=== PATIENT | female | born 1970 | race Caucasian/White ===

== ENCOUNTER 2017-03-09 14:13 | Emergency (ER) | payer BC ==
[2017-03-09 14:28] VITALS: BP 114/69
--- NOTE | 2017-03-09 14:45 | EDM.PDOC ---
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. She states that she gets her 15 minute break every 2 hours and does have a dinner break 4 hours into the shift. Therefore she should be well hydrated and blood sugar should be maintained. She states that she shakes and she feels dizzy. He finds it difficult to keep on with her shift. She was wondering if there was medication that might help this. On examination in the room she is pacing the floor she is standing and moving constantly him side to side. She talks little faster than normal. Blood pressure tends to run low such as 98-95 systolic. It is possible that prolonged standing may be causing some degree of orthostasis. However she is on several psychoactive made medications that may be causing a tremor or shaking is due to the timeframe that they're taken in. Particularly the Seroquel. She uses 2 Xanax tablets at bedtime to help sleep. On my assessment she appears quite anxious. Onset: Other (Symptoms been going on for at least 3-4 months.) Duration: Week(s):, Chronic Location: Reports: Generalized (Generalized sensation of feeling restless, shaky ,weak and perhaps dizzy. She feels strongly that it's the continual looking at the computer monitor and bank cashier register that causes the problems. She's had her glasses adjusted 4 different times with no improvement in symptoms.) Quality: Reports: Same as Previous Episode Severity: Moderate Improves with: Reports: None Worsens with: Reports: Other (Continued work seems to make the problem gradually worsened.) Context: Reports: Other Associated Symptoms: Reports: Weakness. 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 (see below) - Related Data Allergies Allergy/AdvReac Type Severity Reaction Status Date / Time acetaminophen [From Percocet] Allergy Nausea and Verified 03/09/17 14:28 Vomiting aspirin [From Percodan] Allergy Nausea and Verified 03/09/17 14:28 Vomiting oxycodone HCl [From Percocet] Allergy Nausea and Verified 03/09/17 14:28 Vomiting oxycodone terephthalate Allergy Nausea and Verified 03/09/17 14:28 [From Percodan] Vomiting prochlorperazine edisylate Allergy Seizure Verified 03/09/17 14:28 [From Compazine] prochlorperazine maleate Allergy Seizure Verified 03/09/17 14:28 [From Compazine] Home Meds: Home Meds ALPRAZolam [Xanax] 2 mg PO ASDIRECTED PRN 04/08/16 [History] Mirtazapine [Remeron] 45 mg PO BEDTIME 04/08/16 [History] QUEtiapine Fumarate [Seroquel] 600 mg PO BEDTIME 04/08/16 [History] Topiramate 25 mg PO BID 04/08/16 [History] ALPRAZolam [Xanax] 1 mg PO BID #12 tablet 03/09/17 [Rx] Past Medical History Other HEENT History: jaw surgery for underbite Respiratory History: Reports: Asthma, Other (See Below) Other Respiratory History: latent TB Other OB/BYN History: breast surgery Psychiatric History: Reports: Anxiety Other Psychiatric History: insominia - Infectious Disease History Infectious Disease History: Reports: Chicken Pox Social & Family History - Tobacco Use Smoking Status *Q: Never Smoker Second Hand Smoke Exposure: No - Caffeine Use Caffeine Use: Reports: None - Recreational Drug Use Recreational Drug Use: No - Living Situation & Occupation Living situation: Reports: Single Occupation: Employed [employer] [facility] - Review of Systems Review Of Systems: See Below Constitutional: Reports: Fatigue, Weight Gain. Denies: Fever, Chills, Malaise, Weakness, Night Sweats, Diaphoresis, Decreased Appetite, Weight Loss HEENT: Reports: No Symptoms Respiratory: Reports: No Symptoms Cardiovascular: Reports: No Symptoms Endocrine: Reports: Fatigue GI/Abdominal: Reports: Constipation : Reports: No Symptoms Musculoskeletal: Reports: No Symptoms Skin: Reports: No Symptoms Neurological: Reports: Dizziness, Weakness. Denies: Headache, Numbness, Paresthesia, Pre-Existing Deficit, Seizure, Syncope, Tingling, Tremors, Trouble Speaking, Difficulty Walking, Change in Speech, Gait Disturbance Psychiatric: Reports: Anxiety, Mood Lability. Denies: Suicidal Ideation Hematologic/Lymphatic: Reports: No Symptoms Immunologic: Reports: No Symptoms ED EXAM, DIZZINESS - Physical Exam Exam: See Below Exam Limited By: No Limitations General Appearance: Alert, WD/WN, Other (Appears moderately anxious and unable to stand still. She appears mildly agitated. By history she has bipolar affective disorder with chronic insomnia. She said she sleeps well.) Eye Exam: Bilateral Eye: Normal Inspection Throat/Mouth: Normal Inspection, Normal Lips, Normal Oropharynx Head Exam: Atraumatic, Normocephalic Neck: Normal Inspection, Supple, Non-Tender, Full Range of Motion Respiratory/Chest: No Respiratory Distress, Lungs Clear, Normal Breath Sounds, Respiratory Distress Cardiovascular: Normal Peripheral Pulses, Regular Rate, Rhythm, No Edema, No Gallop, No Murmur GI/Abdominal: Normal Bowel Sounds, Soft, Non-Tender, No Organomegaly Neurological: Alert, Normal Dorsiflexion, CN II-XII Intact, Normal Gait, Oriented x 3 Back Exam: Normal Inspection, Full Range of Motion Extremities: Normal Inspection, Normal Range of Motion, Non-Tender, Normal Capillary Refill Psychiatric: Anxious, Other Skin Exam: Warm, Dry (Mildly agitated), Intact, Normal Color, No Rash Course - Vital Signs Last Recorded V/S: Last Vital Signs Temp 36.2 C 03/09/17 14:25 Pulse 82 03/09/17 14:25 Resp 20 03/09/17 14:25 BP 114/69 03/09/17 14:25 Pulse Ox 100 03/09/17 14:25 - Radiology Interpretation Free Text/Narrative:: 46-year-old female with psychiatric illness I suspect bipolar affective disorder presents to the ED with complaints that 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 she develops generalized sense of unwellness. The symptoms include sense of dizziness shakiness decreased alertness in terms of ability to focus on task at hand. By history she gets a dinner break 4 hours and her shift and she keeps water till at all times therefore stopped appears to be well hydrated and unlikely to have any physiological hypoglycemia. She finds the symptoms quite distressful. I don't have any magic cure for this I'm going to suggest a 1 mg Xanax at the noon hour meal to see if this relaxes her enough to finish her shift. She is only to take the extra milligram of Xanax on the days that she works. I gave her 10 tablets as a trial of medication to see if this would help. Departure - Departure Time of Disposition: 14:52 Disposition: Home, Self-Care 01 Condition: Fair Clinical Impression: Orthostatic dizziness, Shakiness, Generalized anxiety disorder - Discharge Information Prescriptions: ALPRAZolam [Xanax] 1 mg PO BID #12 tablet Referrals: PCP,None [Primary Care Provider] - Forms: ED Department Discharge Additional Instructions: Evaluation in the emergency room today in regards to problems occurring in the workplace. Identified for the last 3-4 months that you're working at the [employer] between 4 and 5 hours you start to feel unwell. This means that you develop a sense of dizziness and offkilter off balance feeling and shakiness. It appears that you maintain hydration and get a dinner break 4 hours anterior shift so therefore low blood sugar should not be playing a role in current symptoms. Her current medications do carry a great deal of side effects that may or may not be contributing to symptoms. Prolonged standing does lower your blood pressure and your blood pressure tends to be on the low side. 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
== END 2017-03-09 15:00 | disposition home or self-care (01) ==
LOC: JD.ED 14:13
DX: R42 Dizziness and giddiness (principal); F41.1 Generalized anxiety disorder; J45.909 Unspecified asthma, uncomplicated; Z88.6 Allergy status to analgesic agent; Z88.8 Allergy status to other drugs, medicaments and biological substances
CPT/HCPCS: 99283; 99284

== ENCOUNTER 2017-03-18 17:13 | Emergency (ER) | payer BC | END 2017-03-18 18:20 | disposition left against medical advice (07) | LOC: JD.ED 17:13 | DX: Z53.21 Procedure and treatment not carried out due to patient leaving prior to being seen by health care provider (principal) | CPT/HCPCS: 99284-25 ==

== ENCOUNTER 2018-09-27 07:20 | Day surgery (SDC) | payer MEDICAID ==
[~2018-09-27 07:20] MED LIST: Lactated Ringers 1,000 ML IV SCH; Lidocaine 1%/Sod Bicarbonate in NS 8.4% 1 ML Syringe IDERM PRN; Sodium Chloride 0.9% 10 ML Syringe FLUSH PRN
--- NOTE | 2018-09-27 07:34 | PCM.PREANE ---
Preanesthetic Assessment - Anesthesia/Transfusion/Family Hx Anesthesia History: Prior Anesthesia Without Reaction Family History of Anesthesia Reaction: No Transfusion History: No Prior Transfusion(s) - Review of Systems General: No Symptoms Pulmonary: No Symptoms Cardiovascular: No Symptoms Gastrointestinal: Abdominal Pain (LLQ) Neurological: No Symptoms Other: Reports: Easy Bruising - Physical Assessment NPO Status Date: 09/26/18 NPO Status Time: 00:00 Pulse: 74 O2 Sat by Pulse Oximetry: 95 Respiratory Rate: 16 Blood Pressure: 124/69 Temperature: 36.6 C Height: 1.83 m Weight: 88.904 kg ASA Class: 3 Mental Status: Alert & Oriented x3 Airway Class: Mallampati = 2 Dentition: Reports: Dentures Thyro-Mental Finger Breadths: 3 Mouth Opening Finger Breadths: 3 ROM/Head Extension: Limited/Partial (muscle pain) Lungs: Clear to Auscultation, Normal Respiratory Effort Cardiovascular: Regular Rate, Regular Rhythm - Allergies Allergies/Adverse Reactions: Allergies Allergy/AdvReac Type Severity Reaction Status Date / Time acetaminophen [From Percocet] Allergy Nausea and Verified 09/24/18 14:28 Vomiting aspirin [From Percodan] Allergy Nausea and Verified 09/24/18 14:28 Vomiting oxycodone HCl [From Percocet] Allergy Nausea and Verified 09/24/18 14:28 Vomiting oxycodone terephthalate Allergy Nausea and Verified 09/24/18 14:28 [From Percodan] Vomiting prochlorperazine edisylate Allergy Seizure Verified 09/24/18 14:28 [From Compazine] prochlorperazine maleate Allergy Seizure Verified 09/24/18 14:28 [From Compazine] Pet Dander Allergy Shortness Uncoded 09/24/18 14:28 of Breath - Blood Blood Available: No Product(s) Available: None - Anesthesia Plan Beta Janeen: Metoprolol Med Last Dose Date: 09/26/18 Med Last Dose Time: 20:00 - Acknowledgements Anesthesia Type Planned: MAC Pt an Appropriate Candidate for the Planned Anesthesia: Yes Alternatives and Risks of Anesthesia Discussed w Pt/Guardian: Yes Pt/Guardian Understands and Agrees with Anesthesia Plan: Yes PreAnesthesia Questionnaire HEENT History: Reports: None Other HEENT History: jaw surgery for underbite Cardiovascular History: Reports: None Respiratory History: Reports: Asthma Other Respiratory History: latent TB Gastrointestinal History: Reports: None, GERD Genitourinary History: Reports: None 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 Other OB/BYN History: breast surgery Musculoskeletal History: Reports: None Neurological History: Reports: None Psychiatric History: Reports: Anxiety, Depression Other Psychiatric History: insominia Endocrine/Metabolic History: Reports: None Hematologic History: Reports: None Immunologic History: Reports: None Oncologic (Cancer) History: Reports: None Dermatologic History: Reports: None - Infectious Disease History Infectious Disease History: Reports: Chicken Pox, Other (See Below) Other Infectious Disease History: latent TB - Past Surgical History Head Surgeries/Procedures: Reports: None Other HEENT Surgeries/Procedures: Jaw Surgery Cardiovascular Surgical History: Reports: None Respiratory Surgical History: Reports: None GI Surgical History: Reports: Colonoscopy, EGD Female Surgical History: Reports: Breast Implant Endocrine Surgical History: Reports: None Neurological Surgical History: Reports: None Musculoskeletal Surgical History: Reports: None Oncologic Surgical History: Reports: None Dermatological Surgical History: Reports: None - SUBSTANCE USE Smoking Status *Q: Never Smoker Tobacco Use Within Last Twelve Months: No Second Hand Smoke Exposure: No Days Per Week of Alcohol Use: 0 Number of Drinks Per Day: 0 Total Drinks Per Week: 0 Recreational Drug Use History: No - HOME MEDS Home Medications: Home Meds . [No Known Home Meds] 09/24/18 [History] - CURRENT (IN HOUSE) MEDS Current Meds: Current Medications Lactated Ringer's (Ringers, Lactated) 1,000 mls @ 125 mls/hr IV ASDIRECTED SANA Lidocaine/Sodium Bicarbonate (Buffered Lidocaine 1% In Ns 8.4%) 0.25 ml IDERM ONETIME PRN PRN Reason: Prior to IV Start Sodium Chloride (Saline Flush) 10 ml FLUSH ASDIRECTED PRN PRN Reason: Keep Vein Open
[2018-09-27] MEDS ORDERED: Propofol 200 MG/20 ML SDV ONE (08:13)
[2018-09-27] MEDS ORDERED: fentaNYL 100 MCG/2 ML SDV ONE (08:14)
[2018-09-27] MEDS ORDERED: Midazolam 1 MG/ML 2 ML SDV ONE (08:14)
[2018-09-27] MEDS ORDERED: Lidocaine 1% 4 ML ONE (08:15)
--- NOTE | 2018-09-27 08:30 | PCM.PREANE ---
Preanesthetic Assessment - Anesthesia/Transfusion/Family Hx Anesthesia History: Prior Anesthesia Without Reaction Family History of Anesthesia Reaction: No Transfusion History: No Prior Transfusion(s) - Review of Systems General: Appetite Pulmonary: No Symptoms Cardiovascular: No Symptoms Gastrointestinal: Abdominal Pain Neurological: No Symptoms Other: Reports: Depression, Anxiety (Very apprehensive this morning. All questions answered, requesting medications to help her relax. ) - Physical Assessment NPO Status Date: 09/27/18 NPO Status Time: 07:20 (Sips of Tea) Pulse: 64 O2 Sat by Pulse Oximetry: 100 Respiratory Rate: 20 Blood Pressure: 108/68 Temperature: 37.2 C Vital Signs: Last Vital Signs Temp 36.6 C 09/27/18 07:50 Pulse 74 09/27/18 07:50 Resp 16 09/27/18 07:50 BP 124/69 09/27/18 07:50 Pulse Ox 95 09/27/18 07:50 Height: 1.78 m Weight: 67.132 kg ASA Class: 2 Mental Status: Alert & Oriented x3 Airway Class: Mallampati = 2 Dentition: Reports: Normal Dentition, Caries Thyro-Mental Finger Breadths: 3 Mouth Opening Finger Breadths: 3 ROM/Head Extension: Full Lungs: Clear to Auscultation, Normal Respiratory Effort Cardiovascular: Regular Rate, Regular Rhythm - Allergies Allergies/Adverse Reactions: Allergies Allergy/AdvReac Type Severity Reaction Status Date / Time acetaminophen [From Percocet] Allergy Nausea and Verified 09/24/18 14:28 Vomiting aspirin [From Percodan] Allergy Nausea and Verified 09/24/18 14:28 Vomiting oxycodone HCl [From Percocet] Allergy Nausea and Verified 09/24/18 14:28 Vomiting oxycodone terephthalate Allergy Nausea and Verified 09/24/18 14:28 [From Percodan] Vomiting prochlorperazine edisylate Allergy Seizure Verified 09/24/18 14:28 [From Compazine] prochlorperazine maleate Allergy Seizure Verified 09/24/18 14:28 [From Compazine] Pet Dander Allergy Shortness Uncoded 09/24/18 14:28 of Breath - Blood Blood Available: No Product(s) Available: None - Anesthesia Plan Pre-Op Medication Ordered: Anxiolytic - Acknowledgements Anesthesia Type Planned: MAC Pt an Appropriate Candidate for the Planned Anesthesia: Yes Alternatives and Risks of Anesthesia Discussed w Pt/Guardian: Yes Pt/Guardian Understands and Agrees with Anesthesia Plan: Yes PreAnesthesia Questionnaire HEENT History: Reports: None Other HEENT History: jaw surgery for underbite Cardiovascular History: Reports: None Respiratory History: Reports: Asthma Other Respiratory History: latent TB Gastrointestinal History: Reports: None, GERD Genitourinary History: Reports: None 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 Other OB/BYN History: breast surgery Musculoskeletal History: Reports: None Neurological History: Reports: None Psychiatric History: Reports: Anxiety, Depression Other Psychiatric History: insominia Endocrine/Metabolic History: Reports: None Hematologic History: Reports: None Immunologic History: Reports: None Oncologic (Cancer) History: Reports: None Dermatologic History: Reports: None - Infectious Disease History Infectious Disease History: Reports: Chicken Pox, Other (See Below) Other Infectious Disease History: latent TB - Past Surgical History Head Surgeries/Procedures: Reports: None Other HEENT Surgeries/Procedures: Jaw Surgery Cardiovascular Surgical History: Reports: None Respiratory Surgical History: Reports: None GI Surgical History: Reports: Colonoscopy, EGD Female Surgical History: Reports: Breast Implant Endocrine Surgical History: Reports: None Neurological Surgical History: Reports: None Musculoskeletal Surgical History: Reports: None Oncologic Surgical History: Reports: None Dermatological Surgical History: Reports: None - SUBSTANCE USE Smoking Status *Q: Never Smoker Tobacco Use Within Last Twelve Months: No Second Hand Smoke Exposure: No Days Per Week of Alcohol Use: 0 Number of Drinks Per Day: 0 Total Drinks Per Week: 0 Recreational Drug Use History: No - HOME MEDS Home Medications: Home Meds . [No Known Home Meds] 09/24/18 [History] - CURRENT (IN HOUSE) MEDS Current Meds: Current Medications Lactated Ringer's (Ringers, Lactated) 1,000 mls @ 125 mls/hr IV ASDIRECTED SANA Last Admin: 09/27/18 07:50 Dose: 125 mls/hr Lidocaine/Sodium Bicarbonate (Buffered Lidocaine 1% In Ns 8.4%) 0.25 ml IDERM ONETIME PRN PRN Reason: Prior to IV Start Last Admin: 09/27/18 07:49 Dose: 0.25 ml Sodium Chloride (Saline Flush) 10 ml FLUSH ASDIRECTED PRN PRN Reason: Keep Vein Open Discontinued Medications Fentanyl (Sublimaze) Confirm Administered Dose 100 mcg .ROUTE .STK-MED ONE Stop: 09/27/18 08:15 Lidocaine HCl (Xylocaine-Mpf 1%) Confirm Administered Dose 4 mls @ as directed .ROUTE .STK-MED ONE Stop: 09/27/18 08:16 Midazolam HCl (Versed 1 Mg/Ml) Confirm Administered Dose 2 mg .ROUTE .STK-MED ONE Stop: 09/27/18 08:15 Propofol (Diprivan 20 Ml) Confirm Administered Dose 600 mg .ROUTE .STK-MED ONE Stop: 09/27/18 08:14
[2018-09-27] MEDS ORDERED: Ondansetron 4 MG/2 ML SDV ONE (08:55)
--- NOTE | 2018-09-27 09:44 | PCM.OPNOTE ---
- General Post-Op/Procedure Note Date of Surgery/Procedure: 09/27/18 Operative Procedure(s): EGD with bx and colonoscopy to cecum with bx Pre Op Diagnosis: weight loss rectal bleeding Post-Op Diagnosis: Same Anesthesia Technique: MAC Primary Surgeon: Jorge Mcbride EBL in mLs: 0 Complications: None Condition: Good
--- NOTE | 2018-09-27 09:45 | PCM48HPAN ---
Post Anesthesia Note - EVALUATION WITHIN 48HRS OF ANESTHETIC Vital Signs in Normal Range: Yes Patient Participated in Evaluation: Yes Respiratory Function Stable: Yes Airway Patent: Yes Cardiovascular Function Stable: Yes Hydration Status Stable: Yes Pain Control Satisfactory: Yes Nausea and Vomiting Control Satisfactory: Yes Mental Status Recovered: Yes Pulse Rate: 74 SaO2: 100 Resp Rate: 16 Temperature: 36.4 C Blood Pressure: 100/73
[2018-09-27 10:52] VITALS: BP 103/71
--- NOTE | 2018-09-28 07:54 | OR ---
DATE OF OPERATION: 09/27/2018 SURGEON: Jorge Mcbride MD PREOPERATIVE DIAGNOSIS: Weight loss and rectal bleeding. POSTOPERATIVE DIAGNOSIS: Weight loss and rectal bleeding. OPERATION PERFORMED: Esophagogastroduodenoscopy with biopsy. FINDINGS: Normal study. ANESTHESIA: IV sedation. DESCRIPTION OF PROCEDURE: The patient was taken to the endoscopy room, placed in a supine position, connected to monitoring equipment, given IV sedation. Bite block was inserted. She was placed in left lateral position. A video Olympus gastroscope placed in the posterior oropharynx and under direct vision threaded past the cricopharyngeus, down the esophagus, into the stomach. The stomach was insufflated, and the scope passed through the pylorus to the second portion of the duodenum, slowly withdrawn showing a normal second portion of the duodenum, duodenal bulb, and pyloric channel. Antrum, body, and cardia of the stomach and fundus were viewed and were normal. J-maneuver was performed. Biopsy of the antrum was then performed looking for H. pylori. The hiatus was normal. Scope withdrawn to the GE junction, which was normal, located at 40 cm. Rest of the esophagus viewed as the scope withdrawn was normal. The patient tolerated the procedure. Specimen was sent to pathology in a labeled container. IV sedation will be continued for colonoscopy. ESTIMATED BLOOD LOSS: MMODAL /[id number]
--- NOTE | 2018-09-28 07:55 | OR ---
DATE OF OPERATION: 09/27/2018 SURGEON: Jorge Mcbride MD PREOPERATIVE DIAGNOSIS: Rectal bleeding. POSTOPERATIVE DIAGNOSIS: Rectal bleeding. OPERATION PERFORMED: Colonoscopy to cecum with cannulation of the ileum. FINDINGS: Ring-like lesion in the lower sigmoid and rectum. Biopsies were taken to delineate the pathology of the ring lesions if any. There were no angiodysplasias, neoplasias, large tumor masses, ulcerations, or diverticulum noted. The ileum was normal. ANESTHESIA: The procedure is colonoscopy to cecum with biopsy done under IV sedation with collection of specimen for toxigenic bacteria. DESCRIPTION OF PROCEDURE: The patient after had been connected to monitoring equipment and given IV sedation for upper GI endoscopy, IV sedation was continued for colonoscopy. She was placed in the left lateral position. Perianal area was inspected and was normal. Rectal exam showed good sphincter tone. A video Olympus colonoscope was then introduced into the rectum and threaded up without problem to the cecum, where the appendicular orifice was noted and the ileum cannulated. Prep was excellent. [place] Cle[employer]ing score grade A throughout the colon. The scope was slowly withdrawn showing the cecum, ascending colon, transverse colon, descending colon, sigmoid colon, and rectum. A retroflexed view did not show any hemorrhoids. There were ring-like lesions in the lower sigmoid and rectal area, significance unknown. It was biopsied. The patient tolerated the procedure, sent to the recovery room in a stable condition, will be followed up with Dr. Kristy Angel. ESTIMATED BLOOD LOSS: MMODAL /[id number]
== END 2018-09-27 10:44 | disposition home or self-care (01) ==
LOC: JD.SDS 07:20
PROVIDERS: ATTEND Surgery
DX: K62.5 Hemorrhage of anus and rectum (principal); R63.4 Abnormal weight loss; K29.50 Unspecified chronic gastritis without bleeding; K63.89 Other specified diseases of intestine; J45.909 Unspecified asthma, uncomplicated; F32.9 Major depressive disorder, single episode, unspecified; F41.9 Anxiety disorder, unspecified; Z79.899 Other long term (current) drug therapy; Z80.0 Family history of malignant neoplasm of digestive organs; Z88.5 Allergy status to narcotic agent; Z88.8 Allergy status to other drugs, medicaments and biological substances
CPT/HCPCS: 43239; 45380; 87046; 87493; 89055; J2250; J2405; J2704; J3010; J7120; J2001

== ENCOUNTER 2018-12-18 18:27 | Emergency (ER) | payer MEDICAID ==
[2018-12-18 18:59] VITALS: BP 130/84
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
== END 2018-12-18 21:03 | disposition home or self-care (01) ==
LOC: JD.ED 18:27
DX: F41.9 Anxiety disorder, unspecified (principal); R51 Headache; L85.3 Xerosis cutis; Z91.09 Other allergy status, other than to drugs and biological substances; Z88.6 Allergy status to analgesic agent; Z88.8 Allergy status to other drugs, medicaments and biological substances
CPT/HCPCS: 99283

== ENCOUNTER 2019-02-08 14:24 | Emergency (ER) | payer MEDICAID ==
[2019-02-08 14:50] VITALS: BP 100/81
--- NOTE | 2019-02-08 15:37 | EDM.PDOC ---
ED HPI GENERAL MEDICAL PROBLEM - General Chief Complaint: Behavioral/Psych Stated Complaint: ANXIETY Time Seen by Provider: 02/08/19 14:37 Source of Information: Reports: Patient History Limitations: Reports: No Limitations - History of Present Illness INITIAL COMMENTS - FREE TEXT/NARRATIVE: 48 y/o female presents to ER with cc "high anxiety issues and I need some Xanax. " She has a extensive history of migraines, and anxiety issues. She reports she can't see her PCP for 2 days and she ran out of her Xanax 4 days ago. She complains she hasn't sleep and feels like she is gone to . She denies any fever, chills, headache, nausea or vomiting. Onset: Today Onset Date: 02/08/19 Duration: Getting Worse, Intermittent Severity: Mild Improves with: Reports: None Worsens with: Reports: None Associated Symptoms: Reports: Headaches, Other (anxiety). Denies: Fever/Chills , Nausea/Vomiting, Rash, Seizure, Shortness of Breath, Syncope, Weakness Headache Pain Score (Numeric/FACES): 9 - Related Data Allergies Allergy/AdvReac Type Severity Reaction Status Date / Time cat dander Allergy Shortness Verified 02/08/19 14:41 of Breath dog dander Allergy Shortness Verified 02/08/19 14:41 of Breath acetaminophen [From Percocet] AdvReac Nausea and Verified 02/08/19 14:41 Vomiting aspirin [From Percodan] AdvReac Nausea and Verified 02/08/19 14:41 Vomiting oxycodone HCl [From Percocet] AdvReac Nausea and Verified 02/08/19 14:41 Vomiting oxycodone terephthalate AdvReac Nausea and Verified 02/08/19 14:41 [From Percodan] Vomiting prochlorperazine edisylate AdvReac Seizure Verified 02/08/19 14:41 [From Compazine] prochlorperazine maleate AdvReac Seizure Verified 02/08/19 14:41 [From Compazine] Home Meds: Home Meds Budesonide/Formoterol [Symbicort 160-4.5 MCG] 2 inhalation INH BID 09/27/18 [ History] ALPRAZolam 2 mg PO BEDTIME 12/18/18 [History] Control 1 tab PO DAILY 12/18/18 [History] Past Medical History HEENT History: Reports: None Other HEENT History: jaw surgery for underbite Cardiovascular History: Reports: None Respiratory History: Reports: Asthma, TB Other Respiratory History: latent TB Gastrointestinal History: Reports: None, GERD Genitourinary History: Reports: None 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 Psychiatric History: Reports: Anxiety, Bipolar, Depression Other Psychiatric History: insominia Endocrine/Metabolic History: Reports: None Hematologic History: Reports: None Immunologic History: Reports: None Oncologic (Cancer) History: Reports: None Dermatologic History: Reports: None - Infectious Disease History Infectious Disease History: Reports: Chicken Pox, TB Other Infectious Disease History: latent TB - Past Surgical History Head Surgeries/Procedures: Reports: None HEENT Surgical History: Reports: Oral Surgery, Other (See Below) Cardiovascular Surgical History: Reports: None GI Surgical History: Reports: Colonoscopy, EGD Other GI Surgeries/Procedures: biopsies with procedures. Female Surgical History: Reports: Breast Implant, D&C Endocrine Surgical History: Reports: None Musculoskeletal Surgical History: Reports: None Oncologic Surgical History: Reports: None Dermatological Surgical History: Reports: None Social & Family History - Family History Family Medical History: Noncontributory - Tobacco Use Smoking Status *Q: Never Smoker Second Hand Smoke Exposure: No - Caffeine Use Caffeine Use: Reports: None Other Caffeine Use: states hasn't had in over one week. - Recreational Drug Use Recreational Drug Use: No - Living Situation & Occupation Living situation: Reports: Single, with Family (Mother) Occupation: Unemployed ED ROS GENERAL - Review of Systems Review Of Systems: See Below Constitutional: Denies: Fever, Chills HEENT: Reports: Glasses Respiratory: Denies: Shortness of Breath Cardiovascular: Denies: Chest Pain Endocrine: Reports: Fatigue GI/Abdominal: Reports: No Symptoms : Reports: No Symptoms Musculoskeletal: Reports: No Symptoms Skin: Reports: No Symptoms Neurological: Reports: Headache. Denies: Confusion, Dizziness, Numbness Psychiatric: Reports: Agitation, Anxiety Hematologic/Lymphatic: Reports: No Symptoms Immunologic: Reports: No Symptoms - Physical Exam Exam: See Below Exam Limited By: Uncooperative General Appearance: Alert, No Apparent Distress Neck: Normal Inspection, Supple, Non-Tender Respiratory/Chest: No Respiratory Distress, Lungs Clear, Normal Breath Sounds, No Accessory Muscle Use, Chest Non-Tender Cardiovascular: Normal Peripheral Pulses, Regular Rate, Rhythm, No Edema, No Gallop, No JVD, No Murmur, No Rub Neuro Exam (Abbreviated): Alert, Oriented, CN II-XII Intact, Normal Cognition, Normal Gait Back Exam: Normal Inspection, Full Range of Motion Psychiatric: Normal Affect, Anxious Skin Exam: Warm, Dry, Intact, Normal Color, No Rash Course - Vital Signs Last Recorded V/S: Last Vital Signs Temp 99.1 F 02/08/19 14:35 Pulse 88 02/08/19 14:35 Resp 16 02/08/19 14:35 BP 100/81 02/08/19 14:35 Pulse Ox 99 02/08/19 14:35 - Re-Assessments/Exams Free Text/Narrative Re-Assessment/Exam: 02/08/19 15:37 48 y/o female presented to ER with cc anxiety and "needing some Xanax that she ran out of 4 days ago." Her PDMP revealed she received 90 1 mg tablets on . I informed her I would not give her anymore Xanax. She got made and upset , became verbally abusive. I instructed her to follow up with PCP for management and treatment of her Xanax. Instructed to return to the ER for any new or acute worsening symptoms. Departure - Departure Time of Disposition: 15:15 Disposition: Home, Self-Care 01 Condition: Good Clinical Impression: Anxiety - Discharge Information *PRESCRIPTION DRUG MONITORING PROGRAM REVIEWED*: Yes *COPY OF PRESCRIPTION DRUG MONITORING REPORT IN PATIENT SPENCER: Yes Instructions: Generalized Anxiety Disorder, Adult Referrals: Madison Harvey MD [Primary Care Provider] - Additional Instructions: You have been diagnosis with anxiety. I will not refill your Xanax you need to follow up with your PCP for further evaluation and treatment of your anxiety. Return to the ER for any new or acute worsening symptoms.
== END 2019-02-08 15:24 | disposition home or self-care (01) ==
LOC: JD.ED 14:24
DX: F41.9 Anxiety disorder, unspecified (principal); J45.909 Unspecified asthma, uncomplicated; F31.9 Bipolar disorder, unspecified; Z88.8 Allergy status to other drugs, medicaments and biological substances; Z79.899 Other long term (current) drug therapy; Z79.3 Long term (current) use of hormonal contraceptives
CPT/HCPCS: 99281; 99283

== ENCOUNTER 2019-02-10 15:40 | Emergency (ER) | payer MEDICAID ==
[2019-02-10 15:52] VITALS: BP 112/87
--- NOTE | 2019-02-10 18:54 | EDM.PDOCBH ---
ED HPI GENERAL MEDICAL PROBLEM - General Chief Complaint: Behavioral/Psych Stated Complaint: NEED DETOX Time Seen by Provider: 02/10/19 15:49 - History of Present Illness INITIAL COMMENTS - FREE TEXT/NARRATIVE: 48-year-old female presents emergency room with worsening anxiety. The patient saw a psychiatrist on the this month was given #90 1 mg Xanax tablets to last her a month. She went through these in 3 days. It did not completely control her anxiety. She did not do this in an attempt to hurt herself. Patient is been on Xanax for many years over 20, according to the patient because nothing seems to work for anxiety. Patient is not using any alcohol or recreational drugs. Patient has been without this medication for the last 6 days and her anxiety is worse. Head Pain Score (Numeric/FACES): 10 - Related Data Allergies Allergy/AdvReac Type Severity Reaction Status Date / Time cat dander Allergy Shortness Verified 02/10/19 15:53 of Breath dog dander Allergy Shortness Verified 02/10/19 15:53 of Breath acetaminophen [From Percocet] AdvReac Nausea and Verified 02/10/19 15:53 Vomiting aspirin [From Percodan] AdvReac Nausea and Verified 02/10/19 15:53 Vomiting oxycodone HCl [From Percocet] AdvReac Nausea and Verified 02/10/19 15:53 Vomiting oxycodone terephthalate AdvReac Nausea and Verified 02/10/19 15:53 [From Percodan] Vomiting prochlorperazine edisylate AdvReac Seizure Verified 02/10/19 15:53 [From Compazine] prochlorperazine maleate AdvReac Seizure Verified 02/10/19 15:53 [From Compazine] Home Meds: Home Meds Control 1 tab PO DAILY 12/18/18 [History] ALPRAZolam [Xanax] 02/10/19 [History] ALPRAZolam [Xanax] 1 mg PO Q8H PRN #6 tablet 02/10/19 [Rx] Hydroxizine. 02/10/19 [History] Nitrofurantoin Monohyd/M-Cryst [Macrobid 100 mg Capsule] 100 mg PO Q12H #14 capsule 02/10/19 [Rx] Past Medical History HEENT History: Reports: None Other HEENT History: jaw surgery for underbite Cardiovascular History: Reports: None Respiratory History: Reports: Asthma, TB Other Respiratory History: latent TB Gastrointestinal History: Reports: None, GERD Genitourinary History: Reports: None FIRE PREVENTION INSPECTOR History: Reports: Other (See Below) Other FIRE PREVENTION INSPECTOR History: states has heavy periods Musculoskeletal History: Reports: None Neurological History: Reports: Concussion, Head Trauma, Migraines, Other (See Below) Other Neuro History: states has post-concussive disorder. 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 that put her at high risk for stroke or seizure Psychiatric History: Reports: Anxiety, Bipolar, Depression Other Psychiatric History: insominia Endocrine/Metabolic History: Reports: None Hematologic History: Reports: None Immunologic History: Reports: None Oncologic (Cancer) History: Reports: None Dermatologic History: Reports: None - Infectious Disease History Infectious Disease History: Reports: Chicken Pox, TB Other Infectious Disease History: latent TB - Past Surgical History Head Surgeries/Procedures: Reports: None HEENT Surgical History: Reports: Oral Surgery, Other (See Below) Cardiovascular Surgical History: Reports: None GI Surgical History: Reports: Colonoscopy, EGD Other GI Surgeries/Procedures: biopsies with procedures. Female Surgical History: Reports: Breast Implant, D&C Endocrine Surgical History: Reports: None Musculoskeletal Surgical History: Reports: None Oncologic Surgical History: Reports: None Dermatological Surgical History: Reports: None Social & Family History - Family History Family Medical History: Noncontributory - Tobacco Use Smoking Status *Q: Unknown Ever Smoked - Caffeine Use Caffeine Use: Reports: None Other Caffeine Use: states hasn't had in over one week. - Living Situation & Occupation Living situation: Reports: Single, with Family (Mother) Occupation: Unemployed ED ROS GENERAL - Review of Systems Review Of Systems: See Below Constitutional: Reports: No Symptoms HEENT: Reports: No Symptoms Respiratory: Reports: No Symptoms Cardiovascular: Reports: No Symptoms Endocrine: Reports: No Symptoms GI/Abdominal: Reports: No Symptoms : Reports: Dysuria, Frequency Musculoskeletal: Reports: No Symptoms Skin: Reports: No Symptoms Neurological: Reports: No Symptoms Psychiatric: Reports: Anxiety. Denies: Suicidal Ideation ED EXAM, BEHAVIORAL HEALTH - Physical Exam Exam: See Below Exam Limited By: No Limitations General Appearance: Alert, Anxious Throat/Mouth: Normal Inspection, Normal Lips, Normal Teeth, Normal Gums, Normal Oropharynx, Normal Voice, No Airway Compromise Head: Atraumatic, Normocephalic Neck: Normal Inspection, Supple, Non-Tender, Full Range of Motion Respiratory/Chest: No Respiratory Distress, Lungs Clear, Normal Breath Sounds Cardiovascular: Regular Rate, Rhythm, No Edema, No Murmur GI/Abdominal: Normal Bowel Sounds, Soft, Other (Moderate tenderness in the suprapubic area no other tenderness noted no rigidity rebound or guarding) Psychiatric: Alert, Other (She is quite anxious at this time not agitated) COURSE, BEHAVIORAL HEALTH COMP - Course Vital Signs: Last Vital Signs Temp 36.2 C 02/10/19 15:47 Pulse 114 H 02/10/19 15:47 Resp 18 02/10/19 15:47 BP 112/87 02/10/19 15:47 Pulse Ox 100 02/10/19 15:47 Orders, Labs, Meds: Active Orders 24 hr Category Date Time Status CULTURE URINE [RM] Stat Lab 02/10/19 18:43 Ordered Laboratory Tests 02/10/19 02/10/19 02/10/19 Range/Units 16:55 16:55 17:20 WBC 6.77 (3.98-10.04) K/mm3 RBC 4.72 (3.98-5.22) M/mm3 Hgb 14.0 (11.2-15.7) gm/L Hct 40.1 (34.1-44.9) % MCV 85.0 (79.4-94.8) fl MCH 29.7 (25.6-32.2) pg MCHC 34.9 (32.2-35.5) g/dl RDW Std Deviation 36.9 (36.4-46.3) fL Plt Count 290 (182-369) K/mm3 MPV 8.7 L (9.4-12.3) fl Neutrophils % (Manual) 72 H (40-60) % Band Neutrophils % 0 (0-10) % Lymphocytes % (Manual) 22 (20-40) % Atypical Lymphs % 0 % Monocytes % (Manual) 2 (2-10) % Eosinophils % (Manual) 2 (0.7-5.8) % Basophils % (Manual) 2 H (0.1-1.2) Platelet Estimate Adequate RBC Morph Comment Normal Sodium 137 (136-145) mEq/L Potassium 3.7 (3.5-5.1) mEq/L Chloride 102 (98-107) mEq/L Carbon Dioxide 18 L (21-32) mEq/L Anion Gap 20.7 H (5-15) BUN 8 (7-18) mg/dL Creatinine 1.0 (0.55-1.02) mg/dL Est Cr Clr Drug Dosing TNP Estimated GFR (MDRD) 60 (>60) mL/min BUN/Creatinine Ratio 8.0 L (14-18) Glucose 88 (74-106) mg/dL Calcium 9.3 (8.5-10.1) mg/dL Total Bilirubin 0.4 (0.2-1.0) mg/dL AST 16 (15-37) U/L ALT 23 (14-59) U/L Alkaline Phosphatase 91 (46-116) U/L Total Protein 7.8 (6.4-8.2) g/dl Albumin 3.7 (3.4-5.0) g/dl Globulin 4.1 gm/dL Albumin/Globulin Ratio 0.9 L (1-2) Urine Color Yellow (Yellow) Urine Appearance Slt cloudy H (Clear) Urine pH 6.5 (5.0-8.0) Ur Specific [place] 1.010 (1.005-1.030) Urine Protein Negative (Negative) Urine Glucose (UA) Negative (Negative) Urine Ketones 2+ H (Negative) Urine Occult Blood Negative (Negative) Urine Nitrite Positive H (Negative) Urine Bilirubin Negative (Negative) Urine Urobilinogen 0.2 (0.2-1.0) Ur Leukocyte Esterase 2+ H (Negative) Urine RBC 0-5 (0-5) /hpf Urine WBC 20-30 H (0-5) /hpf Ur Squamous Epith Cells 0-5 (0-5) /hpf Urine Bacteria Moderate H (FEW) /hpf Urine Mucus Not seen (FEW) /hpf Urine Opiates Screen (EWWDFI=896) Ur Buprenorphine Scrn (CUTOFF=10) Ur Oxycodone Screen (LJB2TD=862) Urine Methadone Screen (ZJJXLP=205) Ur Propoxyphene Screen (AWIYFX=707) Ur Barbiturates Screen (KYDQEG=175) Ur Tricyclics Screen (SJXHEY=540) Ur Phencyclidine Scrn (CUTOFF=25) Ur Amphetamine Screen (QOWUAV=786) U Methamphetamines Scrn (TQYZCR=441) U Benzodiazepines Scrn (FCAQHA=076) U Cocaine Metab Screen (FOVMRF=440) U Marijuana (THC) Screen (CUTOFF=50) Ethyl Alcohol 0.00 (0.00) gm% 02/10/19 Range/Units 17:20 WBC (3.98-10.04) K/mm3 RBC (3.98-5.22) M/mm3 Hgb (11.2-15.7) gm/L Hct (34.1-44.9) % MCV (79.4-94.8) fl MCH (25.6-32.2) pg MCHC (32.2-35.5) g/dl RDW Std Deviation (36.4-46.3) fL Plt Count (182-369) K/mm3 MPV (9.4-12.3) fl Neutrophils % (Manual) (40-60) % Band Neutrophils % (0-10) % Lymphocytes % (Manual) (20-40) % Atypical Lymphs % % Monocytes % (Manual) (2-10) % Eosinophils % (Manual) (0.7-5.8) % Basophils % (Manual) (0.1-1.2) Platelet Estimate RBC Morph Comment Sodium (136-145) mEq/L Potassium (3.5-5.1) mEq/L Chloride (98-107) mEq/L Carbon Dioxide (21-32) mEq/L Anion Gap (5-15) BUN (7-18) mg/dL Creatinine (0.55-1.02) mg/dL Est Cr Clr Drug Dosing Estimated GFR (MDRD) (>60) mL/min BUN/Creatinine Ratio (14-18) Glucose (74-106) mg/dL Calcium (8.5-10.1) mg/dL Total Bilirubin (0.2-1.0) mg/dL AST (15-37) U/L ALT (14-59) U/L Alkaline Phosphatase (46-116) U/L Total Protein (6.4-8.2) g/dl Albumin (3.4-5.0) g/dl Globulin gm/dL Albumin/Globulin Ratio (1-2) Urine Color (Yellow) Urine Appearance (Clear) Urine pH (5.0-8.0) Ur Specific [place] (1.005-1.030) Urine Protein (Negative) Urine Glucose (UA) (Negative) Urine Ketones (Negative) Urine Occult Blood (Negative) Urine Nitrite (Negative) Urine Bilirubin (Negative) Urine Urobilinogen (0.2-1.0) Ur Leukocyte Esterase (Negative) Urine RBC (0-5) /hpf Urine WBC (0-5) /hpf Ur Squamous Epith Cells (0-5) /hpf Urine Bacteria (FEW) /hpf Urine Mucus (FEW) /hpf Urine Opiates Screen Negative (CXXFDK=235) Ur Buprenorphine Scrn Negative (CUTOFF=10) Ur Oxycodone Screen Negative (NDK1RX=395) Urine Methadone Screen Negative (UHWEGN=041) Ur Propoxyphene Screen Negative (NCJEUP=636) Ur Barbiturates Screen Negative (DTVPTW=551) Ur Tricyclics Screen Presumptive positive H (XUETVW=395) Ur Phencyclidine Scrn Negative (CUTOFF=25) Ur Amphetamine Screen Negative (TLJNXX=258) U Methamphetamines Scrn Negative (DBDDJE=345) U Benzodiazepines Scrn Presumptive positive H (CYCMJK=702) U Cocaine Metab Screen Negative (MLKUEZ=520) U Marijuana (THC) Screen Negative (CUTOFF=50) Ethyl Alcohol (0.00) gm% Departure - Departure Time of Disposition: 18:49 Disposition: Home, Self-Care 01 Clinical Impression: Anxiety, Urinary tract infection - Discharge Information Prescriptions: ALPRAZolam [Xanax] 1 mg PO Q8H PRN #6 tablet PRN Reason: Anxiety Nitrofurantoin Monohyd/M-Cryst [Macrobid 100 mg Capsule] 100 mg PO Q12H #14 capsule Instructions: Panic Attack, [id number] Referrals: Madison Harvey MD [Primary Care Provider] - Forms: ED Department Discharge Additional Instructions: Return to emergency room if any questions problems worsening symptoms. Follow-up with your regular provider or psychiatrist early next week. You'll also need to follow-up 3-4 days after finishing the antibiotic. - My Orders Last 24 Hours: My Active Orders 02/10/19 18:43 CULTURE URINE [RM] Stat - Assessment/Plan Last 24 Hours: My Active Orders 02/10/19 18:43 CULTURE URINE [RM] Stat
== END 2019-02-10 19:05 | disposition home or self-care (01) ==
LOC: JD.ED 15:40
DX: F41.9 Anxiety disorder, unspecified (principal); N39.0 Urinary tract infection, site not specified
CPT/HCPCS: 36415; 80053; 80306; 81001; 85007; 85027; 87086; 87088; 87186; 99284; G0480; 99283

== ENCOUNTER 2019-05-19 15:35 | Emergency (ER) | payer MEDICAID ==
[2019-05-19 15:52] VITALS: BP 110/84
--- NOTE | 2019-05-19 17:18 | CT ---
Head CT Technique: Multiple axial sections through the brain were obtained. Intravenous contrast was not utilized. Comparison: No prior intracranial imaging is available. Findings: Ventricles along with basal cisterns and sulci over the convexities are slightly prominent. No abnormal parenchymal densities are seen. No evidence of intracranial hemorrhage. No midline shift or mass effect is seen. Bone window settings were reviewed which shows nothing acute within the visualized paranasal sinuses. Visualized mastoid sinuses are clear. Impression: 1. Nothing acute is appreciated on noncontrast head CT exam. Diagnostic code #1
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
--- NOTE | 2019-05-20 08:32 | CR ---
Right ankle: Four views of the right ankle were obtained. Comparison: No prior right ankle exam. Small spur is noted at the attachment of the Achilles tendon to the calcaneus. Ankle mortise is symmetric. No acute fracture, dislocation or other bony abnormality is seen. Impression: 1. Small calcaneal spur. 2. Nothing acute is appreciated on right ankle exam. Diagnostic code #2
--- NOTE | 2019-05-20 08:32 | CR ---
Chest: Two views of the chest were obtained. Comparison: No prior chest imaging. Heart size and mediastinum are normal. Lungs are clear. Bony structures are unremarkable for the patient's age. Impression: 1. Nothing acute is appreciated on two-view chest x-ray. Diagnostic code #1
== END 2019-05-19 19:05 | disposition home or self-care (01) ==
LOC: JD.ED 15:35
DX: N39.0 Urinary tract infection, site not specified (principal); Z91.048 Other nonmedicinal substance allergy status; Z88.1 Allergy status to other antibiotic agents; Z88.6 Allergy status to analgesic agent
CPT/HCPCS: 36415; 70450; 70450-26; 71046; 71046-26; 73610-26-RT; 73610-RT; 80053; 80306; 81001; 83735; 84443; 84703; 85025; 86140; 87086; 87088; 87186; 93005; 99284-25; G0480

== ENCOUNTER 2019-06-22 16:53 | Emergency (ER) | payer MEDICAID ==
[2019-06-22 17:13] VITALS: BP 115/83; PULSE 92
--- NOTE | 2019-06-22 17:46 | EDM.PDOC ---
ED HPI GENERAL MEDICAL PROBLEM - General Chief Complaint: Skin Complaint Stated Complaint: SKIN COMPLAINT/POSS UTI Time Seen by Provider: 06/22/19 17:10 Source of Information: Reports: Patient, RN Notes Reviewed History Limitations: Reports: No Limitations - History of Present Illness INITIAL COMMENTS - FREE TEXT/NARRATIVE: Patient is a 49-year-old female who presents to the ED for the evaluation of itchiness and a possible UTI. The patient states that she has generalized itchiness all over her body, she is not having any welts or hives noted. She states that she has been treated for a UTI recently, but cannot remember the name of the medication, old records show that this possibly could have been nitrofurantoin. As she was evaluated in the ER at the end of April by Juana Chavez, and was put on a course of nitrofurantoin, this is a 1 week course. The patient states that she try to go to the walk-in clinic, but couldn't pee and a center here for possible catheterization. The patient has very tangential thoughts, and flight of ideas, and she flits from one thought process to another very quickly. The patient states that she has a history of anxiety, for which she gets Xanax from Dr. Rosa Che. Her last fill for a 30 day supply was on June 13, 2019. Patient notes she is been having to take 2 Xanax at night recently to try to go to sleep. She further notes that she is hearing songs on a loop in her head, but not hearing voices telling her to do things or seeing things that aren't there. She notes a prior history of a traumatic brain injury, and she has had a brain angiogram for this, and she states that she gets migraines at least 5 or 6 times a week. She used to go to a neurologist, but states that the medications he was giving her does not work, so she does not want to see this neurologist anymore as she does not feel he is doing anything for her. She further notes that Benadryl, prednisone and steroids, or any other and to his histamines do not work for her itching. She' s also been on hydroxyzine and this has not provided any itch relief. She states that any meds and was tried with her have not provided her much relief. She further denies any history of bipolar disorder. - Related Data Allergies Allergy/AdvReac Type Severity Reaction Status Date / Time cat dander Allergy Shortness Verified 06/22/19 17:13 of Breath dog dander Allergy Shortness Verified 06/22/19 17:13 of Breath acetaminophen [From Percocet] AdvReac Nausea and Verified 06/22/19 17:13 Vomiting aspirin [From Percodan] AdvReac Nausea and Verified 06/22/19 17:13 Vomiting oxycodone HCl [From Percocet] AdvReac Nausea and Verified 06/22/19 17:13 Vomiting oxycodone terephthalate AdvReac Nausea and Verified 06/22/19 17:13 [From Percodan] Vomiting prochlorperazine edisylate AdvReac Seizure Verified 06/22/19 17:13 [From Compazine] prochlorperazine maleate AdvReac Seizure Verified 06/22/19 17:13 [From Compazine] Home Meds: Home Meds Budesonide/Formoterol Fumarate [Symbicort 160-4.5 Mcg Inhaler] 2 puff INH ASDIRECTED 05/19/19 [History] Levofloxacin 500 mg PO DAILY #5 tablet 06/22/19 [Rx] Past Medical History HEENT History: Reports: None Other HEENT History: jaw surgery for underbite Cardiovascular History: Reports: None Respiratory History: Reports: Asthma, TB Other Respiratory History: latent TB Gastrointestinal History: Reports: None, GERD Genitourinary History: Reports: None [employer] History: Reports: Other (See Below) Other [employer] CHAIR History: states has heavy periods Musculoskeletal History: Reports: None Neurological History: Reports: Concussion, Head Trauma, Migraines, Other (See Below) Other Neuro History: states has post-concussive disorder. 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 that put her at high risk for stroke or seizure Psychiatric History: Reports: Anxiety, Bipolar, Depression Other Psychiatric History: insominia Endocrine/Metabolic History: Reports: None Hematologic History: Reports: None Immunologic History: Reports: None Oncologic (Cancer) History: Reports: None Dermatologic History: Reports: None - Infectious Disease History Infectious Disease History: Reports: Chicken Pox, TB Other Infectious Disease History: latent TB - Past Surgical History Head Surgeries/Procedures: Reports: None HEENT Surgical History: Reports: Oral Surgery, Other (See Below) Cardiovascular Surgical History: Reports: None GI Surgical History: Reports: Colonoscopy, EGD Other GI Surgeries/Procedures: biopsies with procedures. Female Surgical History: Reports: Breast Implant, D&C Endocrine Surgical History: Reports: None Musculoskeletal Surgical History: Reports: None Oncologic Surgical History: Reports: None Dermatological Surgical History: Reports: None Social & Family History - Family History Family Medical History: Noncontributory - Tobacco Use Smoking Status *Q: Never Smoker - Caffeine Use Caffeine Use: Reports: Tea Other Caffeine Use: states hasn't had in over one week. - Recreational Drug Use Recreational Drug Use: No - Living Situation & Occupation Living situation: Reports: Single, with Family (Mother) Occupation: Unemployed ED ROS GENERAL - Review of Systems Review Of Systems: See Below Constitutional: Denies: Fever, Chills HEENT: Reports: No Symptoms Respiratory: Denies: Shortness of Breath Cardiovascular: Denies: Chest Pain Endocrine: Reports: No Symptoms GI/Abdominal: Denies: Abdominal Pain, Diarrhea, Nausea, Vomiting : Reports: Dysuria, Urinary Retention (she states that she feels full, but has difficulty peeing when she is sitting on toilet.). Denies: Incontinence Musculoskeletal: Reports: No Symptoms Skin: Reports: Pruritis (generalized) Neurological: Reports: Headache (chronic migraine) Psychiatric: Reports: No Symptoms Hematologic/Lymphatic: Reports: No Symptoms Immunologic: Reports: No Symptoms ED EXAM, GENERAL - Physical Exam Exam: See Below Exam Limited By: No Limitations General Appearance: Alert, WD/WN, No Apparent Distress Eye Exam: Bilateral Eye: EOMI, Normal Inspection, PERRL Throat/Mouth: Normal Inspection, Normal Lips, Normal Teeth, Normal Gums, Normal Oropharynx, Normal Voice, No Airway Compromise Head: Atraumatic, Normocephalic Neck: Normal Inspection Respiratory/Chest: No Respiratory Distress, Lungs Clear, Normal Breath Sounds, No Accessory Muscle Use, Chest Non-Tender Cardiovascular: Normal Peripheral Pulses, Regular Rate, Rhythm, No Murmur GI/Abdominal: Normal Bowel Sounds, Soft, Non-Tender, No Distention, No Mass Back Exam: Normal Inspection, Full Range of Motion. No: CVA Tenderness (L), CVA Tenderness (R) Extremities: Normal Inspection, Normal Capillary Refill Neurological: Alert, Oriented, Normal Cognition, Normal Gait, No Motor/Sensory Deficits Psychiatric: Anxious, Other (pt has flight of ideas. She is visibly anxious in the room. She answers questions appropriately but refuses any sort of medicaitons that could work for her itching.) Skin Exam: Warm, Dry, Intact, Normal Color, No Rash Course - Vital Signs Last Recorded V/S: Last Vital Signs Temp 98.0 F 06/22/19 17:09 Pulse 92 06/22/19 17:09 Resp 18 06/22/19 17:09 BP 115/83 06/22/19 17:09 Pulse Ox 98 06/22/19 17:09 - Orders/Labs/Meds Orders: Active Orders 24 hr Category Date Time Status CULTURE URINE [RM] Routine Lab 06/22/19 18:30 Ordered Labs: Laboratory Tests 06/22/19 06/22/19 Range/Units 17:50 17:50 Urine Color Yellow (Yellow) Urine Appearance Clear (Clear) Urine pH 6.5 (5.0-8.0) Ur Specific [place] 1.015 (1.005-1.030) Urine Protein Negative (Negative) Urine Glucose (UA) Negative (Negative) Urine Ketones Negative (Negative) Urine Occult Blood Negative (Negative) Urine Nitrite Negative (Negative) Urine Bilirubin Negative (Negative) Urine Urobilinogen 0.2 (0.2-1.0) Ur Leukocyte Esterase 2+ H (Negative) Urine RBC 0-5 (0-5) /hpf Urine WBC 30-40 H (0-5) /hpf Ur Squamous Epith Cells 0-5 (0-5) /hpf Urine Bacteria Few (FEW) /hpf Urine Mucus Few (FEW) /hpf Urine Opiates Screen Negative (HSAPGQ=489) Ur Buprenorphine Scrn Negative (CUTOFF=10) Ur Oxycodone Screen Negative (SIN7FD=262) Urine Methadone Screen Negative (QKRPXV=691) Ur Propoxyphene Screen Negative (QEZBXG=020) Ur Barbiturates Screen Negative (VZFRBX=711) Ur Tricyclics Screen Negative (MQZZKX=213) Ur Phencyclidine Scrn Negative (CUTOFF=25) Ur Amphetamine Screen Negative (JULOOL=303) U Methamphetamines Scrn Negative (BFBDEO=046) U Benzodiazepines Scrn Presumptive positive H (LDGTKY=976) U Cocaine Metab Screen Negative (PSXGJI=118) U Marijuana (THC) Screen Negative (CUTOFF=50) Meds: Medications Discontinued Medications Generic Name Dose Route Start Last Admin Trade Name Freq PRN Reason Stop Dose Admin Alprazolam 1 mg 06/22/19 18:00 06/22/19 18:10 Xanax PO 06/22/19 18:01 1 mg ONETIME ONE Administration - Re-Assessments/Exams Free Text/Narrative Re-Assessment/Exam: 06/22/19 17:57 Patient presents to the ED for the evaluation of a possible UTI and multiple other complaints. I have ordered a urinalysis, and a urine drug screen, however review of her old records show that she spent positive for benzodiazepines and one time she was positive for tricyclic antidepressants. Patient is not on any sort of long-term anxiety medications, however I feel she would benefit from being on something for long-term use. I will make the suggestion to her upon anticipated discharge. Patient was requesting Demerol for her chronic migraine headaches, that is something I will not do or provide her in the ER. She is not complaining of a headache at this time rather she wanted something for prophylaxis of her headaches. She notes that Tylenol and Advil just don't do anything for her. She will have to follow up with her neurologist or primary care provider for these complaints. 06/22/19 18:24 The RN informs me that the patient didn't think she could go to the bathroom by herself, and requested a catheterized UA, the nurse perform this, and the urinalysis is positive for UTI, 2+ leukocyte esterase, and 30-40 wbc/hpf. Patient's urine drug screen was positive for only benzodiazepines. Of note since the patient did appear to be increasingly anxious I will give her a dose of her alprazolam for this ER visit. That is the only medication I'm willing to give her for her anxiety. Departure - Departure Time of Disposition: 18:26 Disposition: Home, Self-Care 01 Condition: Fair Clinical Impression: UTI (urinary tract infection) Qualifiers: Urinary tract infection type: acute cystitis Hematuria presence: without hematuria Qualified Code(s): N30.00 - Acute cystitis without hematuria - Discharge Information *PRESCRIPTION DRUG MONITORING PROGRAM REVIEWED*: Yes *COPY OF PRESCRIPTION DRUG MONITORING REPORT IN PATIENT SPENCER: No Prescriptions: Levofloxacin 500 mg PO DAILY #5 tablet Instructions: Urinary Tract Infection, Adult, [id number] Referrals: Madison Harvey MD [Primary Care Provider] - Forms: ED Department Discharge Additional Instructions: You were evaluated in the ER for a possible UTI. Your urinalysis was positive for a urinary tract infection at this time, your provided with a prescription for antibiotics, please fill these and take as directed until complete. Please try to keep your skin moisturized with non-scented or non-perfumed lotion , see if this doesn't help some of the itching is feeling she been having. You may try [id number] Pepcid or famotidine for itch relief, this has been known to help provide itch relief in some patients. You can get this at any retail pharmacy or [facility]. Recommend that you follow up with your primary care physician for a possible long-term anxiety medication. Please return to the ED if your symptoms change or worsen. - My Orders Last 24 Hours: My Active Orders 06/22/19 18:30 CULTURE URINE [RM] Routine - Assessment/Plan Last 24 Hours: My Active Orders 06/22/19 18:30 CULTURE URINE [RM] Routine
[2019-06-22] MEDS ORDERED: ALPRAZolam 1 MG Tab PO ONE (18:00)
[2019-06-22] MEDS ORDERED: Zolpidem 5 MG Tab PO ONE (18:45)
== END 2019-06-22 18:58 | disposition home or self-care (01) ==
LOC: JD.ED 16:53
DX: N30.00 Acute cystitis without hematuria (principal); J45.909 Unspecified asthma, uncomplicated; Z79.51 Long term (current) use of inhaled steroids; Z91.09 Other allergy status, other than to drugs and biological substances; Z88.6 Allergy status to analgesic agent; Z88.5 Allergy status to narcotic agent; Z88.8 Allergy status to other drugs, medicaments and biological substances
CPT/HCPCS: 80306; 81001; 87086; 99283; A9270; 87088; 87186

== ENCOUNTER 2019-07-13 19:55 | Emergency (ER) | payer MEDICAID ==
[2019-07-13 19:58] VITALS: BP 101/59; PULSE 98
[2019-07-13] MEDS ORDERED: Ondansetron 4 MG/2 ML SDV IVPUSH ONE (20:19)
[2019-07-13] MEDS ORDERED: Sodium Chloride 0.9% 1,000 ML IV ONE ×2 (20:19→22:13)
[2019-07-13] MEDS ORDERED: Sodium Chloride 0.9% 10 ML Syringe FLUSH PRN (20:19)
--- NOTE | 2019-07-13 20:26 | EDM.PDOC ---
<Luisa Ramirez Mariposa - Last Filed: 07/13/19 22:22> ED HPI GENERAL MEDICAL PROBLEM - General Chief Complaint: General Stated Complaint: [facility] Time Seen by Provider: 07/13/19 20:01 Source of Information: Reports: Patient, RN Notes Reviewed History Limitations: Reports: No Limitations - History of Present Illness INITIAL COMMENTS - FREE TEXT/NARRATIVE: Patient is a 49-year-old female who presents to the ED via [facility] for the evaluation of general malaise dizziness, and weakness. Patient states she's been sick and dizzy for the past 4 days. She states this is more of an upset stomach feeling with some upper abdominal pain. She notes this to be a dull ache. She does have some nausea, but not had any vomiting or diarrhea. She notes that she is been having some cough, fevers and chills off- and-on, and some mild shortness of breath, but no actual chest pain she perked notes a prior history of asthma. She states that she does have some mild dysuria as well, as it hurts to eat. She's been taking Advil, 400 mg, every 4 hours at home. She denies any other past medical history, she denies any cigarette use, alcohol use, or drug use, she states that while she was at home she did fall and hit her head, and she thought she may have blacked out. When asked about her dizziness, she states that this is world spinning dizziness, and is worse with changing positions. As I noted this, she was changing positions on the ER cot in this did not seem to exacerbate her dizziness. She notes that she is having a mild headache as well. Generalized Pain Score (Numeric/FACES): 4 - Related Data Allergies Allergy/AdvReac Type Severity Reaction Status Date / Time acetaminophen [From Percocet] Allergy Cannot Verified 07/13/19 19:58 Remember oxycodone [From Percocet] Allergy Cannot Verified 07/13/19 19:58 Remember prochlorperazine Allergy Cannot Verified 07/13/19 19:58 [From Compazine] Remember Home Meds: Home Meds ALPRAZolam [Xanax] 1 mg PO BEDTIME 07/13/19 [History] Past Medical History Neurological History: Reports: Migraines - Past Surgical History Female Surgical History: Reports: Breast Implant Social & Family History - Family History Family Medical History: Noncontributory - Tobacco Use Smoking Status *Q: Never Smoker - Alcohol Use Alcohol Use History: No - Recreational Drug Use Recreational Drug Use: No ED ROS GENERAL - Review of Systems Review Of Systems: See Below Constitutional: Reports: Fever, Chills, Malaise HEENT: Reports: No Symptoms Respiratory: Reports: Shortness of Breath, Cough Cardiovascular: Denies: Chest Pain Endocrine: Reports: No Symptoms GI/Abdominal: Reports: Abdominal Pain (upper abdominal discomfort), Nausea. Denies: Constipation, Diarrhea, Vomiting : Reports: No Symptoms Musculoskeletal: Reports: No Symptoms Skin: Reports: No Symptoms Neurological: Reports: No Symptoms Psychiatric: Reports: No Symptoms Hematologic/Lymphatic: Reports: No Symptoms ED EXAM, GENERAL - Physical Exam Exam: See Below Exam Limited By: Altered Mental Status (pt answers questions appropriately, but asked me where her dog was) General Appearance: Alert, WD/WN, No Apparent Distress Eye Exam: Bilateral Eye: EOMI, Normal Inspection, PERRL Throat/Mouth: Normal Inspection, Normal Lips, Normal Teeth, Normal Gums, Normal Oropharynx, Normal Voice, No Airway Compromise Head: Atraumatic, Normocephalic Neck: Normal Inspection Respiratory/Chest: No Respiratory Distress, Lungs Clear, Normal Breath Sounds, No Accessory Muscle Use, Chest Non-Tender Cardiovascular: Normal Peripheral Pulses, Regular Rate, Rhythm, No Edema, No Murmur Peripheral Pulses: 3+: Radial (L), Radial (R), Dorsalis Pedis (L), Dorsalis Pedis (R) GI/Abdominal: Normal Bowel Sounds, Soft, Non-Tender, No Distention, No Mass Extremities: Normal Inspection, Normal Capillary Refill Skin Exam: Warm, Dry, Intact, No Rash, Pallor (generalized) Course - Vital Signs Last Recorded V/S: Last Vital Signs Temp 36.6 C 07/13/19 19:56 Pulse 98 07/13/19 19:56 Resp 18 07/13/19 19:56 BP 101/59 L 07/13/19 19:56 Pulse Ox 100 07/13/19 19:56 Orthostatic Blood Pressure [ 98/71 Standing] Orthostatic Blood Pressure [ 101/62 Sitting] Orthostatic Blood Pressure [ 89/64 Supine] - Orders/Labs/Meds Orders: Active Orders 24 hr Category Date Time Status Orthostatic Vital Signs [RC] ASDIRECTED Care 07/13/19 20:19 Active Peripheral IV Care [RC] . DIRECTED Care 07/13/19 20:19 Active Chest 1V Frontal [CR] Stat Exams 07/13/19 20:16 Taken Head wo Cont [CT] Stat Exams 07/13/19 20:17 Taken CULTURE URINE [RM] Routine Lab 07/13/19 21:31 Received Sodium Chloride 0.9% [Normal Saline] 1,000 ml Med 07/13/19 22:15 Active IV ASDIRECTED Sodium Chloride 0.9% [Saline Flush] Med 07/13/19 20:19 Active 10 ml FLUSH ASDIRECTED PRN Peripheral IV Insertion Adult [OM.PC] Stat Oth 07/13/19 20:19 Ordered Medication Orders Sodium Chloride (Normal Saline) 1,000 mls @ 125 mls/hr IV ASDIRECTED SANA Last Admin: 07/13/19 22:13 Dose: 125 mls/hr Sodium Chloride (Saline Flush) 10 ml FLUSH ASDIRECTED PRN PRN Reason: Keep Vein Open Last Admin: 07/13/19 20:51 Dose: 10 ml Labs: Laboratory Tests 07/13/19 07/13/19 07/13/19 Range/Units 19:58 20:30 20:30 WBC 6.01 (3.98-10.04) K/mm3 RBC 4.28 (3.98-5.22) M/mm3 Hgb 12.7 (11.2-15.7) gm/dl Hct 38.0 (34.1-44.9) % MCV 88.8 (79.4-94.8) fl MCH 29.7 (25.6-32.2) pg MCHC 33.4 (32.2-35.5) g/dl RDW Std Deviation 40.3 (36.4-46.3) fL Plt Count 269 (182-369) K/mm3 MPV 9.3 L (9.4-12.3) fl Neutrophils % (Manual) 59 (40-60) % Band Neutrophils % 0 (0-10) % Lymphocytes % (Manual) 31 (20-40) % Atypical Lymphs % 0 % Monocytes % (Manual) 0 L (2-10) % Eosinophils % (Manual) 9 H (0.7-5.8) % Basophils % (Manual) 1 (0.1-1.2) Platelet Estimate Adequate Plt Morphology Comment Normal RBC Morph Comment Normal Sodium 141 (136-145) mEq/L Potassium 3.7 (3.5-5.1) mEq/L Chloride 110 H (98-107) mEq/L Carbon Dioxide 23 (21-32) mEq/L Anion Gap 11.7 (5-15) BUN 5 L (7-18) mg/dL Creatinine 0.9 (0.55-1.02) mg/dL Est Cr Clr Drug Dosing 77.95 mL/min Estimated GFR (MDRD) > 60 (>60) mL/min BUN/Creatinine Ratio 5.6 L (14-18) Glucose 103 (74-106) mg/dL POC Glucose 142 H (70-105) mg/dL Calcium 8.5 (8.5-10.1) mg/dL Magnesium 1.9 (1.8-2.4) mg/dl Total Bilirubin 0.2 (0.2-1.0) mg/dL AST 14 L (15-37) U/L ALT 21 (14-59) U/L Alkaline Phosphatase 69 (46-116) U/L Total Protein 6.8 (6.4-8.2) g/dl Albumin 3.0 L (3.4-5.0) g/dl Globulin 3.8 gm/dL Albumin/Globulin Ratio 0.8 L (1-2) HCG, Qual (NEGATIVE) Urine Color (Yellow) Urine Appearance (Clear) Urine pH (5.0-8.0) Ur Specific [place] (1.005-1.030) Urine Protein (Negative) Urine Glucose (UA) (Negative) Urine Ketones (Negative) Urine Occult Blood (Negative) Urine Nitrite (Negative) Urine Bilirubin (Negative) Urine Urobilinogen (0.2-1.0) Ur Leukocyte Esterase (Negative) Urine RBC (0-5) /hpf Urine WBC (0-5) /hpf Ur Squamous Epith Cells (0-5) /hpf Urine Bacteria (FEW) /hpf Urine Mucus (FEW) /hpf Urine Opiates Screen (XYCVCK=201) Ur Buprenorphine Scrn (CUTOFF=10) Ur Oxycodone Screen (QVU2BD=353) Urine Methadone Screen (INEKDA=896) Ur Propoxyphene Screen (PYMRMJ=602) Ur Barbiturates Screen (OMBXZC=582) Ur Tricyclics Screen (VYGMXK=486) Ur Phencyclidine Scrn (CUTOFF=25) Ur Amphetamine Screen (IVAZGZ=901) U Methamphetamines Scrn (UMATEQ=250) U Benzodiazepines Scrn (LZFFFJ=340) U Cocaine Metab Screen (PSBFLO=883) U Marijuana (THC) Screen (CUTOFF=50) Ethyl Alcohol (0.00) gm% 07/13/19 07/13/19 07/13/19 Range/Units 20:30 20:30 21:31 WBC (3.98-10.04) K/mm3 RBC (3.98-5.22) M/mm3 Hgb (11.2-15.7) gm/dl Hct (34.1-44.9) % MCV (79.4-94.8) fl MCH (25.6-32.2) pg MCHC (32.2-35.5) g/dl RDW Std Deviation (36.4-46.3) fL Plt Count (182-369) K/mm3 MPV (9.4-12.3) fl Neutrophils % (Manual) (40-60) % Band Neutrophils % (0-10) % Lymphocytes % (Manual) (20-40) % Atypical Lymphs % % Monocytes % (Manual) (2-10) % Eosinophils % (Manual) (0.7-5.8) % Basophils % (Manual) (0.1-1.2) Platelet Estimate Plt Morphology Comment RBC Morph Comment Sodium (136-145) mEq/L Potassium (3.5-5.1) mEq/L Chloride (98-107) mEq/L Carbon Dioxide (21-32) mEq/L Anion Gap (5-15) BUN (7-18) mg/dL Creatinine (0.55-1.02) mg/dL Est Cr Clr Drug Dosing mL/min Estimated GFR (MDRD) (>60) mL/min BUN/Creatinine Ratio (14-18) Glucose (74-106) mg/dL POC Glucose (70-105) mg/dL Calcium (8.5-10.1) mg/dL Magnesium (1.8-2.4) mg/dl Total Bilirubin (0.2-1.0) mg/dL AST (15-37) U/L ALT (14-59) U/L Alkaline Phosphatase (46-116) U/L Total Protein (6.4-8.2) g/dl Albumin (3.4-5.0) g/dl Globulin gm/dL Albumin/Globulin Ratio (1-2) HCG, Qual Negative (NEGATIVE) Urine Color Light yellow (Yellow) Urine Appearance Clear (Clear) Urine pH 6.5 (5.0-8.0) Ur Specific [place] 1.010 (1.005-1.030) Urine Protein Negative (Negative) Urine Glucose (UA) Negative (Negative) Urine Ketones Negative (Negative) Urine Occult Blood Negative (Negative) Urine Nitrite Negative (Negative) Urine Bilirubin Negative (Negative) Urine Urobilinogen 0.2 (0.2-1.0) Ur Leukocyte Esterase Trace H (Negative) Urine RBC 0-5 (0-5) /hpf Urine WBC 5-10 H (0-5) /hpf Ur Squamous Epith Cells 20-30 H (0-5) /hpf Urine Bacteria Rare (FEW) /hpf Urine Mucus Not seen (FEW) /hpf Urine Opiates Screen (GWKHCZ=550) Ur Buprenorphine Scrn (CUTOFF=10) Ur Oxycodone Screen (XXA6ZL=404) Urine Methadone Screen (UCNEQH=307) Ur Propoxyphene Screen (YESYKY=223) Ur Barbiturates Screen (IGAPDP=883) Ur Tricyclics Screen (STGUAR=550) Ur Phencyclidine Scrn (CUTOFF=25) Ur Amphetamine Screen (UCIGCD=556) U Methamphetamines Scrn (RFWDPJ=167) U Benzodiazepines Scrn (BFDSMB=843) U Cocaine Metab Screen (QGEOJJ=102) U Marijuana (THC) Screen (CUTOFF=50) Ethyl Alcohol 0.00 (0.00) gm% 07/13/19 Range/Units 21:31 WBC (3.98-10.04) K/mm3 RBC (3.98-5.22) M/mm3 Hgb (11.2-15.7) gm/dl Hct (34.1-44.9) % MCV (79.4-94.8) fl MCH (25.6-32.2) pg MCHC (32.2-35.5) g/dl RDW Std Deviation (36.4-46.3) fL Plt Count (182-369) K/mm3 MPV (9.4-12.3) fl Neutrophils % (Manual) (40-60) % Band Neutrophils % (0-10) % Lymphocytes % (Manual) (20-40) % Atypical Lymphs % % Monocytes % (Manual) (2-10) % Eosinophils % (Manual) (0.7-5.8) % Basophils % (Manual) (0.1-1.2) Platelet Estimate Plt Morphology Comment RBC Morph Comment Sodium (136-145) mEq/L Potassium (3.5-5.1) mEq/L Chloride (98-107) mEq/L Carbon Dioxide (21-32) mEq/L Anion Gap (5-15) BUN (7-18) mg/dL Creatinine (0.55-1.02) mg/dL Est Cr Clr Drug Dosing mL/min Estimated GFR (MDRD) (>60) mL/min BUN/Creatinine Ratio (14-18) Glucose (74-106) mg/dL POC Glucose (70-105) mg/dL Calcium (8.5-10.1) mg/dL Magnesium (1.8-2.4) mg/dl Total Bilirubin (0.2-1.0) mg/dL AST (15-37) U/L ALT (14-59) U/L Alkaline Phosphatase (46-116) U/L Total Protein (6.4-8.2) g/dl Albumin (3.4-5.0) g/dl Globulin gm/dL Albumin/Globulin Ratio (1-2) HCG, Qual (NEGATIVE) Urine Color (Yellow) Urine Appearance (Clear) Urine pH (5.0-8.0) Ur Specific [place] (1.005-1.030) Urine Protein (Negative) Urine Glucose (UA) (Negative) Urine Ketones (Negative) Urine Occult Blood (Negative) Urine Nitrite (Negative) Urine Bilirubin (Negative) Urine Urobilinogen (0.2-1.0) Ur Leukocyte Esterase (Negative) Urine RBC (0-5) /hpf Urine WBC (0-5) /hpf Ur Squamous Epith Cells (0-5) /hpf Urine Bacteria (FEW) /hpf Urine Mucus (FEW) /hpf Urine Opiates Screen Negative (YMDQNJ=014) Ur Buprenorphine Scrn Negative (CUTOFF=10) Ur Oxycodone Screen Negative (HCN0VO=488) Urine Methadone Screen Negative (IYRKQY=496) Ur Propoxyphene Screen Negative (VADZZB=796) Ur Barbiturates Screen Negative (RHEHUW=217) Ur Tricyclics Screen Negative (IIEJKL=612) Ur Phencyclidine Scrn Negative (CUTOFF=25) Ur Amphetamine Screen Negative (XNNWNW=072) U Methamphetamines Scrn Negative (SWOUNY=131) U Benzodiazepines Scrn Presumptive positive H (DUPUZQ=462) U Cocaine Metab Screen Negative (UGJSFP=904) U Marijuana (THC) Screen Negative (CUTOFF=50) Ethyl Alcohol (0.00) gm% Meds: Medications Generic Name Dose Route Start Last Admin Trade Name Freq PRN Reason Stop Dose Admin Sodium Chloride 1,000 mls @ 125 mls/hr 07/13/19 22:15 07/13/19 22:13 Normal Saline IV 125 mls/hr ASDIRECTED SANA Administration Sodium Chloride 10 ml 07/13/19 20:19 07/13/19 20:51 Saline Flush FLUSH 10 ml ASDIRECTED PRN Administration Keep Vein Open Discontinued Medications Generic Name Dose Route Start Last Admin Trade Name Freq PRN Reason Stop Dose Admin Famotidine 40 mg 07/14/19 04:24 07/14/19 05:05 Pepcid PO 07/14/19 04:25 40 mg ONETIME ONE Administration Sodium Chloride 1,000 mls @ 500 mls/hr 07/13/19 20:19 07/13/19 20:50 Normal Saline IV 07/13/19 22:18 500 mls/hr ONETIME ONE Administration Sodium Chloride 1,000 mls @ 125 mls/hr 07/13/19 22:13 07/13/19 22:44 Normal Saline IV 07/14/19 06:12 Not Given ONETIME ONE Ondansetron HCl 4 mg 07/13/19 20:19 07/13/19 20:50 Zofran IVPUSH 07/13/19 20:20 4 mg ONETIME ONE Administration - Re-Assessments/Exams Free Text/Narrative Re-Assessment/Exam: 07/13/19 20:28 Patient presents to the ED via ambulance service for evaluation of being so dizzy she can't stand up straight. Did order CBC, CMP, UA, urine drug screen, EtOH level, magnesium level, qualitative HCG, orthostatic vital signs, 4 mg Zofran, and some IV fluids for initial management. Quite unsure what the etiology of her symptoms may be from initial exam, she is somewhat hypotensive. She answers questions appropriately but appears mildly confused or disoriented. 10/23/19 20:37 The patient's mother is present in the room now, and states that the patient does take Xanax on a regular basis, usually 1 mg nightly, and the mother can tell when she is taking too much Xanax, and she is wondering if she didn't do that today. The patient denied taking any Xanax to her mother. She told the RN taking care of her, that she took 2 tablets of her Xanax today. 07/13/19 21:[address] is done, and demonstrates no acute intracranial abnormality, as read per [facility]. Nursing staff tells me that they didn't do the orthostatic vital signs, and she was orthostatic, I will give a bolus of IV fluid, likely that she might get a second liter. 07/13/19 22:12 Patient was sleeping at time of reassessment, mother is raising concerns of her being able to take the patient home and care for her sufficiently, as the patient lives in her basement and the mother has a bad back. I did talk with our charge nurse, and she is okay with the patient staying here overnight with some IV fluids the mother will come get her in the morning. I did relay the case to Dr. Crespo, he agrees to watch her overnight. Departure - Departure Time of Disposition: 22:22 Disposition: Home, Self-Care 01 Condition: Fair Clinical Impression: Dizziness Fall at home Qualifiers: Encounter type: initial encounter Qualified Code(s): W19.XXXA - Unspecified fall, initial encounter - Discharge Information *PRESCRIPTION DRUG MONITORING PROGRAM REVIEWED*: No *COPY OF PRESCRIPTION DRUG MONITORING REPORT IN PATIENT SPENCER: No Instructions: Dizziness, [id number] Referrals: PCP,Unknown [Ordering Only Provider] - Forms: ED Department Discharge Additional Instructions: Follow-up with your regular provider as soon as he can. Try and identify anything in your house such as laundry soaps or bedding that is new that might be causing your itching <Jayson Crespo - Last Filed: 07/14/19 06:46> Course - Re-Assessments/Exams Free Text/Narrative Re-Assessment/Exam: 07/14/19 06:32 Patient is awake and ambulatory. Her mother is on her way to get her. The patient is ambulating in the halls but hasn't a propulsive gait and looks like she has some knee instability she states this is normal for her she states she' s been having several months of itching I write an H2 beto on her and that did not seem to help. I don't want to give her Benadryl because the sedating robberies I recommended that she follow-up with her regular provider for this Dizziness and nausea have resolved. 07/14/19 06:46 Her mom did confirm this is a normal gait for her.
[2019-07-13] MEDS ORDERED: Sodium Chloride 0.9% 1,000 ML IV SCH (22:15)
[2019-07-14] MEDS ORDERED: Famotidine 20 MG Tab PO ONE (04:24)
--- NOTE | 2019-07-14 08:33 | CR ---
Chest: Portable view of the chest was obtained. Comparison: No prior chest x-ray. Heart size and mediastinum are normal. Lungs are clear. Bony structures are grossly intact. Impression: 1. Nothing acute is appreciated on portable chest x-ray. Diagnostic code #1
--- NOTE | 2019-07-14 08:33 | CT ---
Head CT Technique: Multiple axial sections through the brain were obtained. Intravenous contrast was not utilized. Comparison: No prior intracranial imaging is available. Findings: Ventricles along with basal cisterns and sulci over the convexities are within normal limits for the patient's age. No abnormal parenchymal densities are seen. No evidence of intracranial hemorrhage. No midline shift or mass effect is seen. Bone window settings were reviewed which show the visualized paranasal sinuses to appear clear. Visualized mastoid sinuses are clear. No acute calvarial abnormality is appreciated. Impression: 1. Nothing acute is identified on noncontrast head CT exam. Diagnostic code #1 I agree with preliminary report from [facility], finalized on 07/13/19, 10:23 PM Central Time
== END 2019-07-14 06:48 | disposition home or self-care (01) ==
LOC: JD.ED 19:55 → MERGE 19:55 → JD.ED 07-14 06:48
DX: R42 Dizziness and giddiness (principal); Z88.6 Allergy status to analgesic agent; Z88.5 Allergy status to narcotic agent; Z88.8 Allergy status to other drugs, medicaments and biological substances; W19.XXXA Unspecified fall, initial encounter; Y92.009 Unspecified place in unspecified non-institutional (private) residence as the place of occurrence of the external cause
CPT/HCPCS: 36415; 70450; 71045; 80053; 80306; 80320; 81001; 82962; 83735; 84703; 85007; 85027; 87086; 96361; 96374; 99285; A9270; J2405; J7040; 99283; G0480

== ENCOUNTER 2019-07-20 16:12 | Emergency (ER) | payer MEDICAID ==
[2019-07-20 16:18] VITALS: BP 129/82; PULSE 115
--- NOTE | 2019-07-20 17:41 | EDM.PDOC ---
ED HPI GENERAL MEDICAL PROBLEM - General Chief Complaint: Behavioral/Psych Stated Complaint: [facility] Time Seen by Provider: 07/20/19 17:21 Source of Information: Reports: Patient, RN Notes Reviewed History Limitations: Reports: Intoxication (sleepy d/t taking too much ambien) - History of Present Illness INITIAL COMMENTS - FREE TEXT/NARRATIVE: Patient is a 49-year-old female who presents to the ED via [facility] for evaluation of taking too many Ambien. The patient's mother called the ambulance service, because she thought that her daughter took too much of her Ambien. Patient states she only took 2 tablets, but nobody able to find the bottle, and she relates that the bottle was stolen. The patient states that she also took 1 Lyrica 100 mg tablet as well. She notes this was not an attempt to end her life at all. Upon initial presentation, patient is very sleepy, she is acting intoxicated, rambling, and cannot keep her eyes open all the way. She notes that she took the Ambien because she hadn't slept in like 5 days and just wanted to sleep. She states that her " brain feels like concrete ". - Related Data Allergies Allergy/AdvReac Type Severity Reaction Status Date / Time cat dander Allergy Shortness Verified 07/20/19 16:18 of Breath dog dander Allergy Shortness Verified 07/20/19 16:18 of Breath oxycodone [From Percocet] Allergy Cannot Verified 07/20/19 16:18 Remember prochlorperazine Allergy Cannot Verified 07/20/19 16:18 [From Compazine] Remember acetaminophen [From Percocet] AdvReac Nausea and Verified 07/20/19 16:18 Vomiting aspirin [From Percodan] AdvReac Nausea and Verified 07/20/19 16:18 Vomiting oxycodone HCl [From Percocet] AdvReac Nausea and Verified 07/20/19 16:18 Vomiting oxycodone terephthalate AdvReac Nausea and Verified 07/20/19 16:18 [From Percodan] Vomiting prochlorperazine edisylate AdvReac Seizure Verified 07/20/19 16:18 [From Compazine] prochlorperazine maleate AdvReac Seizure Verified 07/20/19 16:18 [From Compazine] Home Meds: Home Meds Budesonide/Formoterol Fumarate [Symbicort 160-4.5 Mcg Inhaler] 2 puff INH ASDIRECTED 05/19/19 [History] ALPRAZolam [Xanax] 1 mg PO TID 07/13/19 [History] Pregabalin [Lyrica] 100 mg PO BID 07/20/19 [History] Zolpidem Tartrate [Ambien] 10 mg PO BEDTIME 07/20/19 [History] Past Medical History HEENT History: Reports: None Other HEENT History: jaw surgery for underbite Cardiovascular History: Reports: None Respiratory History: Reports: Asthma, TB Other Respiratory History: latent TB Gastrointestinal History: Reports: GERD, None Genitourinary History: Reports: None MATE SHIP History: Reports: Other (See Below) Other MATE SHIP History: states has heavy periods Musculoskeletal History: Reports: None Neurological History: Reports: Concussion, Head Trauma, Migraines, Other (See Below) Other Neuro History: states has post-concussive disorder. 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 that put her at high risk for stroke or seizure Psychiatric History: Reports: Anxiety, Bipolar, Depression Other Psychiatric History: insominia Endocrine/Metabolic History: Reports: None Hematologic History: Reports: None Immunologic History: Reports: None Oncologic (Cancer) History: Reports: None Dermatologic History: Reports: None - Infectious Disease History Infectious Disease History: Reports: Chicken Pox, TB Other Infectious Disease History: latent TB - Past Surgical History Head Surgeries/Procedures: Reports: None HEENT Surgical History: Reports: Other (See Below), Oral Surgery Cardiovascular Surgical History: Reports: None Female Surgical History: Reports: Breast Implant, D&C Endocrine Surgical History: Reports: None Musculoskeletal Surgical History: Reports: None Oncologic Surgical History: Reports: None Dermatological Surgical History: Reports: None Social & Family History - Family History Family Medical History: Noncontributory - Tobacco Use Smoking Status *Q: Never Smoker - Caffeine Use Caffeine Use: Reports: Coffee Other Caffeine Use: states hasn't had in over one week. - Recreational Drug Use Recreational Drug Use: Yes Drug Use in Last 12 Months: No Recreational Drug Type: Reports: Marijuana/Hashish Recreational Drug Use Frequency: Not Used In Over 6 Months - Living Situation & Occupation Living situation: Reports: with Family, Single Occupation: Unemployed ED ROS GENERAL - Review of Systems Review Of Systems: See Below Constitutional: Reports: Fatigue (d/t taking too much ambien). Denies: Fever, Chills HEENT: Reports: No Symptoms Respiratory: Reports: No Symptoms Cardiovascular: Reports: No Symptoms Endocrine: Reports: No Symptoms GI/Abdominal: Reports: No Symptoms : Reports: No Symptoms Musculoskeletal: Reports: No Symptoms Skin: Reports: No Symptoms Neurological: Reports: No Symptoms Psychiatric: Reports: No Symptoms Hematologic/Lymphatic: Reports: No Symptoms Immunologic: Reports: No Symptoms ED EXAM, GENERAL - Physical Exam Exam: See Below Exam Limited By: Intoxication (pt took too much Ambien, and is very somnelent.) General Appearance: Alert (when awakened, answers quesitons appropriately), WD/ WN, No Apparent Distress (pt is sleeping on ED cot soundly.) Eye Exam: Bilateral Eye: EOMI, Normal Inspection, PERRL Respiratory/Chest: No Respiratory Distress, Lungs Clear, Normal Breath Sounds, No Accessory Muscle Use, Chest Non-Tender Cardiovascular: Normal Peripheral Pulses, Regular Rate, Rhythm, No Murmur Peripheral Pulses: 3+: Radial (L), Radial (R) GI/Abdominal: Normal Bowel Sounds, Soft, Non-Tender, No Distention, No Mass Extremities: Normal Inspection, Normal Capillary Refill Neurological: Alert (when aroused), No Motor/Sensory Deficits Psychiatric: Other (sleepy d/t taking too much Ambien) Skin Exam: Warm, Dry, Intact, Normal Color, No Rash Course - Vital Signs Last Recorded V/S: Last Vital Signs Temp 98.6 F 07/20/19 16:13 Pulse 115 H 07/20/19 16:13 Resp 16 07/20/19 16:13 BP 129/82 07/20/19 16:13 Pulse Ox 99 07/20/19 16:13 - Re-Assessments/Exams Free Text/Narrative Re-Assessment/Exam: 07/20/19 17:40 At this time patient took this Ambien around one and a half hours ago. Poison control was called on the case, and they state that the Ambien should really just make her sleepy, and that there are really no other concerns to be worried about today. The mother did call back, and states that she found the pill bottle and it looks as if the patient maybe took 6-10 mg tablets of Ambien, which would be a total of 60 mg Ambien. This would probably be why the patient is so sleepy, she does answer questions when aroused or asked, she just falls right back asleep. At this point in time there is no medical reason to keep her in the ER, as she has been hemodynamically stable, her O2 sats are within normal limits on room air she's been sleeping. I do not believe this was an attempt to end her life at all. Patient will be discharged home and general recommendations. Departure - Departure Time of Disposition: 17:41 Disposition: Home, Self-Care 01 Condition: Fair Clinical Impression: Accidental overdose Qualifiers: Encounter type: initial encounter Qualified Code(s): T50.901A - Poisoning by unspecified drugs, medicaments and biological substances, accidental ( unintentional), initial encounter - Discharge Information *PRESCRIPTION DRUG MONITORING PROGRAM REVIEWED*: No *COPY OF PRESCRIPTION DRUG MONITORING REPORT IN PATIENT SPENCER: No Instructions: Drug Overdose Referrals: PCP,Unknown [Primary Care Provider] - Forms: ED Department Discharge Additional Instructions: You were evaluated in the ER today regarding your accidental overdose of Ambien. The only worrisome side effect of Ambien, is sleep. You will likely sleep pretty hard for the next few hours. Hopefully you should be back to normal by tomorrow. Poison control was consulted on your case, and they also confirmed that you should just feel sleepy from the Ambien, and there should be no other worrisome side effects. Recommend that you take only the prescribed dose of Ambien as needed for sleep, and do not take more than one tablet at a time. Please return to the ED if your symptoms should change or worsen.
== END 2019-07-20 22:15 | disposition home or self-care (01) ==
LOC: JD.ED 16:12
DX: T42.6X1A Poisoning by other antiepileptic and sedative-hypnotic drugs, accidental (unintentional), initial encounter (principal); F41.9 Anxiety disorder, unspecified; F32.9 Major depressive disorder, single episode, unspecified; Z91.048 Other nonmedicinal substance allergy status; Z88.6 Allergy status to analgesic agent; Z88.8 Allergy status to other drugs, medicaments and biological substances; Z79.899 Other long term (current) drug therapy
CPT/HCPCS: 99283; 99284

== ENCOUNTER 2019-09-13 19:48 | Emergency (ER) | payer MEDICAID ==
[2019-09-13 20:03] VITALS: BP 111/74; PULSE 99
[2019-09-13] MEDS ORDERED: LORazepam 1 MG Tab PO ONE (21:33)
--- NOTE | 2019-09-13 21:40 | EDM.PDOC ---
ED HPI GENERAL MEDICAL PROBLEM - General Chief Complaint: Cardiovascular Problem Stated Complaint: SOB Time Seen by Provider: 09/13/19 20:54 Source of Information: Reports: Patient, Family (Mother) History Limitations: Reports: No Limitations - History of Present Illness INITIAL COMMENTS - FREE TEXT/NARRATIVE: Ms. Raymundo is a pleasant 49-year-old woman with a past medical history significant for severe, uncontrolled anxiety, and depression. The chart indicates that she has a history of bipolar affective disorder, although the patient denies it. At present, her anxiety is treated with 2 tablets of alprazolam at bedtime, prescribed by her PCP, and nothing else. Her depression is untreated. She states that she stopped seeing her Psychiatrist about one year ago, because she did not like her. She states that she has a history of asthma, although she has never undergone pulmonary function tests to confirm it. The patient developed headaches following a head injury. An MRI of the brain suggested possible enlarged cerebral vessels, however, a subsequent cerebral angiogram was normal. The patient does not have cerebral aneurysms, however, her anxiety disorder prevents her from cognitively recognizing that, therefore she persists in stating that she does, even though she is aware that the cerebral angiogram was negative. She states that she was evaluated by a Neurologist, whom she also did not like, and the patient acknowledges that she was not diagnosed with migraines, which she also reports she has. The patient now presents to the ED, accompanied by her mother, stating that her lungs "go still" for the past 3-4 days. She is unable to elaborate what she means by that but states that she has been feeling short of breath. No recent cough. She states that she has been wheezing, although acknowledges that she is not wheezing now. Because of her dyspnea, she has been taking her mother's albuterol by nebulizer. She states that her "heart hurts" on and off for the past 2 weeks, and she puts her right hand over her left breast. When the pain is present, it is only there for a few minutes. The patient also states "My mind is completely blank" for the past 2 days. She states that she has no thoughts in her head. No recent fever, nausea, vomiting, constipation, diarrhea , or urinary symptoms. The patient's PCP is Rosa Che NP. Her Psychiatrist is Dr. Lucrecia Ly. Her Neurologist is Dr. Vasiliy Christie. Her Neurosurgeon is Dr. Pro Hernandez, at [facility]. Chest Pain Score (Numeric/FACES): 9 - Related Data Allergies Allergy/AdvReac Type Severity Reaction Status Date / Time cat dander Allergy Shortness Verified 08/11/19 14:49 of Breath dog dander Allergy Shortness Verified 08/11/19 14:49 of Breath oxycodone [From Percocet] Allergy Cannot Verified 08/11/19 14:49 Remember prochlorperazine Allergy Cannot Verified 08/11/19 14:49 [From Compazine] Remember acetaminophen [From Percocet] AdvReac Nausea and Verified 08/11/19 14:49 Vomiting aspirin [From Percodan] AdvReac Nausea and Verified 08/11/19 14:49 Vomiting oxycodone HCl [From Percocet] AdvReac Nausea and Verified 08/11/19 14:49 Vomiting oxycodone terephthalate AdvReac Nausea and Verified 08/11/19 14:49 [From Percodan] Vomiting prochlorperazine edisylate AdvReac Seizure Verified 08/11/19 14:49 [From Compazine] prochlorperazine maleate AdvReac Seizure Verified 08/11/19 14:49 [From Compazine] Home Meds: Home Meds Budesonide/Formoterol Fumarate [Symbicort 160-4.5 Mcg Inhaler] 2 puff INH ASDIRECTED PRN 05/19/19 [History] ALPRAZolam [Xanax] 1 mg PO TID 07/13/19 [History] Zolpidem Tartrate [Ambien] 10 mg PO BEDTIME 07/20/19 [History] Past Medical History Respiratory History: Reports: Asthma (suspected, not tested), TB [employer] History: Reports: Other (See Below) (IUD) Psychiatric History: Reports: Anxiety, Depression - Infectious Disease History Infectious Disease History: Reports: Chicken Pox, TB (latent) - Past Surgical History HEENT Surgical History: Reports: Oral Surgery (wisdom teeth extraction, dental implants), Other (See Below) (Mandible surgery to correct an underbite) GI Surgical History: Reports: Colonoscopy (x 2), EGD (x 2) Female Surgical History: Reports: Breast Implant, D&C (x 3) Social & Family History - Family History Family Medical History: Noncontributory - Tobacco Use Smoking Status *Q: Never Smoker - Caffeine Use Caffeine Use: Reports: Tea Other Caffeine Use: states hasn't had in over one week. - Alcohol Use Alcohol Use History: Yes Alcohol Use Frequency: Rarely - Recreational Drug Use Recreational Drug Use: No - Living Situation & Occupation Living situation: Reports: with Family, Single Occupation: Unemployed ED ROS GENERAL - Review of Systems Review Of Systems: Comprehensive ROS is negative, except as noted in HPI. ED EXAM, GENERAL - Physical Exam Exam: See Below Exam Limited By: No Limitations General Appearance: Alert, WD/WN, Anxious Eye Exam: Bilateral Eye: EOMI, Normal Inspection Ears: Normal External Exam, Hearing Grossly Normal Nose: Normal Inspection Throat/Mouth: Normal Inspection, Normal Lips, Normal Voice, No Airway Compromise Head: Atraumatic, Normocephalic Neck: Normal Inspection, Full Range of Motion Respiratory/Chest: No Respiratory Distress, Lungs Clear, Normal Breath Sounds, No Accessory Muscle Use. No: Decreased Breath Sounds, Crackles, Rhonchi, Wheezing, Stridor, Prolonged Expiration Cardiovascular: Normal Peripheral Pulses, Regular Rate, Rhythm, No Edema, No Gallop, No JVD, No Murmur, No Rub Peripheral Pulses: 4+: Radial (L), Radial (R) GI/Abdominal: Normal Bowel Sounds, Soft, Non-Tender, No Organomegaly, No Distention, No Abnormal Bruit, No Mass (Female) Exam: Deferred Rectal (Female) Exam: Deferred Back Exam: Normal Inspection, Full Range of Motion, NT Extremities: Normal Inspection, Normal Range of Motion, No Pedal Edema, Normal Capillary Refill Neurological: Alert, Oriented, No Motor/Sensory Deficits Psychiatric: Anxious Skin Exam: Warm, Dry, Intact, Normal Color, No Rash EKG INTERPRETATION EKG Date: 09/13/19 Time: 20:45 Rhythm: NSR Rate (Beats/Min): 92 [place]: Normal P-Wave: Present QRS: Normal ST-T: Normal QT: Normal Comparison: No Change (05/19/2019) Course - Vital Signs Last Recorded V/S: Last Vital Signs Temp 36.7 C 09/13/19 20:01 Pulse 99 09/13/19 20:01 Resp 20 09/13/19 20:01 BP 111/74 12/24/19 20:01 Pulse Ox 100 09/13/19 20:01 - Orders/Labs/Meds Orders: Active Orders 24 hr Category Date Time Status EKG 12 Lead [EKG Documentation Completion] [RC] STAT Care 09/13/19 20:37 Active Labs: Laboratory Tests 09/13/19 09/13/19 Range/Units 20:42 20:42 WBC 4.58 (3.98-10.04) K/mm3 RBC 4.73 (3.98-5.22) M/mm3 Hgb 14.3 D (11.2-15.7) gm/dl Hct 42.7 (34.1-44.9) % MCV 90.3 (79.4-94.8) fl MCH 30.2 (25.6-32.2) pg MCHC 33.5 (32.2-35.5) g/dl RDW Std Deviation 43.6 (36.4-46.3) fL Plt Count 308 (182-369) K/mm3 MPV 9.0 L (9.4-12.3) fl Neut % (Auto) 55.0 (34.0-71.1) % Lymph % (Auto) 29.7 (19.3-51.7) % [place] % (Auto) 11.8 (4.7-12.5) % Eos % (Auto) 2.2 (0.7-5.8) Baso % (Auto) 1.1 (0.1-1.2) % Neut # (Auto) 2.52 (1.56-6.13) K/mm3 Lymph # (Auto) 1.36 (1.18-3.74) K/mm3 [place] # (Auto) 0.54 H (0.24-0.36) K/mm3 Eos # (Auto) 0.10 (0.04-0.36) K/mm3 Baso # (Auto) 0.05 (0.01-0.08) K/mm3 Sodium 142 (136-145) mEq/L Potassium 4.1 (3.5-5.1) mEq/L Chloride 106 (98-107) mEq/L Carbon Dioxide 27 (21-32) mEq/L Anion Gap 13.1 (5-15) BUN 9 (7-18) mg/dL Creatinine 0.9 (0.55-1.02) mg/dL Est Cr Clr Drug Dosing 77.95 mL/min Estimated GFR (MDRD) > 60 (>60) mL/min BUN/Creatinine Ratio 10.0 L (14-18) Glucose 100 (74-106) mg/dL Calcium 9.0 (8.5-10.1) mg/dL Total Bilirubin 0.2 (0.2-1.0) mg/dL AST 15 (15-37) U/L ALT 24 (14-59) U/L Alkaline Phosphatase 79 (46-116) U/L Troponin I < 0.017 (0.00-0.056) ng/mL Total Protein 7.7 (6.4-8.2) g/dl Albumin 3.4 (3.4-5.0) g/dl Globulin 4.3 gm/dL Albumin/Globulin Ratio 0.8 L (1-2) Meds: Medications Discontinued Medications Generic Name Dose Route Start Last Admin Trade Name Freq PRN Reason Stop Dose Admin Lorazepam 1 mg 09/13/19 21:33 09/13/19 21:50 Ativan PO 09/13/19 21:34 1 mg ONETIME ONE Administration - Re-Assessments/Exams Free Text/Narrative Re-Assessment/Exam: 09/13/19 21:33 A CBC, CMP, troponin, and ECG were ordered by the triage nurse. All are unremarkable. The patient, her mother, and I spoke at length. Very clearly, the patient is suffering from untreated anxiety. I offered to perform an evaluation to confirm hyperventilation syndrome, but the patient declined, acknowledging that she is suffering from anxiety. For today's purposes, the patient will be given 1 mg of oral Ativan, then I would like her to follow-up with Dr. Harvey for a thorough evaluation, including discussing treatment options for anxiety. I explained to the patient that she needs to realize that there are no quick fixes for anxiety , that it often takes weeks or even months before she will have significant relief. At present, the patient appears to understand, however, we will see how long that lasts. The patient's mother seems to understand the situation very well, but we will have to see if she can keep her daughter focused. Departure - Departure Time of Disposition: 21:36 Disposition: Home, Self-Care 01 Condition: Good Clinical Impression: Hyperventilation syndrome, Anxiety - Discharge Information *PRESCRIPTION DRUG MONITORING PROGRAM REVIEWED*: Not Applicable *COPY OF PRESCRIPTION DRUG MONITORING REPORT IN PATIENT SPENCER: Not Applicable Instructions: Panic Attack Referrals: Vasiliy Christie MD [Ordering Only Provider] - Lucrecia Ly MD [Ordering Only Provider] - Pro Hernandez MD [Ordering Only Provider] - Madison Harvey MD [Physician] - Forms: ED Department Discharge Additional Instructions: You were seen in the emergency room for shortness of breath, left-sided chest pain, and difficulty thinking. Workup in the ER included blood work and an ECG, all of which were completely normal. Further workup to confirm hyperventilation syndrome was offered, but declined. Based on your history, physical exam, and ER test, you are most likely suffering from severe anxiety. As discussed, there are no quick fixes for anxiety. You have been given a dose of Ativan tonight, to help calm your nurse. We recommend that you follow-up with Dr. Madison Harvey in the clinic, at the next available appointment, to establish her as a PCP and to discuss treatment options for anxiety. If any other problems, please do not hesitate to return to the ER. Sepsis Event Note - Evaluation Sepsis Screening Result: No Definite Risk - Focused Exam Date Exam was Performed: 09/14/19 Time Exam was Performed: 16:54 - My Orders Last 24 Hours: My Active Orders 09/13/19 20:37 EKG 12 Lead [EKG Documentation Completion] [RC] STAT - Assessment/Plan Last 24 Hours: My Active Orders 09/13/19 20:37 EKG 12 Lead [EKG Documentation Completion] [RC] STAT
== END 2019-09-13 21:50 | disposition home or self-care (01) ==
LOC: JD.ED 19:48
DX: F45.8 Other somatoform disorders (principal); F41.9 Anxiety disorder, unspecified; J45.909 Unspecified asthma, uncomplicated; F32.9 Major depressive disorder, single episode, unspecified; Z91.048 Other nonmedicinal substance allergy status; Z88.5 Allergy status to narcotic agent; Z88.8 Allergy status to other drugs, medicaments and biological substances; Z88.6 Allergy status to analgesic agent; Z79.899 Other long term (current) drug therapy
CPT/HCPCS: 36415; 80053; 84484; 85025; 93005; 99285; A9270; 93010; 99283

== ENCOUNTER 2019-09-15 03:13 | Emergency (ER) | payer MEDICAID ==
[2019-09-15 03:32] VITALS: BP 113/81; PULSE 93
--- NOTE | 2019-09-15 04:05 | EDM.PDOC ---
ED HPI GENERAL MEDICAL PROBLEM - General Chief Complaint: Respiratory Problem Stated Complaint: CHEST PAIN SOB WEAK Time Seen by Provider: 09/15/19 03:24 Source of Information: Reports: Patient History Limitations: Reports: No Limitations - History of Present Illness INITIAL COMMENTS - FREE TEXT/NARRATIVE: Ms. Raymundo is a pleasant 49-year-old woman with a past medical history significant for severe, uncontrolled anxiety, and depression. Earlier charts indicate that she has a history of bipolar affective disorder, as well, although the patient denies it. At present, her anxiety is treated with 2 tablets of alprazolam at bedtime, prescribed by her PCP, and nothing else. Her depression is untreated. The patient was seen by me in this ED a little over 24 hours ago, on Thursday evening, 09/13/2019. Please see my note from that time for more detail. In short , she complained at that time that her lungs "go still" for 3-4 days prior, causing her to have shortness of breath and possible wheezing, but no cough. She had been using her mother's albuterol nebulizer. She also reported that her "heart hurt" intermittently for the past 2 weeks, she put her right hand over her left breast. She also reported "my mind is completely blank" for 2 days. She reported that she had no thoughts in her head. No recent illness. On evaluation, her oxygen saturations found to be 100% on room air. Workup included a CBC, a CMP, a troponin, and an ECG, all of which were unremarkable. It was very clear that patient was suffering from severe anxiety. An exhaustive workup to rule out other causes of hyperventilation is offered but declined. The patient was given 1 mg of oral Ativan, and she was discharged home with recommendation that she follow-up with Dr. Harvey in our clinic to undergo a thorough evaluation and to discuss treatment options for anxiety. It was impressed upon the patient that there were no quick fixes for anxiety, and that it might take weeks or even months for her to develop significant relief. The patient appeared to understand, however, I did not have high confidence that she would be able to stay that way. The patient now returns to the ED. She is alone this time - she did not bring her mother. She states that her lungs are "still" causing her to be short of breath, that her mind is blank, and that she falls a lot because her lower extremities are weak. I asked her if she recalled what we had discussed the night before, and she stated that she did not. I asked her if she had read my discharge instructions explaining what she needed to do and what she should expect, and she admitted that she had not, that my discharge instructions were currently between the seats in her car. The patient's PCP is Rosa Che NP. Her Psychiatrist is Dr. Lucrecia Ly. Her Neurologist is Dr. Vasiliy Christie. Her Neurosurgeon is Dr. Pro Hernandez, at [facility]. Middle Chest Pain Score (Numeric/FACES): 8 - Related Data Allergies Allergy/AdvReac Type Severity Reaction Status Date / Time cat dander Allergy Shortness Verified 08/11/19 14:49 of Breath dog dander Allergy Shortness Verified 08/11/19 14:49 of Breath oxycodone [From Percocet] Allergy Cannot Verified 08/11/19 14:49 Remember prochlorperazine Allergy Cannot Verified 08/11/19 14:49 [From Compazine] Remember acetaminophen [From Percocet] AdvReac Nausea and Verified 08/11/19 14:49 Vomiting aspirin [From Percodan] AdvReac Nausea and Verified 08/11/19 14:49 Vomiting oxycodone HCl [From Percocet] AdvReac Nausea and Verified 08/11/19 14:49 Vomiting oxycodone terephthalate AdvReac Nausea and Verified 08/11/19 14:49 [From Percodan] Vomiting prochlorperazine edisylate AdvReac Seizure Verified 08/11/19 14:49 [From Compazine] prochlorperazine maleate AdvReac Seizure Verified 08/11/19 14:49 [From Compazine] Home Meds: Home Meds Budesonide/Formoterol Fumarate [Symbicort 160-4.5 Mcg Inhaler] 2 puff INH ASDIRECTED PRN 05/19/19 [History] ALPRAZolam [Xanax] 1 mg PO TID 07/13/19 [History] Zolpidem Tartrate [Ambien] 10 mg PO BEDTIME 07/20/19 [History] Past Medical History Respiratory History: Reports: Asthma (suspected, not tested), TB Gastrointestinal History: Reports: GERD [employer] 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 History: Reports: Other (See Below) (IUD) Psychiatric History: Reports: Anxiety (inadequately treated), Bipolar (untreated ), Depression (untreated), Other (See Below) (Insomnia) - Infectious Disease History Infectious Disease History: Reports: Chicken Pox, TB (latent) - Past Surgical History HEENT Surgical History: Reports: Oral Surgery (wisdom teeth extraction, dental implants), Other (See Below) (Mandible surgery to correct an underbite) GI Surgical History: Reports: Colonoscopy (x 2), EGD (x 2) Female Surgical History: Reports: Breast Implant, D&C (x 3) Social & Family History - Family History Family Medical History: Noncontributory - Tobacco Use Smoking Status *Q: Never Smoker - Alcohol Use Alcohol Use History: Yes Alcohol Use Frequency: Rarely - Recreational Drug Use Recreational Drug Use: No - Living Situation & Occupation Living situation: Reports: with Family, Single Occupation: Unemployed ED ROS GENERAL - Review of Systems Review Of Systems: Comprehensive ROS is negative, except as noted in HPI. ED EXAM, GENERAL - Physical Exam Exam: See Below Exam Limited By: No Limitations General Appearance: Alert, WD/WN, No Apparent Distress, Anxious Eye Exam: Bilateral Eye: EOMI, Normal Inspection, PERRL Ears: Normal External Exam, Hearing Grossly Normal Nose: Normal Inspection Throat/Mouth: Normal Inspection, Normal Lips, Normal Voice, No Airway Compromise Head: Atraumatic, Normocephalic Neck: Normal Inspection, Full Range of Motion Respiratory/Chest: No Respiratory Distress, Lungs Clear, Normal Breath Sounds, No Accessory Muscle Use. No: Decreased Breath Sounds, Crackles, Rhonchi, Wheezing, Stridor, Prolonged Expiration Cardiovascular: Normal Peripheral Pulses, Regular Rate, Rhythm, No Edema, No Gallop, No JVD, No Murmur, No Rub Peripheral Pulses: 4+: Radial (L), Radial (R) GI/Abdominal: Normal Bowel Sounds, Soft, Non-Tender, No Organomegaly, No Distention, No Abnormal Bruit, No Mass (Female) Exam: Deferred Rectal (Female) Exam: Deferred Back Exam: Normal Inspection, Full Range of Motion, NT Extremities: Normal Inspection, Normal Range of Motion, No Pedal Edema, Normal Capillary Refill Neurological: Alert, Oriented, CN II-XII Intact, No Motor/Sensory Deficits Psychiatric: Anxious Skin Exam: Warm, Dry, Intact, Normal Color, No Rash EKG INTERPRETATION EKG Date: 09/15/19 Time: 04:21 Rhythm: NSR Rate (Beats/Min): 85 [employer]: Normal P-Wave: Present QRS: Normal ST-T: Normal QT: Normal Comparison: No Change (05/19/2019) Course - Vital Signs Last Recorded V/S: Last Vital Signs Temp 36.8 C 09/15/19 03:25 Pulse 93 09/15/19 03:25 Resp 18 09/15/19 03:25 BP 113/81 09/15/19 03:25 Pulse Ox 98 09/15/19 03:25 Orthostatic Blood Pressure [ 111/79 Standing] Orthostatic Blood Pressure [ 115/84 Sitting] Orthostatic Blood Pressure [ 107/67 Supine] - Orders/Labs/Meds Orders: Active Orders 24 hr Category Date Time Status EKG Documentation Completion [RC] STAT Care 09/15/19 03:59 Active Orthostatic Vital Signs [RC] STAT Care 09/15/19 03:59 Active Labs: Laboratory Tests 09/15/19 09/15/19 09/15/19 Range/Units 04:15 04:15 04:15 WBC 6.21 (3.98-10.04) K/mm3 RBC 4.53 (3.98-5.22) M/mm3 Hgb 13.8 (11.2-15.7) gm/dl Hct 40.8 (34.1-44.9) % MCV 90.1 (79.4-94.8) fl MCH 30.5 (25.6-32.2) pg MCHC 33.8 (32.2-35.5) g/dl RDW Std Deviation 43.2 (36.4-46.3) fL Plt Count 304 (182-369) K/mm3 MPV 9.0 L (9.4-12.3) fl Neutrophils % (Manual) 47 (40-60) % Band Neutrophils % 2 (0-10) % Lymphocytes % (Manual) 31 (20-40) % Atypical Lymphs % 0 % Monocytes % (Manual) 12 H (2-10) % Eosinophils % (Manual) 3 (0.7-5.8) % Basophils % (Manual) 5 H (0.1-1.2) Platelet Estimate Adequate Plt Morphology Comment See note RBC Morph Comment Normal D-Dimer, Quantitative 0.63 H (0.19-0.50) mg/L Puncture Site ABG pH (7.35-7.45) ABG pCO2 (35.0-45.0) mmHg ABG pO2 (80.0-100.0) mmHg ABG HCO3 (22.0-26.0) meq/L ABG O2 Saturation (96.0-97.0) % ABG Base Excess (-2-2.0) A-a Gradient mmHg O2 Delivery Device FiO2 (21.00-100.00) % Sodium 141 (136-145) mEq/L Potassium 4.1 (3.5-5.1) mEq/L Chloride 106 (98-107) mEq/L Carbon Dioxide 24 (21-32) mEq/L Anion Gap 15.1 H (5-15) BUN 6 L (7-18) mg/dL Creatinine 0.8 (0.55-1.02) mg/dL Est Cr Clr Drug Dosing 3.42 mL/min Estimated GFR (MDRD) > 60 (>60) mL/min BUN/Creatinine Ratio 7.5 L (14-18) Glucose 97 (74-106) mg/dL Calcium 8.6 (8.5-10.1) mg/dL Magnesium 2.2 (1.8-2.4) mg/dl Total Bilirubin 0.2 (0.2-1.0) mg/dL AST 18 (15-37) U/L ALT 21 (14-59) U/L Alkaline Phosphatase 78 (46-116) U/L Troponin I < 0.017 (0.00-0.056) ng/mL NT-Pro-B Natriuret Pep (0-125) pg/mL Total Protein 7.4 (6.4-8.2) g/dl Albumin 3.2 L (3.4-5.0) g/dl Globulin 4.2 gm/dL Albumin/Globulin Ratio 0.8 L (1-2) TSH 3rd Generation 1.781 (0.358-3.74) uIU/mL Urine Color (Yellow) Urine Appearance (Clear) Urine pH (5.0-8.0) Ur Specific [place] (1.005-1.030) Urine Protein (Negative) Urine Glucose (UA) (Negative) Urine Ketones (Negative) Urine Occult Blood (Negative) Urine Nitrite (Negative) Urine Bilirubin (Negative) Urine Urobilinogen (0.2-1.0) Ur Leukocyte Esterase (Negative) Urine RBC (0-5) /hpf Urine WBC (0-5) /hpf Ur Squamous Epith Cells (0-5) /hpf Amorphous Sediment (NOT SEEN) /hpf Urine Bacteria (FEW) /hpf Urine Mucus (FEW) /hpf Urine HCG, Qual (NEGATIVE) 09/15/19 09/15/19 09/15/19 Range/Units 04:15 04:25 05:03 WBC (3.98-10.04) K/mm3 RBC (3.98-5.22) M/mm3 Hgb (11.2-15.7) gm/dl Hct (34.1-44.9) % MCV (79.4-94.8) fl MCH (25.6-32.2) pg MCHC (32.2-35.5) g/dl RDW Std Deviation (36.4-46.3) fL Plt Count (182-369) K/mm3 MPV (9.4-12.3) fl Neutrophils % (Manual) (40-60) % Band Neutrophils % (0-10) % Lymphocytes % (Manual) (20-40) % Atypical Lymphs % % Monocytes % (Manual) (2-10) % Eosinophils % (Manual) (0.7-5.8) % Basophils % (Manual) (0.1-1.2) Platelet Estimate Plt Morphology Comment RBC Morph Comment D-Dimer, Quantitative (0.19-0.50) mg/L Puncture Site Rt radial ABG pH 7.42 (7.35-7.45) ABG pCO2 33.7 L (35.0-45.0) mmHg ABG pO2 94.0 (80.0-100.0) mmHg ABG HCO3 21.6 L (22.0-26.0) meq/L ABG O2 Saturation 98.1 H (96.0-97.0) % ABG Base Excess -1.7 (-2-2.0) A-a Gradient 14 mmHg O2 Delivery Device Room air FiO2 21.00 (21.00-100.00) % Sodium (136-145) mEq/L Potassium (3.5-5.1) mEq/L Chloride (98-107) mEq/L Carbon Dioxide (21-32) mEq/L Anion Gap (5-15) BUN (7-18) mg/dL Creatinine (0.55-1.02) mg/dL Est Cr Clr Drug Dosing mL/min Estimated GFR (MDRD) (>60) mL/min BUN/Creatinine Ratio (14-18) Glucose (74-106) mg/dL Calcium (8.5-10.1) mg/dL Magnesium (1.8-2.4) mg/dl Total Bilirubin (0.2-1.0) mg/dL AST (15-37) U/L ALT (14-59) U/L Alkaline Phosphatase (46-116) U/L Troponin I (0.00-0.056) ng/mL NT-Pro-B Natriuret Pep 24 (0-125) pg/mL Total Protein (6.4-8.2) g/dl Albumin (3.4-5.0) g/dl Globulin gm/dL Albumin/Globulin Ratio (1-2) TSH 3rd Generation (0.358-3.74) uIU/mL Urine Color Yellow (Yellow) Urine Appearance Clear (Clear) Urine pH 7.0 (5.0-8.0) Ur Specific [place] 1.020 (1.005-1.030) Urine Protein Negative (Negative) Urine Glucose (UA) Negative (Negative) Urine Ketones Negative (Negative) Urine Occult Blood Negative (Negative) Urine Nitrite Negative (Negative) Urine Bilirubin Negative (Negative) Urine Urobilinogen 0.2 (0.2-1.0) Ur Leukocyte Esterase Negative (Negative) Urine RBC 0-5 (0-5) /hpf Urine WBC 0-5 (0-5) /hpf Ur Squamous Epith Cells 0-5 (0-5) /hpf Amorphous Sediment Few H (NOT SEEN) /hpf Urine Bacteria Rare (FEW) /hpf Urine Mucus Many H (FEW) /hpf Urine HCG, Qual (NEGATIVE) 09/15/19 Range/Units 05:03 WBC (3.98-10.04) K/mm3 RBC (3.98-5.22) M/mm3 Hgb (11.2-15.7) gm/dl Hct (34.1-44.9) % MCV (79.4-94.8) fl MCH (25.6-32.2) pg MCHC (32.2-35.5) g/dl RDW Std Deviation (36.4-46.3) fL Plt Count (182-369) K/mm3 MPV (9.4-12.3) fl Neutrophils % (Manual) (40-60) % Band Neutrophils % (0-10) % Lymphocytes % (Manual) (20-40) % Atypical Lymphs % % Monocytes % (Manual) (2-10) % Eosinophils % (Manual) (0.7-5.8) % Basophils % (Manual) (0.1-1.2) Platelet Estimate Plt Morphology Comment RBC Morph Comment D-Dimer, Quantitative (0.19-0.50) mg/L Puncture Site ABG pH (7.35-7.45) ABG pCO2 (35.0-45.0) mmHg ABG pO2 (80.0-100.0) mmHg ABG HCO3 (22.0-26.0) meq/L ABG O2 Saturation (96.0-97.0) % ABG Base Excess (-2-2.0) A-a Gradient mmHg O2 Delivery Device FiO2 (21.00-100.00) % Sodium (136-145) mEq/L Potassium (3.5-5.1) mEq/L Chloride (98-107) mEq/L Carbon Dioxide (21-32) mEq/L Anion Gap (5-15) BUN (7-18) mg/dL Creatinine (0.55-1.02) mg/dL Est Cr Clr Drug Dosing mL/min Estimated GFR (MDRD) (>60) mL/min BUN/Creatinine Ratio (14-18) Glucose (74-106) mg/dL Calcium (8.5-10.1) mg/dL Magnesium (1.8-2.4) mg/dl Total Bilirubin (0.2-1.0) mg/dL AST (15-37) U/L ALT (14-59) U/L Alkaline Phosphatase (46-116) U/L Troponin I (0.00-0.056) ng/mL NT-Pro-B Natriuret Pep (0-125) pg/mL Total Protein (6.4-8.2) g/dl Albumin (3.4-5.0) g/dl Globulin gm/dL Albumin/Globulin Ratio (1-2) TSH 3rd Generation (0.358-3.74) uIU/mL Urine Color (Yellow) Urine Appearance (Clear) Urine pH (5.0-8.0) Ur Specific [place] (1.005-1.030) Urine Protein (Negative) Urine Glucose (UA) (Negative) Urine Ketones (Negative) Urine Occult Blood (Negative) Urine Nitrite (Negative) Urine Bilirubin (Negative) Urine Urobilinogen (0.2-1.0) Ur Leukocyte Esterase (Negative) Urine RBC (0-5) /hpf Urine WBC (0-5) /hpf Ur Squamous Epith Cells (0-5) /hpf Amorphous Sediment (NOT SEEN) /hpf Urine Bacteria (FEW) /hpf Urine Mucus (FEW) /hpf Urine HCG, Qual Negative (NEGATIVE) - Re-Assessments/Exams Free Text/Narrative Re-Assessment/Exam: 09/15/19 04:02 As predicted, the patient's insight into her anxiety disorder was short-lived, and she is now back with virtually identical symptoms from last night, which I felt were due to anxiety. The patient now states that she does not recall much of our conversation from yesterday, and did not read the discharge instructions that I printed out for her. She states they are between the seats in her car. In order to determine once and for all that the patient's symptoms are not organic, I have ordered an exhaustive workup. 09/15/19 04:42 2 view chest radiograph appears to be grossly normal. The cardiac silhouette is within normal limits. No pulmonary vascular congestion. No pleural effusions. No focal infiltrate. No pneumothorax. Formal read per the Radiologist pending. 09/15/19 05:37 The patient is not orthostatic. 09/15/19 05:48 The patient's CBC is unremarkable. Her CMP is unremarkable. Her magnesium level is within normal limits at 2.2. Her troponin is undetectably low. Her D-dimer is slightly elevated at 0.63. Her BNP is within normal limits at 24. Her TSH is within normal limits at 1.781. Her ABG represents a chronic/compensated respiratory alkalosis. Her urinalysis is unremarkable. Her urine test is negative. The patient's ABG confirms what I suspected, which is that the patient has chronic hyperventilation, responsible for her symptoms. Her hyperventilation is due to untreated anxiety. My recommendation for the patient is unchanged; that she follow-up with Dr. Harvey to establish a PCP and to discuss treatment options for anxiety. 09/15/19 06:05 Test results and my recommendations discussed with the patient. She mentioned that she has 180 tablets of Xanax and 200 tablets of Ambien in her bedside table. She states that she will contact the office of Dr. Harvey today, to make an appointment to be seen and evaluated. Since the patient has a history of a possible suicide attempt by Ativan overdose on 07/20/2019, and because there is no earthly reason why anybody would need to have that many tablets of either of those medicines on hand, I recommended that she take all of her Xanax and Ambien tablets with her when she sees Dr. Harvey. Dr. Harvey may be able to help the patient dispose of the tablets. Departure - Departure Time of Disposition: 06:07 Disposition: Home, Self-Care 01 Condition: Good Clinical Impression: Hyperventilation syndrome, Anxiety - Discharge Information *PRESCRIPTION DRUG MONITORING PROGRAM REVIEWED*: Not Applicable *COPY OF PRESCRIPTION DRUG MONITORING REPORT IN PATIENT SPENCER: Not Applicable Instructions: Generalized Anxiety Disorder, Adult, Hyperventilation Referrals: Madison Harvey MD [Physician] - Lucrecia Ly MD [Ordering Only Provider] - Vasiliy Christie MD [Ordering Only Provider] - Pro Hernandez MD [Ordering Only Provider] - Forms: ED Department Discharge Additional Instructions: You were seen in the emergency room for continued symptoms of feeling like your lungs are "still", your mind is blank, and that you are falling a lot due to weakness. Workup in the ER included blood work, an arterial blood gas, a urinalysis, a urine test, positional blood pressure checks, a chest x-ray, and an ECG. The arterial blood gas confirmed that you are chronically hyperventilating. Hyperventilation is usually caused by anxiety, although can be caused by a variety of medical conditions, including metabolic acidosis, diabetic ketoacidosis, uremia, hypocalcemia, hypoglycemia, hyperthyroidism, liver failure , , severe anemia, sepsis, acute coronary event, sympathomimetic toxidrome, organic central nervous system disorders, pneumothorax, pneumonia, dysrhythmias, pulmonary emboli, and congestive heart failure. All of these have been ruled out. By a process of elimination, the cause of your hyperventilation is anxiety. As discussed, we strongly recommend that you follow-up with Dr. Madison Harvey to establish her as your PCP, and to discuss treatment options for anxiety. We strongly recommend that you take all of your 180 tablets of Xanax and 200 tablets of Ambien with you when you see Dr. Harvey, so that she can arrange to dispose of them. As discussed, there are no quick fixes for anxiety. You need to be patient. If any other problems, please do not hesitate to return to the ER. Sepsis Event Note - Evaluation Sepsis Screening Result: No Definite Risk - Focused Exam Date Exam was Performed: 09/16/19 Time Exam was Performed: 03:37 - My Orders Last 24 Hours: My Active Orders 09/15/19 03:59 EKG Documentation Completion [RC] STAT Orthostatic Vital Signs [RC] STAT - Assessment/Plan Last 24 Hours: My Active Orders 09/15/19 03:59 EKG Documentation Completion [RC] STAT Orthostatic Vital Signs [RC] STAT
--- NOTE | 2019-09-15 09:52 | CR ---
Chest: Two views of the chest were obtained. Comparison: Prior chest x-ray of 05/19/19. Heart size and mediastinum are normal. Lungs are clear. Bony structures are unremarkable for the patient's age. Impression: 1. Nothing acute is appreciated on two-view chest x-ray. Diagnostic code #1 This report was dictated in [place] Standard Time
== END 2019-09-15 06:24 | disposition home or self-care (01) ==
LOC: JD.ED 03:13
DX: F45.8 Other somatoform disorders (principal); F41.9 Anxiety disorder, unspecified; G47.00 Insomnia, unspecified; Z88.8 Allergy status to other drugs, medicaments and biological substances; Z88.5 Allergy status to narcotic agent; Z91.048 Other nonmedicinal substance allergy status; Z79.899 Other long term (current) drug therapy
CPT/HCPCS: 36415; 36600; 71046; 71046-26; 80053; 81001; 81025; 82803; 83735; 83880; 84443; 84484; 85007; 85027; 85379; 93005; 99285-25

== ENCOUNTER 2019-09-17 22:05 | Emergency (ER) | payer MEDICAID ==
[2019-09-17 22:20] VITALS: BP 113/66; PULSE 94
--- NOTE | 2019-09-17 22:25 | EDM.PDOC ---
ED HPI GENERAL MEDICAL PROBLEM - General Chief Complaint: Neuro Symptoms/Deficits Stated Complaint: KEEPS FALLING DOWN/HIT HEAD Time Seen by Provider: 09/17/19 22:17 Source of Information: Reports: Patient, Family (mother) History Limitations: Reports: Other (Rambling histrionic and imprecise presentation) - History of Present Illness INITIAL COMMENTS - FREE TEXT/NARRATIVE: TRIAGE NOTE -- pt states for the past 5-6 days has been having an increase in falls, weakness, confusion, dizziness, and disorientation. Pt alert and able to answer questions appropriately during triage. pt states has been seen a couple of times over the past few days in ED for similar symptoms. [ End ] The basic complaint is the inability to walk, at least walk steadily, for the past day or so. This is the third ER visit in 6 days. There is little in the way of focused history however. Risk factors consist of taking Xanax multiple times a day and refusal to accept psychiatric treatment. Headache Pain Score (Numeric/FACES): 9 - Related Data Allergies Allergy/AdvReac Type Severity Reaction Status Date / Time cat dander Allergy Shortness Verified 09/17/19 22:16 of Breath dog dander Allergy Shortness Verified 09/17/19 22:16 of Breath oxycodone [From Percocet] Allergy Cannot Verified 09/17/19 22:16 Remember prochlorperazine Allergy Cannot Verified 09/17/19 22:16 [From Compazine] Remember acetaminophen [From Percocet] AdvReac Nausea and Verified 09/17/19 22:16 Vomiting aspirin [From Percodan] AdvReac Nausea and Verified 09/17/19 22:16 Vomiting oxycodone HCl [From Percocet] AdvReac Nausea and Verified 09/17/19 22:16 Vomiting oxycodone terephthalate AdvReac Nausea and Verified 09/17/19 22:16 [From Percodan] Vomiting prochlorperazine edisylate AdvReac Seizure Verified 09/17/19 22:16 [From Compazine] prochlorperazine maleate AdvReac Seizure Verified 09/17/19 22:16 [From Compazine] Home Meds: Home Meds Budesonide/Formoterol Fumarate [Symbicort 160-4.5 Mcg Inhaler] 2 puff INH ASDIRECTED PRN 05/19/19 [History] ALPRAZolam [Xanax] 2 mg PO BEDTIME 07/13/19 [History] Zolpidem Tartrate [Ambien] 10 mg PO BEDTIME 07/20/19 [History] Past Medical History HEENT History: Reports: None Other HEENT History: jaw surgery for underbite Cardiovascular History: Reports: None Respiratory History: Reports: Asthma, TB Other Respiratory History: latent TB Gastrointestinal History: Reports: GERD Genitourinary History: Reports: None, UTI, Recurrent 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 that put her at high risk for stroke or seizure Psychiatric History: Reports: Anxiety, Bipolar, Depression Other Psychiatric History: insominia Endocrine/Metabolic History: Reports: None, Hypothyroidism Hematologic History: Reports: None Immunologic History: Reports: None Oncologic (Cancer) History: Reports: None Dermatologic History: Reports: None - Infectious Disease History Infectious Disease History: Reports: Chicken Pox, TB Other Infectious Disease History: latent TB - Past Surgical History Head Surgeries/Procedures: Reports: None HEENT Surgical History: Reports: Oral Surgery GI Surgical History: Reports: Colonoscopy, EGD Female Surgical History: Reports: Breast Implant, D&C Social & Family History - Family History Family Medical History: Noncontributory - Tobacco Use Smoking Status *Q: Never Smoker - Caffeine Use Caffeine Use: Reports: Tea Other Caffeine Use: states hasn't had in over one week. - Recreational Drug Use Recreational Drug Use: No - Living Situation & Occupation Living situation: Reports: with Family, Single Occupation: Unemployed ED ROS GENERAL - Review of Systems Review Of Systems: Comprehensive ROS is negative, except as noted in HPI. ED EXAM, NEURO - Physical Exam Exam: See Below Exam Limited By: No Limitations General Appearance: Alert, WD/WN, No Apparent Distress, Anxious Eye Exam: Bilateral Eye: EOMI, PERRL Ears: Normal External Exam Nose: Normal Inspection Throat/Mouth: Normal Inspection Head Exam: Atraumatic, Normocephalic Neck: Normal Inspection, Supple Respiratory/Chest: No Respiratory Distress, Normal Breath Sounds Cardiovascular: Regular Rate, Rhythm GI/Abdominal: Soft, Non-Tender Neurological: Alert, Abnormal Gait, Other (Speech slightly slurred, no obvious focality.). No: Normal Gait (Ataxic and has to be helped to the bathroom) Back Exam: Normal Inspection Extremities: Normal Inspection Psychiatric: Other (Pressured speech, demanding, a bit hypomanic) Skin Exam: Warm, Dry Course - Vital Signs Text/Narrative:: Patient has had an appropriate evaluation of her ataxia. CT of the brain is negative for any acute process no change from the one about 2 months ago. The patient is taking Xanax multiple times a day. She was given to understand that her symptoms are likely from the benzodiazepine overuse. She says she will cut down to twice a day. She was told that she needs to stop taking them altogether. She says she will stop taking them altogether. She was told that she should be in the hospital to detox. She refuses to be admitted to the hospital. She was informed that we have the choice of either admitting her to the hospital transferring her or she may send AGAINST MEDICAL ADVICE and go home. She refuses admission refuses transfer and insists on going home. We will let her sign AMA. Last Recorded V/S: Last Vital Signs Temp 36.4 C 09/17/19 22:16 Pulse 94 09/17/19 22:16 Resp 33 H 09/17/19 22:16 BP 113/66 09/17/19 22:16 Pulse Ox 99 09/17/19 22:16 - Orders/Labs/Meds Orders: Active Orders 24 hr Category Date Time Status EKG Documentation Completion [RC] STAT Care 09/17/19 23:59 Active Head wo Cont [CT] Stat Exams 09/18/19 00:01 Taken CULTURE URINE [RM] Stat Lab 09/17/19 23:12 Received Labs: Laboratory Tests 09/17/19 09/17/19 09/17/19 Range/Units 23:12 23:12 23:12 WBC (3.98-10.04) K/mm3 RBC (3.98-5.22) M/mm3 Hgb (11.2-15.7) gm/dl Hct (34.1-44.9) % MCV (79.4-94.8) fl MCH (25.6-32.2) pg MCHC (32.2-35.5) g/dl RDW Std Deviation (36.4-46.3) fL Plt Count (182-369) K/mm3 MPV (9.4-12.3) fl Neut % (Auto) (34.0-71.1) % Lymph % (Auto) (19.3-51.7) % [place] % (Auto) (4.7-12.5) % Eos % (Auto) (0.7-5.8) Baso % (Auto) (0.1-1.2) % Neut # (Auto) (1.56-6.13) K/mm3 Lymph # (Auto) (1.18-3.74) K/mm3 [place] # (Auto) (0.24-0.36) K/mm3 Eos # (Auto) (0.04-0.36) K/mm3 Baso # (Auto) (0.01-0.08) K/mm3 Sodium (136-145) mEq/L Potassium (3.5-5.1) mEq/L Chloride (98-107) mEq/L Carbon Dioxide (21-32) mEq/L Anion Gap (5-15) BUN (7-18) mg/dL Creatinine (0.55-1.02) mg/dL Est Cr Clr Drug Dosing mL/min Estimated GFR (MDRD) (>60) mL/min BUN/Creatinine Ratio (14-18) Glucose (74-106) mg/dL Calcium (8.5-10.1) mg/dL Magnesium (1.8-2.4) mg/dl Total Bilirubin (0.2-1.0) mg/dL AST (15-37) U/L ALT (14-59) U/L Alkaline Phosphatase (46-116) U/L Total Protein (6.4-8.2) g/dl Albumin (3.4-5.0) g/dl Globulin gm/dL Albumin/Globulin Ratio (1-2) Urine Color Light yellow (Yellow) Urine Appearance Slt cloudy H (Clear) Urine pH 6.5 (5.0-8.0) Ur Specific [place] 1.020 (1.005-1.030) Urine Protein Negative (Negative) Urine Glucose (UA) Negative (Negative) Urine Ketones Negative (Negative) Urine Occult Blood Negative (Negative) Urine Nitrite Negative (Negative) Urine Bilirubin Negative (Negative) Urine Urobilinogen 0.2 (0.2-1.0) Ur Leukocyte Esterase Trace H (Negative) Urine RBC 0-5 (0-5) /hpf Urine WBC 0-5 (0-5) /hpf Ur Squamous Epith Cells 10-20 H (0-5) /hpf Urine Bacteria Few (FEW) /hpf Urine Mucus Few (FEW) /hpf Urine HCG, Qual Negative (NEGATIVE) Urine Opiates Screen Negative (JUOYBO=167) Ur Buprenorphine Scrn Negative (CUTOFF=10) Ur Oxycodone Screen Negative (IRJ6QY=864) Urine Methadone Screen Negative (BBPKMI=178) Ur Propoxyphene Screen Negative (VMLSCW=242) Ur Barbiturates Screen Negative (BIVWKK=457) Ur Tricyclics Screen Negative (OTYTSA=844) Ur Phencyclidine Scrn Negative (CUTOFF=25) Ur Amphetamine Screen Negative (LTFCSJ=083) U Methamphetamines Scrn Negative (WWXXFV=551) U Benzodiazepines Scrn Presumptive positive H (EZDACY=118) U Cocaine Metab Screen Negative (FZBBDC=345) U Marijuana (THC) Screen Negative (CUTOFF=50) Ethyl Alcohol (0.00) gm% 09/18/19 09/18/19 Range/Units 00:15 00:15 WBC 5.38 (3.98-10.04) K/mm3 RBC 4.60 (3.98-5.22) M/mm3 Hgb 14.0 (11.2-15.7) gm/dl Hct 41.6 (34.1-44.9) % MCV 90.4 (79.4-94.8) fl MCH 30.4 (25.6-32.2) pg MCHC 33.7 (32.2-35.5) g/dl RDW Std Deviation 42.8 (36.4-46.3) fL Plt Count 286 (182-369) K/mm3 MPV 8.8 L (9.4-12.3) fl Neut % (Auto) 61.8 (34.0-71.1) % Lymph % (Auto) 24.5 (19.3-51.7) % [place] % (Auto) 11.3 (4.7-12.5) % Eos % (Auto) 1.5 (0.7-5.8) Baso % (Auto) 0.7 (0.1-1.2) % Neut # (Auto) 3.32 (1.56-6.13) K/mm3 Lymph # (Auto) 1.32 (1.18-3.74) K/mm3 [place] # (Auto) 0.61 H (0.24-0.36) K/mm3 Eos # (Auto) 0.08 (0.04-0.36) K/mm3 Baso # (Auto) 0.04 (0.01-0.08) K/mm3 Sodium 139 (136-145) mEq/L Potassium 3.7 (3.5-5.1) mEq/L Chloride 105 (98-107) mEq/L Carbon Dioxide 25 (21-32) mEq/L Anion Gap 12.7 (5-15) BUN 6 L (7-18) mg/dL Creatinine 0.8 (0.55-1.02) mg/dL Est Cr Clr Drug Dosing 84.54 mL/min Estimated GFR (MDRD) > 60 (>60) mL/min BUN/Creatinine Ratio 7.5 L (14-18) Glucose 124 H (74-106) mg/dL Calcium 8.0 L (8.5-10.1) mg/dL Magnesium 2.1 (1.8-2.4) mg/dl Total Bilirubin 0.1 L (0.2-1.0) mg/dL AST 13 L (15-37) U/L ALT 19 (14-59) U/L Alkaline Phosphatase 72 (46-116) U/L Total Protein 7.5 (6.4-8.2) g/dl Albumin 3.3 L (3.4-5.0) g/dl Globulin 4.2 gm/dL Albumin/Globulin Ratio 0.8 L (1-2) Urine Color (Yellow) Urine Appearance (Clear) Urine pH (5.0-8.0) Ur Specific [place] (1.005-1.030) Urine Protein (Negative) Urine Glucose (UA) (Negative) Urine Ketones (Negative) Urine Occult Blood (Negative) Urine Nitrite (Negative) Urine Bilirubin (Negative) Urine Urobilinogen (0.2-1.0) Ur Leukocyte Esterase (Negative) Urine RBC (0-5) /hpf Urine WBC (0-5) /hpf Ur Squamous Epith Cells (0-5) /hpf Urine Bacteria (FEW) /hpf Urine Mucus (FEW) /hpf Urine HCG, Qual (NEGATIVE) Urine Opiates Screen (MOSOOK=194) Ur Buprenorphine Scrn (CUTOFF=10) Ur Oxycodone Screen (AEE5DO=485) Urine Methadone Screen (ELFDFD=702) Ur Propoxyphene Screen (YTMRJT=492) Ur Barbiturates Screen (TWRRZV=237) Ur Tricyclics Screen (RJIYVD=802) Ur Phencyclidine Scrn (CUTOFF=25) Ur Amphetamine Screen (JYAEFW=696) U Methamphetamines Scrn (UKQNSS=732) U Benzodiazepines Scrn (XTJTXL=965) U Cocaine Metab Screen (HMTEJN=675) U Marijuana (THC) Screen (CUTOFF=50) Ethyl Alcohol 0.00 (0.00) gm% Departure - Departure Time of Disposition: 02:20 Disposition: Against Medical Advice 07 Condition: Fair Clinical Impression: Benzodiazepine abuse - Discharge Information Referrals: Madison Harvey MD [Primary Care Provider] - Forms: Refusal of Care AMA Sepsis Event Note - Evaluation Sepsis Screening Result: No Definite Risk - Focused Exam Vital Signs: Vital Signs Temp Pulse Resp BP Pulse Ox 09/17/19 22:16 36.4 C 94 33 H 113/66 99 Date Exam was Performed: 09/18/19 Time Exam was Performed: 02:09 - My Orders Last 24 Hours: My Active Orders 09/17/19 23:12 CULTURE URINE [RM] Stat 09/17/19 23:59 EKG Documentation Completion [RC] STAT 09/18/19 00:01 Head wo Cont [CT] Stat - Assessment/Plan Last 24 Hours: My Active Orders 09/17/19 23:12 CULTURE URINE [RM] Stat 09/17/19 23:59 EKG Documentation Completion [RC] STAT 09/18/19 00:01 Head wo Cont [CT] Stat
--- NOTE | 2019-09-19 07:42 | CT ---
Head CT Technique: Multiple axial sections through the brain were obtained. Intravenous contrast was not utilized. Comparison: Prior head CT exam of 05/19/19. Findings: Ventricles along the basal cisterns and sulci over the convexities appear within normal limits for the patient's age. No abnormal parenchymal densities are seen. No evidence of intracranial hemorrhage. No midline shift or mass effect is seen. Bone window settings were reviewed. No acute calvarial abnormality is seen. Visualized mastoid sinuses are clear. Visualized paranasal sinuses are clear. Impression: 1. Nothing acute is appreciated on noncontrast head CT exam. 2. Findings remain fairly stable from previous exam. Diagnostic code #1 I agree with preliminary report issued by [facility] ([facility] report finalized on 09/18/19, 2:03 AM Central Time) This report was dictated in [place] Standard Time
== END 2019-09-18 02:37 | disposition left against medical advice (07) ==
LOC: JD.ED 22:05
DX: F13.10 Sedative, hypnotic or anxiolytic abuse, uncomplicated (principal); J45.909 Unspecified asthma, uncomplicated; F41.9 Anxiety disorder, unspecified; F32.9 Major depressive disorder, single episode, unspecified; E03.9 Hypothyroidism, unspecified; Z88.5 Allergy status to narcotic agent; Z91.048 Other nonmedicinal substance allergy status; Z88.8 Allergy status to other drugs, medicaments and biological substances; Z79.899 Other long term (current) drug therapy
CPT/HCPCS: 36415; 70450; 70450-26; 80053; 80306; 81001; 81025; 83735; 85025; 87086; 93005; 93010; 99282; 99285-25; G0480

== ENCOUNTER 2019-10-10 14:34 | Emergency (ER) | payer MEDICAID ==
--- NOTE | 2019-10-10 14:57 | EDM.PDOC ---
ED HPI GENERAL MEDICAL PROBLEM - General Chief Complaint: Skin Complaint Stated Complaint: ITCHING Time Seen by Provider: 10/10/19 14:47 Source of Information: Reports: Patient History Limitations: Reports: No Limitations - History of Present Illness INITIAL COMMENTS - FREE TEXT/NARRATIVE: Patient's unfortunate 49-year-old female who presents emergency Department today with complaint of diffuse pruritus. Patient reports she's had itching on her skin last 6 months. She reports she is taking medications with no improvement in symptoms at all. Patient reports that she's not had any angioedema to her lips or tongue no shortness of breath. However, she has been seen in the past and he shot of Kenalog which reports that his had no improvement in symptoms she was told by her doctor to come to the emergency department or treatment with an H1. Patient reports she has difficulty sleeping secondary to the itching and has a appointment with an precinct captain on the this month area patient was placed on selenium ointment, and cyproheptadine no improvement in symptoms - Related Data Allergies Allergy/AdvReac Type Severity Reaction Status Date / Time cat dander Allergy Shortness Verified 09/17/19 22:16 of Breath dog dander Allergy Shortness Verified 09/17/19 22:16 of Breath oxycodone [From Percocet] Allergy Cannot Verified 09/17/19 22:16 Remember prochlorperazine Allergy Cannot Verified 09/17/19 22:16 [From Compazine] Remember acetaminophen [From Percocet] AdvReac Nausea and Verified 09/17/19 22:16 Vomiting aspirin [From Percodan] AdvReac Nausea and Verified 09/17/19 22:16 Vomiting oxycodone HCl [From Percocet] AdvReac Nausea and Verified 09/17/19 22:16 Vomiting oxycodone terephthalate AdvReac Nausea and Verified 09/17/19 22:16 [From Percodan] Vomiting prochlorperazine edisylate AdvReac Seizure Verified 09/17/19 22:16 [From Compazine] prochlorperazine maleate AdvReac Seizure Verified 09/17/19 22:16 [From Compazine] Home Meds: Home Meds Budesonide/Formoterol Fumarate [Symbicort 160-4.5 Mcg Inhaler] 2 puff INH ASDIRECTED PRN 05/19/19 [History] ALPRAZolam [Xanax] 2 mg PO BEDTIME 07/13/19 [History] Zolpidem Tartrate [Ambien] 10 mg PO BEDTIME 07/20/19 [History] hydrOXYzine HCL [Atarax] 25 mg PO Q4H PRN #20 tab 10/10/19 [Rx] Past Medical History HEENT History: Reports: None Other HEENT History: jaw surgery for underbite Cardiovascular History: Reports: None Respiratory History: Reports: Asthma, TB Other Respiratory History: latent TB Gastrointestinal History: Reports: GERD Genitourinary History: Reports: None, UTI, Recurrent 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 that put her at high risk for stroke or seizure Psychiatric History: Reports: Anxiety, Bipolar, Depression Other Psychiatric History: insominia Endocrine/Metabolic History: Reports: None, Hypothyroidism Hematologic History: Reports: None Immunologic History: Reports: None Oncologic (Cancer) History: Reports: None Dermatologic History: Reports: None - Infectious Disease History Infectious Disease History: Reports: Chicken Pox, TB Other Infectious Disease History: latent TB - Past Surgical History Head Surgeries/Procedures: Reports: None HEENT Surgical History: Reports: Oral Surgery GI Surgical History: Reports: Colonoscopy, EGD Female Surgical History: Reports: Breast Implant, D&C Social & Family History - Family History Family Medical History: Noncontributory - Caffeine Use Caffeine Use: Reports: Tea Other Caffeine Use: states hasn't had in over one week. - Living Situation & Occupation Living situation: Reports: with Family, Single Occupation: Unemployed ED ROS GENERAL - Review of Systems Review Of Systems: See Below Constitutional: Denies: Fever, Chills Skin: Reports: Pruritis. Denies: Rash ED EXAM, SKIN/RASH Exam: See Below Exam Limited By: No Limitations General Appearance: Alert, WD/WN, Anxious, Mild Distress Ears: Normal External Exam, Normal Canal, Hearing Grossly Normal, Normal TMs Nose: Other (mild perinasal erythema with nasal base) Throat/Mouth: Normal Inspection, Normal Lips, Normal Teeth, Normal Gums, Normal Oropharynx, Normal Voice, No Airway Compromise, Other (Perioral erythema mild) Neck: Normal Inspection, Supple, Non-Tender, Full Range of Motion Respiratory/Chest: No Respiratory Distress, Lungs Clear, Normal Breath Sounds, No Accessory Muscle Use, Chest Non-Tender Cardiovascular: Normal Peripheral Pulses, Regular Rate, Rhythm, No Edema, No Gallop, No JVD, No Murmur, No Rub GI/Abdominal: Normal Bowel Sounds, Soft, Non-Tender, No Organomegaly, No Distention, No Abnormal Bruit, No Mass Back Exam: Normal Inspection, Full Range of Motion, NT Extremities: Normal Inspection, Normal Range of Motion, Non-Tender, No Pedal Edema, Normal Capillary Refill Neurological: Alert, Oriented Psychiatric: Anxious Skin: Warm, Dry, Intact, No Rash Course - Vital Signs Last Recorded V/S: Last Vital Signs Temp 98.5 F 10/10/19 14:51 Pulse 81 10/10/19 14:51 Resp 16 10/10/19 14:51 BP 117/80 10/10/19 14:51 Pulse Ox 99 10/10/19 14:51 - Orders/Labs/Meds Meds: Medications Discontinued Medications Generic Name Dose Route Start Last Admin Trade Name Freq PRN Reason Stop Dose Admin Hydroxyzine HCl 50 mg 10/10/19 15:01 10/10/19 15:21 Vistaril IM 10/10/19 15:02 50 mg ONETIME ONE Administration Methylprednisolone Sodium Succinate 125 mg 10/10/19 15:01 10/10/19 15:20 Solu-Medrol IM 10/10/19 15:02 125 mg ONETIME ONE Administration - Re-Assessments/Exams Free Text/Narrative Re-Assessment/Exam: 10/10/19 16:08 She reports no improvement from Solu-Medrol and Vistaril will try outpatient Atarax and have patient follow-up with program specialist Departure - Departure Time of Disposition: 16:09 Disposition: Home, Self-Care 01 Condition: Good Clinical Impression: Pruritus - Discharge Information Prescriptions: hydrOXYzine HCL [Atarax] 25 mg PO Q4H PRN #20 tab PRN Reason: Itching Referrals: Madison Harvey MD [Primary Care Provider] - Forms: ED Department Discharge Sepsis Event Note - Focused Exam Vital Signs: Vital Signs Temp Pulse Resp BP Pulse Ox 10/10/19 14:51 98.5 F 81 16 117/80 99 Date Exam was Performed: 10/10/19 Time Exam was Performed: 16:08
[2019-10-10] MEDS ORDERED: methylPREDNISolone Sodium Succinate 125 MG/2 ML SDV IM ONE (15:01)
[2019-10-10] MEDS ORDERED: hydrOXYzine HCl 25 MG/ML SDV IM ONE (15:01)
[2019-10-10 15:02] VITALS: BP 117/80; PULSE 81
== END 2019-10-10 16:23 | disposition home or self-care (01) ==
LOC: JD.ED 14:34
DX: L29.9 Pruritus, unspecified (principal); J45.909 Unspecified asthma, uncomplicated; F41.9 Anxiety disorder, unspecified; F32.9 Major depressive disorder, single episode, unspecified; Z88.8 Allergy status to other drugs, medicaments and biological substances; Z91.048 Other nonmedicinal substance allergy status; Z88.5 Allergy status to narcotic agent; Z79.899 Other long term (current) drug therapy
CPT/HCPCS: 96372; 99282; J2930; J3410

== ENCOUNTER 2019-11-23 00:08 | Emergency (ER) | payer MEDICAID ==
[2019-11-23 00:16] VITALS: BP 125/74; PULSE 98
--- NOTE | 2019-11-23 00:36 | EDM.PDOC ---
ED HPI GENERAL MEDICAL PROBLEM - General Chief Complaint: ENT Problem Stated Complaint: SORE THROAT,MIGRAINE Time Seen by Provider: 11/23/19 00:20 Source of Information: Reports: Patient History Limitations: Reports: No Limitations - History of Present Illness INITIAL COMMENTS - FREE TEXT/NARRATIVE: Ms. Raymundo is a very pleasant 49-year-old woman with a past medical history significant for severe, untreated anxiety, and depression. Earlier charts indicate that she has a history of bipolar affective disorder, as well, although the patient denies it. She had previously been on large doses of alprazolam, but she decided to discontinue it altogether about 3 months ago. At present, she stopped seeing her Psychiatrist, and is on no psychiatric medications. She now presents to the ED stating that she developed a sore throat around 10: 00 yesterday morning, 11/22/2019. It hurts for her to swallow. No recent fever. She then developed a headache and nausea around 23:00. She states that her headache is the same type that she gets frequently. She refers to them as migraines, although she acknowledges that she was seen by a Neurologist who concluded that her headaches are not migraine-type. She states that her Neurologist is "useless". She has received Botox injections in the past, although prior medications have not helped. She states that she typically takes extra strength Tylenol for them. She also reports generalized pruritus for the past 7 months or so. She states that she has been treated with steroids and antihistamines, but that nothing has helped. A work-up by a Aircraft Structural Design Engineer was negative. Prior medical records indicate that she was supposed to see an china decorator on 10/17/2019, however, the patient is evasive about whether or not she actually kept that appointment. She states that she has an appointment to see an Genomics Scientist at [facility] on . Here in the ED, the patient is found to be hemodynamically stable, afebrile, saturating 96% on room air. She speaks in rapid, pressured speech with spontaneous flight of ideas. She is is showing some signs of agitation, by fidgeting with her hair a lot. The patient's PCP is Dr. Madison Harvey. Her Neurologist is Dr. Vasiliy Christie. Her Aircraft Structural Design Engineer is Dr. Isiah Mays. She does not recall the name of her Genomics Scientist, at [facility]. Her Neurosurgeon is Dr. Pro Hernandez, at [facility]. Her Psychiatrist was Dr. Lucrecia Ly. She did not receive an influenza vaccine this season, but agreed to receive one here today. Throat Pain Score (Numeric/FACES): 8 Headache Pain Score (Numeric/FACES): 9 - Related Data Allergies Allergy/AdvReac Type Severity Reaction Status Date / Time cat dander Allergy Shortness Verified 11/23/19 00:16 of Breath dog dander Allergy Shortness Verified 11/23/19 00:16 of Breath oxycodone [From Percocet] Allergy Cannot Verified 11/23/19 00:16 Remember prochlorperazine Allergy Cannot Verified 11/23/19 00:16 [From Compazine] Remember acetaminophen [From Percocet] AdvReac Nausea and Verified 11/23/19 00:16 Vomiting aspirin [From Percodan] AdvReac Nausea and Verified 11/23/19 00:16 Vomiting oxycodone HCl [From Percocet] AdvReac Nausea and Verified 11/23/19 00:16 Vomiting oxycodone terephthalate AdvReac Nausea and Verified 11/23/19 00:16 [From Percodan] Vomiting prochlorperazine edisylate AdvReac Seizure Verified 11/23/19 00:16 [From Compazine] prochlorperazine maleate AdvReac Seizure Verified 11/23/19 00:16 [From Compazine] Home Meds: Home Meds Budesonide/Formoterol Fumarate [Symbicort 160-4.5 Mcg Inhaler] 2 puff INH ASDIRECTED PRN 05/19/19 [History] ALPRAZolam [Xanax] 1 mg PO TID 07/13/19 [History] Zolpidem Tartrate [Ambien] 10 mg PO BEDTIME PRN 07/20/19 [History] Desogestrel-Ethinyl Estradiol [Juleber 28 Day Tablet] 1 tab PO DAILY 10/10/19 [ History] Gabapentin [Neurontin] 300 mg PO TID 10/10/19 [History] Gabapentin [Neurontin] 600 mg PO BEDTIME 10/10/19 [History] Montelukast [Singulair] 10 mg PO BEDTIME 10/10/19 [History] Selenium Sulfide 1 ml TOP DAILY PRN 10/10/19 [History] hydrOXYzine HCL [Atarax] 25 mg PO Q4H PRN #20 tab 10/10/19 [Rx] Past Medical History Respiratory History: Reports: Asthma (suspected, not tested) Gastrointestinal History: Reports: GERD TOW FEEDER History: Reports: Other (See Below) (IUD) Psychiatric History: Reports: Anxiety (untreated), Bipolar (untreated), Depression (untreated), Other (See Below) (Insomnia) - Infectious Disease History Infectious Disease History: Reports: Chicken Pox, TB (latent) - Past Surgical History HEENT Surgical History: Reports: Oral Surgery (wisdom teeth extraction, dental implants), Other (See Below) (Mandible surgery to correct an underbite) GI Surgical History: Reports: Colonoscopy (x 2), EGD (x 2) Female Surgical History: Reports: Breast Implant, D&C (x 3) Social & Family History - Family History Family Medical History: Noncontributory - Tobacco Use Smoking Status *Q: Never Smoker - Caffeine Use Caffeine Use: Reports: Tea Other Caffeine Use: states hasn't had in over one week. - Alcohol Use Alcohol Use History: Yes Alcohol Use Frequency: Rarely - Recreational Drug Use Recreational Drug Use: No - Living Situation & Occupation Living situation: Reports: with Family, Single Occupation: Unemployed ED ROS ENT - Review of Systems Review Of Systems: Comprehensive ROS is negative, except as noted in HPI. Skin: Reports: Other (Pruritus) Neurological: Reports: Headache (frequent) ED EXAM, ENT - Physical Exam Exam: See Below Exam Limited By: No Limitations General Appearance: Alert, WD/WN Eye Exam: Bilateral Eye: EOMI, Normal Inspection Ears: Normal External Exam, Normal Canal, Hearing Grossly Normal, Normal TMs Nose: Normal Inspection, Normal Mucousa, No Blood Mouth/Throat: Normal Inspection, Normal Gums, Normal Lips, Normal Oropharynx, Normal Teeth Head: Atraumatic, Normocephalic Neck: Normal Inspection, Supple, Non-Tender, Full Range of Motion. No: Lymphadenopathy (L), Lymphadenopathy (R) Neurological: Alert, Oriented, Normal Cognition, No Motor/Sensory Deficits Psychiatric: Anxious, Other (mentally agitated, as per the HPI) Skin: Warm, Dry, Intact, Normal Color, No Rash Course - Vital Signs Last Recorded V/S: Last Vital Signs Temp 36.1 C 11/23/19 00:12 Pulse 98 11/23/19 00:12 Resp 16 11/23/19 00:12 BP 125/74 11/23/19 00:12 Pulse Ox 96 11/23/19 00:12 - Orders/Labs/Meds Orders: Active Orders 24 hr Category Date Time Status Influenza Vaccine Charge [RC] .DISCHARGE Care 11/23/19 00:53 Ordered CULTURE STREP A CONFIRMATION [] Stat Lab 11/23/19 00:31 Results STREP SCRN A RAPID W CULT CONF [] Stat Lab 11/23/19 00:33 Ordered Meds: Medications Discontinued Medications Generic Name Dose Route Start Last Admin Trade Name Yo PRN Reason Stop Dose Admin Influenza Virus Vaccine 1 each 11/23/19 00:52 Pharmacy To Dose - Influenza Vaccine IM 11/23/19 00:53 ONETIME ONE Influenza Virus Vaccine 60 mcg 11/23/19 01:00 Fluzone Quad Syringe IM 11/23/19 01:01 .ONCE ONE Ondansetron HCl 4 mg 11/23/19 00:42 11/23/19 00:51 Zofran Odt PO 11/23/19 00:43 4 mg ONETIME ONE Administration - Re-Assessments/Exams Free Text/Narrative Re-Assessment/Exam: 11/23/19 00:37 The patient's oropharynx does not look bad, but I swabbed it for a rapid strep test. As for her headache, she reports that nothing that she has been given in the past works, therefore there is no point of my giving her medications that are unlikely to have any benefit. I will have her follow-up with her Neurologist in that regard. Similarly, with respect to her pruritus, this has been going on for 7 months, and no treatment has helped, therefore I will defer treatment to her Genomics Scientist. 11/23/19 01:00 The rapid strep test is negative. 11/23/19 01:02 Test results discussed with the patient. She likely has viral pharyngitis. I recommended [id number] Chloraseptic spray or warm salt water gargles, Tylenol, or ibuprofen. She will be given an influenza vaccine prior to discharge. Departure - Departure Time of Disposition: 01:02 Disposition: Home, Self-Care 01 Condition: Good Clinical Impression: Viral pharyngitis, Anxiety - Discharge Information *PRESCRIPTION DRUG MONITORING PROGRAM REVIEWED*: Not Applicable *COPY OF PRESCRIPTION DRUG MONITORING REPORT IN PATIENT SPENCER: Not Applicable Referrals: Madison Harvey MD [Primary Care Provider] - Vasiliy Christie MD [Ordering Only Provider] - Isiah Mays MD [Ordering Only Provider] - Pro Hernandez MD [Ordering Only Provider] - Lucrecia Ly MD [Ordering Only Provider] - Forms: ED Department Discharge Additional Instructions: You were seen in the emergency room for a sore throat, headache, nausea, and generalized itchiness. Work-up in the ER included a rapid strep test, which returned negative. Based on your history, physical exam, and ER rapid strep test, you are most likely suffering from viral pharyngitis. You were given a single dose of the anti-nausea medicine Zofran in the ER. Unfortunately, there are no medicines to get rid of viral pharyngitis - it will have to run its course. You may treat your sore throat with [id number] Chloraseptic spray, warm salt water gargles, Tylenol, or ibuprofen. With respect to your headache, we recommend that you follow-up with your Neurologist, Dr. Vasiliy Christie. With respect to your generalized itchiness, we recommend that you follow-up with your Genomics Scientist at [facility] at your previously scheduled appointment on 12/16/2019. If any other problems, please do not hesitate to return to the ER. *You were given an influenza vaccine during your ER visit.* Sepsis Event Note - Evaluation Sepsis Screening Result: No Definite Risk - Focused Exam Vital Signs: Vital Signs Temp Pulse Resp BP Pulse Ox 11/23/19 00:12 36.1 C 98 16 125/74 96 Date Exam was Performed: 11/23/19 Time Exam was Performed: 01:08 - My Orders Last 24 Hours: My Active Orders 11/23/19 00:31 CULTURE STREP A CONFIRMATION [RM] Stat 11/23/19 00:33 STREP SCRN A RAPID W CULT CONF [RM] Stat 11/23/19 00:53 Influenza Vaccine Charge [RC] .DISCHARGE - Assessment/Plan Last 24 Hours: My Active Orders 11/23/19 00:31 CULTURE STREP A CONFIRMATION [RM] Stat 11/23/19 00:33 STREP SCRN A RAPID W CULT CONF [RM] Stat 11/23/19 00:53 Influenza Vaccine Charge [RC] .DISCHARGE
[2019-11-23] MEDS ORDERED: Ondansetron 4 MG Tab.DIS PO ONE (00:42)
[2019-11-23] MEDS ORDERED: FLU Vacc QS2019-20(6MOS+)/PF 60 MCG/0.5 ML SYRINGE IM ONE (01:00)
== END 2019-11-23 01:20 | disposition home or self-care (01) ==
LOC: JD.ED 00:08
DX: J02.8 Acute pharyngitis due to other specified organisms (principal); F41.9 Anxiety disorder, unspecified; Z79.899 Other long term (current) drug therapy; Z91.09 Other allergy status, other than to drugs and biological substances; Z88.5 Allergy status to narcotic agent; Z88.8 Allergy status to other drugs, medicaments and biological substances; Z23 Encounter for immunization
CPT/HCPCS: 87077; 87081; 87430; 90471; 90686; 99283; A9270; G0008

== ENCOUNTER 2020-02-07 01:26 | Emergency (ER) | payer MEDICAID ==
[2020-02-07 01:43] VITALS: BP 132/74; PULSE 89
--- NOTE | 2020-02-07 02:19 | EDM.PDOC ---
ED HPI GENERAL MEDICAL PROBLEM - General Chief Complaint: Respiratory Problem Stated Complaint: COUGH ROOF OF MOUTH ITCHING Time Seen by Provider: 02/07/20 01:49 Source of Information: Reports: Patient History Limitations: Reports: No Limitations - History of Present Illness INITIAL COMMENTS - FREE TEXT/NARRATIVE: Ms. Raymundo is a very pleasant but extremely anxious 49-year-old woman with a past medical history significant for severe, untreated anxiety and depression. Earlier charts indicate that she has a history of bipolar affective disorder, as well, although the patient denies it. She had previously been on large doses of alprazolam, but she decided to discontinue them altogether around [place] 2019. She also stopped seeing her Psychiatrist, and is not currently on any psychiatric medications. The patient has a history of generalized pruritus since approximately April 2019. She had been treated with steroids and antihistamines at that did not help. A work-up by a Behavioral Therapist was negative. She was prescribed omalizumab (Xolair) by her Cloth Mender, with her first, and so far only dose, given on 01/30/2020. The patient now presents the ED stating that she developed a cough lasting approximately 1.5 hours, an itchy throat lasting approximately 1 hour, and chest pain lasting approximately 2 hours this past Thursday night, 02/05/2020. She states that these are symptoms that she had been told by the nurse who had administered the omalizumab that could represent a potentially fatal allergic reaction, and therefore she came to the ED to make sure that she is not suffering an allergic reaction to the omalizumab. She is unable to explain why she did not come in Thursday night or Thursday morning, instead waiting over 24 hours. Here in the ED, the patient is found to be hemodynamically stable, afebrile, saturating 100% on room air. As is her norm, she appears to be very anxious, is showing signs of mental agitation, is fidgeting with her hair a lot, and is speaking in rapid, pressured speech. She is difficult to direct. In addition to her concern about an allergic reaction, she is also concerned that her pruritus has persisted, despite the omalizumab - she states that she was told that it would likely take effect within a week. The patient's PCP is Dr. Madison Harvey. Her Cloth Mender is Dr. Lady Friend. Her Neurologist is Dr. Vasiliy Thomas. Her Behavioral Therapist is Dr. Isiah Mays. Her Neurosurgeon is Dr. Pro Hernandez, at [facility]. Her Psychiatrist was Dr. Lucrecia Ly. Chest Pain Score (Numeric/FACES): 4 - Related Data Allergies Allergy/AdvReac Type Severity Reaction Status Date / Time cat dander Allergy Severe Shortness Verified 02/07/20 01:43 of Breath dog dander Allergy Severe Shortness Verified 02/07/20 01:43 of Breath oxycodone [From Percocet] Allergy Severe Cannot Verified 02/07/20 01:43 Remember prochlorperazine Allergy Severe Cannot Verified 02/07/20 01:43 [From Compazine] Remember acetaminophen [From Percocet] AdvReac Severe Nausea and Verified 02/07/20 01:43 Vomiting aspirin [From Percodan] AdvReac Severe Nausea and Verified 02/07/20 01:43 Vomiting oxycodone HCl [From Percocet] AdvReac Severe Nausea and Verified 02/07/20 01:43 Vomiting oxycodone terephthalate AdvReac Severe Nausea and Verified 02/07/20 01:43 [From Percodan] Vomiting prochlorperazine edisylate AdvReac Severe Seizure Verified 02/07/20 01:43 [From Compazine] prochlorperazine maleate AdvReac Severe Seizure Verified 02/07/20 01:43 [From Compazine] Home Meds: Home Meds Budesonide/Formoterol Fumarate [Symbicort 160-4.5 Mcg Inhaler] 2 puff INH ASDIRECTED PRN 05/19/19 [History] ALPRAZolam [Xanax] 1 mg PO TID 07/13/19 [History] Zolpidem Tartrate [Ambien] 10 mg PO BEDTIME PRN 07/20/19 [History] Gabapentin [Neurontin] 300 mg PO TID 10/10/19 [History] Gabapentin [Neurontin] 600 mg PO BEDTIME 10/10/19 [History] Montelukast [Singulair] 10 mg PO BEDTIME 10/10/19 [History] Selenium Sulfide 1 ml TOP DAILY PRN 10/10/19 [History] desogestreL-ethinyl estradioL [Juleber 28 Day Tablet] 1 tab PO DAILY 10/10/19 [ History] hydrOXYzine HCL [Atarax] 25 mg PO Q4H PRN #20 tab 10/10/19 [Rx] Past Medical History Respiratory History: Reports: Asthma (suspected, not tested) Gastrointestinal History: Reports: GERD (untreated) LMP (Approximate): Other (See Below) (IUD) Neurological History: Reports: Head Trauma Psychiatric History: Reports: Anxiety (untreated), Bipolar (untreated), Depression (untreated), Other (See Below) (Insomnia) - Infectious Disease History Infectious Disease History: Reports: Chicken Pox, TB (latent) - Past Surgical History HEENT Surgical History: Reports: Oral Surgery (wisdom teeth extraction, dental implants), Other (See Below) (Mandible surgery to correct an underbite) GI Surgical History: Reports: Colonoscopy (x 2), EGD (x 2) Female Surgical History: Reports: Breast Implant, D&C (x 3) Social & Family History - Family History Family Medical History: Noncontributory - Tobacco Use Smoking Status *Q: Never Smoker - Caffeine Use Caffeine Use: Reports: None Other Caffeine Use: states hasn't had in over one week. - Alcohol Use Alcohol Use History: Yes Alcohol Use Frequency: Rarely - Recreational Drug Use Recreational Drug Use: No - Living Situation & Occupation Living situation: Reports: Single, with Family Occupation: Unemployed ED ROS GENERAL - Review of Systems Review Of Systems: Comprehensive ROS is negative, except as noted in HPI. ED EXAM, GENERAL - Physical Exam Exam: See Below Exam Limited By: No Limitations General Appearance: Alert, WD/WN, Anxious Eye Exam: Bilateral Eye: EOMI, Normal Inspection Ears: Normal External Exam, Normal Canal, Hearing Grossly Normal, Normal TMs Nose: Normal Inspection, Normal Mucosa, No Blood Throat/Mouth: Normal Inspection, Normal Lips (no swelling), Normal Teeth, Normal Gums, Normal Oropharynx (no uvular swelling), Normal Voice, No Airway Compromise Head: Atraumatic, Normocephalic Neck: Normal Inspection, Supple, Non-Tender, Full Range of Motion. No: Lymphadenopathy (L), Lymphadenopathy (R) Respiratory/Chest: No Respiratory Distress, Lungs Clear, Normal Breath Sounds, No Accessory Muscle Use. No: Decreased Breath Sounds, Crackles, Rales, Wheezing , Stridor, Prolonged Expiration Cardiovascular: Normal Peripheral Pulses, Regular Rate, Rhythm, No Edema, No Gallop, No JVD, No Murmur, No Rub Peripheral Pulses: 4+: Radial (L), Radial (R) GI/Abdominal: Normal Bowel Sounds, Soft, Non-Tender, No Organomegaly, No Distention, No Abnormal Bruit, No Mass (Female) Exam: Deferred Rectal (Female) Exam: Deferred Back Exam: Normal Inspection, Full Range of Motion, NT Extremities: Normal Inspection, Normal Range of Motion, No Pedal Edema, Normal Capillary Refill Neurological: Alert, Oriented, No Motor/Sensory Deficits Psychiatric: Anxious, Other (Agitated) Skin Exam: Warm, Dry, Intact, Normal Color, No Rash (no urticaria) Course - Vital Signs Last Recorded V/S: Last Vital Signs Temp 36.3 C 02/07/20 01:38 Pulse 89 02/07/20 01:38 Resp 18 02/07/20 01:38 BP 132/74 02/07/20 01:38 Pulse Ox 100 02/07/20 01:38 - Re-Assessments/Exams Free Text/Narrative Re-Assessment/Exam: 02/07/20 02:13 As above, the patient is here out of concern that she might be having an allergic reaction to the omalizumab that she received on 01/30/2020, however, on physical exam, there is no suggestion whatsoever that she is having an allergic reaction - she has no angioedema, no uvular swelling, no respiratory difficulty , no wheezing, no urticaria, and no hypotension. Her oxygen saturation is 100% on room air, consistent with hyperventilation, and the patient, as she usually is, is extremely anxious. I have reassured her that she is not having an allergic reaction, and that the symptoms that she experienced Thursday night are likely due to her untreated anxiety. I suggested that she seek professional treatment for her anxiety, but the patient, as she has done in the past, dismissed that idea. She may safely be discharged home. Departure - Departure Time of Disposition: 02:15 Disposition: Home, Self-Care 01 Condition: Good Clinical Impression: Anxiety - Discharge Information *PRESCRIPTION DRUG MONITORING PROGRAM REVIEWED*: Not Applicable *COPY OF PRESCRIPTION DRUG MONITORING REPORT IN PATIENT SPENCER: Not Applicable Instructions: Living With Anxiety Referrals: Madison Harvey MD [Primary Care Provider] - Lady Friend MD [Ordering Only Provider] - Pro Hernandez MD [Ordering Only Provider] - Lucrecia Ly MD [Ordering Only Provider] - Vasiliy Christie MD [Ordering Only Provider] - Isiah Mays MD [Ordering Only Provider] - Forms: ED Department Discharge Additional Instructions: You were seen in the emergency room for a cough, itchy throat, and chest pain on Thursday night, with the concern that your symptoms might represent an allergic reaction to the omalizumab (Xolair) that you were given on 01/30/2020. No signs of an allergic reaction were found on examination. Based on your history and physical examination, your symptoms are most likely due to your untreated anxiety disorder. As discussed, we strongly recommend that you seek professional help for treatment of your anxiety. If any other problems, please do not hesitate to return to the ER. Sepsis Event Note - Evaluation Sepsis Screening Result: No Definite Risk - Focused Exam Vital Signs: Vital Signs Temp Pulse Resp BP Pulse Ox 02/07/20 01:38 36.3 C 89 18 132/74 100 Date Exam was Performed: 02/07/20 Time Exam was Performed: 03:03
== END 2020-02-07 02:31 | disposition home or self-care (01) ==
LOC: JD.ED 01:26
DX: F41.9 Anxiety disorder, unspecified (principal); R05 Cough; J45.909 Unspecified asthma, uncomplicated; K21.9 Gastro-esophageal reflux disease without esophagitis; F31.9 Bipolar disorder, unspecified; Z88.8 Allergy status to other drugs, medicaments and biological substances; Z88.6 Allergy status to analgesic agent; Z79.899 Other long term (current) drug therapy
CPT/HCPCS: 99282; 99283

== ENCOUNTER 2020-05-31 20:38 | Emergency (ER) | payer MEDICARE, MEDICAID ==
[2020-05-31] MEDS ORDERED: Lidocaine/EPINEPHrine/Tetracaine Soln 1 ML TOP ONE (20:49)
[2020-05-31 20:53] VITALS: BP 132/81; PULSE 100
--- NOTE | 2020-05-31 21:01 | EDM.PDOC ---
ED HPI GENERAL MEDICAL PROBLEM - General Chief Complaint: ENT Problem Stated Complaint: EARRING BACK STUCK ON RIGHT EAR Time Seen by Provider: 05/31/20 20:48 Source of Information: Reports: Patient, RN Notes Reviewed History Limitations: Reports: No Limitations - History of Present Illness INITIAL COMMENTS - FREE TEXT/NARRATIVE: Patient is a 50 year old female who presents to the ED today for the evaluation of an earring back stuck in her right ear. She states that she was wearing earrings that were slightly heavy, so she had the backs pretty tight. She was able to retrieve the 1 of the left earlobe, but subsequently was not able to get the 1 out of the right earlobe, she states she does not have the tools to do so at home so she comes to the ER for management. She is not having any other sick-like symptoms, fever/chills, cough/shortness of breath. She simply come to get the earring back out of her earlobe. There is a mild amount of trauma to the ears, as her mother and her did try to remove the earring back by themselves before coming to the ER. - Related Data Allergies Allergy/AdvReac Type Severity Reaction Status Date / Time cat dander Allergy Severe Shortness Verified 05/31/20 20:53 of Breath dog dander Allergy Severe Shortness Verified 05/31/20 20:53 of Breath oxycodone [From Percocet] Allergy Severe Cannot Verified 05/31/20 20:53 Remember prochlorperazine Allergy Severe Cannot Verified 05/31/20 20:53 [From Compazine] Remember acetaminophen [From Percocet] AdvReac Severe Nausea and Verified 05/31/20 20:53 Vomiting aspirin [From Percodan] AdvReac Severe Nausea and Verified 05/31/20 20:53 Vomiting oxycodone HCl [From Percocet] AdvReac Severe Nausea and Verified 05/31/20 20:53 Vomiting oxycodone terephthalate AdvReac Severe Nausea and Verified 05/31/20 20:53 [From Percodan] Vomiting prochlorperazine edisylate AdvReac Severe Seizure Verified 05/31/20 20:53 [From Compazine] prochlorperazine maleate AdvReac Severe Seizure Verified 05/31/20 20:53 [From Compazine] Home Meds: Home Meds Budesonide/Formoterol Fumarate [Symbicort 160-4.5 Mcg Inhaler] 2 puff INH ASDIRECTED PRN 05/19/19 [History] ALPRAZolam [Xanax] 1 mg PO TID 07/13/19 [History] Zolpidem Tartrate [Ambien] 10 mg PO BEDTIME PRN 07/20/19 [History] Gabapentin [Neurontin] 300 mg PO TID 10/10/19 [History] Gabapentin [Neurontin] 600 mg PO BEDTIME 10/10/19 [History] Montelukast [Singulair] 10 mg PO BEDTIME 10/10/19 [History] Selenium Sulfide 1 ml TOP DAILY PRN 10/10/19 [History] desogestreL-ethinyl estradioL [Juleber 28 Day Tablet] 1 tab PO DAILY 10/10/19 [History] hydrOXYzine HCL [Atarax] 25 mg PO Q4H PRN #20 tab 10/10/19 [Rx] Past Medical History HEENT History: Reports: None Other HEENT History: jaw surgery for underbite Cardiovascular History: Reports: None Respiratory History: Reports: Asthma (suspected, not tested) Other Respiratory History: latent TB Gastrointestinal History: Reports: GERD (untreated) Genitourinary History: Reports: None, UTI, Recurrent CATTLE RANCHER History: Reports: Other (See Below) Other CATTLE RANCHER History: states has heavy periods, IUD Musculoskeletal History: Reports: None Neurological History: Reports: Head Trauma Other Neuro History: states has post-concussive disorder. 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 that put her at high risk for stroke or seizure Psychiatric History: Reports: Anxiety (untreated), Bipolar (untreated), Depression (untreated), Other (See Below) (Insomnia) Other Psychiatric History: insominia Endocrine/Metabolic History: Reports: None, Hypothyroidism Hematologic History: Reports: None Immunologic History: Reports: None Oncologic (Cancer) History: Reports: None Dermatologic History: Reports: Urticaria Other Dermatologic History: Itching for past 6 months - Infectious Disease History Infectious Disease History: Reports: Chicken Pox, TB (latent) Other Infectious Disease History: latent TB - Past Surgical History HEENT Surgical History: Reports: Oral Surgery (wisdom teeth extraction, dental implants), Other (See Below) (Mandible surgery to correct an underbite) GI Surgical History: Reports: Colonoscopy (x 2), EGD (x 2) Female Surgical History: Reports: Breast Implant, D&C (x 3) Social & Family History - Family History Family Medical History: Noncontributory - Caffeine Use Caffeine Use: Reports: None Other Caffeine Use: states hasn't had in over one week. - Living Situation & Occupation Living situation: Reports: Single, with Family Occupation: Unemployed ED ROS ENT - Review of Systems Review Of Systems: Comprehensive ROS is negative, except as noted in HPI. ED EXAM, ENT - Physical Exam Exam: See Below Exam Limited By: No Limitations General Appearance: Alert, WD/WN, No Apparent Distress Ears: Auricular Tenderness (of right lower earlobe, there is some mild bleeding/trauma noted to the ear piercing site. swelling is noted, the earring back is not readily visibly seen.) Respiratory/Chest: No Respiratory Distress, Lungs Clear, Normal Breath Sounds, No Accessory Muscle Use, Chest Non-Tender Cardiovascular: Normal Peripheral Pulses, Regular Rate, Rhythm, No Murmur Neurological: Alert, Oriented, Normal Cognition, No Motor/Sensory Deficits Psychiatric: Normal Affect, Normal Mood Skin: Warm, Dry, Intact, Normal Color, No Rash ED ENT PROCEDURES - Foreign Body Removal Indication:: earring back stuck in right earlobe Consent Obtained: Patient Performing Doctor:: Luisa Ramirez V Foreign Body Other Location Comment:: R ear lobe Anesthesia Type: Other (see below) (LET applied) Complications: No Comments: earring back was successfully removed from patient's ear lobe. Course - Vital Signs Last Recorded V/S: Last Vital Signs Temp 98.1 F 05/31/20 20:51 Pulse 100 05/31/20 20:51 Resp 16 05/31/20 20:51 BP 132/81 05/31/20 20:51 Pulse Ox 99 05/31/20 20:51 - Orders/Labs/Meds Meds: Medications Discontinued Medications Generic Name Dose Route Start Last Admin Trade Name Freq PRN Reason Stop Dose Admin Lidocaine/Tetracaine 1 ml 05/31/20 20:49 05/31/20 21:01 Let Soln TOP 05/31/20 20:50 1 ml ONETIME ONE Administration - Re-Assessments/Exams Free Text/Narrative Re-Assessment/Exam: 05/31/20 20:59 Patient presents to the ED to get her earring back out of her right earlobe. LET will be applied topically to the area, in hopes to numb and shrink some of the vasculature. We will then attempt to try to pick out the earring back after the LET has been applied for an appropriate amount of time. Departure - Departure Time of Disposition: 21:34 Disposition: Home, Self-Care 01 Condition: Good Clinical Impression: Foreign body in ear lobe Qualifiers: Encounter type: initial encounter Laterality: right Qualified Code(s): S00.451A - Superficial foreign body of right ear, initial encounter - Discharge Information *PRESCRIPTION DRUG MONITORING PROGRAM REVIEWED*: No *COPY OF PRESCRIPTION DRUG MONITORING REPORT IN PATIENT SPENCER: No Instructions: Ear Foreign Body, [id number] Referrals: Madison Harvey MD [Primary Care Provider] - Forms: ED Department Discharge Additional Instructions: You were evaluated in the ER today for the earring back retained within your right earlobe. This was retrieved successfully at this ER visit. You may want to apply topical bacitracin to the area to provide healing. Please keep the area clean and dry to prevent the spread of infection. Please monitor the area for any signs of infection like redness/swelling, pain/purulent drainage. Please return to the ER at any time if your symptoms change or worsen. Sepsis Event Note (ED) - Evaluation Sepsis Screening Result: No Definite Risk - Focused Exam Vital Signs: Vital Signs Temp Pulse Resp BP Pulse Ox 05/31/20 20:51 98.1 F 100 16 132/81 99
== END 2020-05-31 21:40 | disposition home or self-care (01) ==
LOC: JD.ED 20:38
DX: T16.1XXA Foreign body in right ear, initial encounter (principal); Z91.09 Other allergy status, other than to drugs and biological substances; Z88.5 Allergy status to narcotic agent; Z88.6 Allergy status to analgesic agent; Z88.8 Allergy status to other drugs, medicaments and biological substances; Z79.899 Other long term (current) drug therapy
CPT/HCPCS: 99282; 99283

== ENCOUNTER 2020-07-11 17:57 | Emergency (ER) | payer MEDICARE, MEDICAID ==
[2020-07-11 18:55] VITALS: BP 122/74; PULSE 102
[2020-07-11] MEDS ORDERED: Ondansetron 4 MG Tab.DIS PO ONE (20:32)
[2020-07-11] MEDS ORDERED: Haloperidol Lactate 5 MG/ML SDV IM ONE (20:32)
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
== END 2020-07-11 20:55 | disposition home or self-care (01) ==
LOC: JD.ED 17:57
DX: G47.00 Insomnia, unspecified (principal); R45.1 Restlessness and agitation; F41.9 Anxiety disorder, unspecified; R11.2 Nausea with vomiting, unspecified; J45.909 Unspecified asthma, uncomplicated; Z91.048 Other nonmedicinal substance allergy status; Z88.5 Allergy status to narcotic agent; Z88.6 Allergy status to analgesic agent; Z88.8 Allergy status to other drugs, medicaments and biological substances
CPT/HCPCS: 96372; 99283; A9270; J1630; 99284

== ENCOUNTER 2020-08-09 18:32 | Emergency (ER) | payer MEDICARE, MEDICAID ==
[2020-08-09 18:45] VITALS: BP 126/78; PULSE 88
--- NOTE | 2020-08-09 18:57 | EDM.PDOC ---
ED HPI GENERAL MEDICAL PROBLEM - General Chief Complaint: Abdominal Pain Stated Complaint: PAIN WHEN EATING Time Seen by Provider: 08/09/20 18:57 - History of Present Illness INITIAL COMMENTS - FREE TEXT/NARRATIVE: 50-year-old female presents the emergency room with abdominal pain. This is been going on for many months now. Every time she eats or drinks some she has discomfort going straight from her mouth down to her bellybutton. This is not associated with nausea vomiting diarrhea. She is done had associated fevers or chills. This last spring the patient had endoscopy that was unrevealing. This evening the patient ate a few [place] fries and a few bites of her sandwich and had significant discomfort from this. The patient does not wake up with reflux or heartburn. Abdominal Pain Score (Numeric/FACES): 9 - Related Data Allergies Allergy/AdvReac Type Severity Reaction Status Date / Time cat dander Allergy Severe Shortness Verified 08/09/20 18:45 of Breath dog dander Allergy Severe Shortness Verified 08/09/20 18:45 of Breath oxycodone [From Percocet] Allergy Severe Cannot Verified 08/09/20 18:45 Remember prochlorperazine Allergy Severe Cannot Verified 08/09/20 18:45 [From Compazine] Remember acetaminophen [From Percocet] AdvReac Severe Nausea and Verified 08/09/20 18:45 Vomiting aspirin [From Percodan] AdvReac Severe Nausea and Verified 08/09/20 18:45 Vomiting oxycodone HCl [From Percocet] AdvReac Severe Nausea and Verified 08/09/20 18:45 Vomiting oxycodone terephthalate AdvReac Severe Nausea and Verified 08/09/20 18:45 [From Percodan] Vomiting prochlorperazine edisylate AdvReac Severe Seizure Verified 08/09/20 18:45 [From Compazine] prochlorperazine maleate AdvReac Severe Seizure Verified 08/09/20 18:45 [From Compazine] Home Meds: Home Meds Budesonide/Formoterol Fumarate [Symbicort 160-4.5 Mcg Inhaler] 2 puff INH ASDIRECTED PRN 05/19/19 [History] desogestreL-ethinyl estradioL [Maximinoeber 28 Day Tablet] 1 tab PO DAILY 10/10/19 [History] Omeprazole 40 mg PO QAM #30 capsule. 08/09/20 [Rx] Sucralfate 1 gm PO ASDIRECTED #40 tablet 08/09/20 [Rx] Past Medical History HEENT History: Reports: None Other HEENT History: jaw surgery for underbite Cardiovascular History: Reports: None Respiratory History: Reports: Asthma Other Respiratory History: latent TB Gastrointestinal History: Reports: GERD Genitourinary History: Reports: UTI, Recurrent FLORAL ARRANGER History: Reports: Other (See Below) Other FLORAL ARRANGER History: states has heavy periods, IUD Musculoskeletal History: Reports: None Neurological History: Reports: Head Trauma Other Neuro History: states has post-concussive disorder. 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 that put her at high risk for stroke or seizure Psychiatric History: Reports: Anxiety, Bipolar, Depression, Other (See Below) Other Psychiatric History: insominia Endocrine/Metabolic History: Reports: Hypothyroidism Hematologic History: Reports: Anemia Immunologic History: Reports: None Oncologic (Cancer) History: Reports: None Dermatologic History: Reports: Urticaria Other Dermatologic History: Itching for past 6 months - Infectious Disease History Infectious Disease History: Reports: Chicken Pox Other Infectious Disease History: latent TB - Past Surgical History HEENT Surgical History: Reports: Oral Surgery, Other (See Below) Other HEENT Surgeries/Procedures: Jaw Surgery, dental implants. GI Surgical History: Reports: Colonoscopy, EGD Other GI Surgeries/Procedures: biopsies with procedures. Female Surgical History: Reports: Breast Implant, D&C Other Female Surgeries/Procedures: IUD Neurological Surgical History: Reports: Other (See Below) Other Neurological Surgeries/Procedures: brain angiogram Social & Family History - Family History Family Medical History: No Pertinent Family History - Tobacco Use Tobacco Use Status *Q: Never Tobacco User - Caffeine Use Caffeine Use: Reports: Soda Other Caffeine Use: states hasn't had in over one week. - Recreational Drug Use Recreational Drug Use: No - Living Situation & Occupation Living situation: Reports: Single, with Family Occupation: Unemployed ED ROS GENERAL - Review of Systems Review Of Systems: See Below Constitutional: Reports: No Symptoms HEENT: Reports: No Symptoms Respiratory: Reports: No Symptoms Cardiovascular: Reports: No Symptoms GI/Abdominal: Reports: Abdominal Pain : Reports: No Symptoms Musculoskeletal: Reports: No Symptoms ED EXAM, GI/ABD - Physical Exam Exam: See Below Exam Limited By: No Limitations General Appearance: Alert, No Apparent Distress Throat/Mouth: Normal Inspection, Normal Lips, Normal Teeth, Normal Gums, Normal Oropharynx, Normal Voice, No Airway Compromise Head: Atraumatic, Normocephalic Neck: Normal Inspection, Supple, Non-Tender, Full Range of Motion. No: Lymphadenopathy (L), Lymphadenopathy (R) Respiratory/Chest: No Respiratory Distress, Lungs Clear, Normal Breath Sounds Cardiovascular: Regular Rate, Rhythm, No Edema, No Murmur GI/Abdominal Exam: Normal Bowel Sounds, Soft, Tender (Patient has tenderness in the epigastric area in the left upper quadrant no rigidity rebound or guarding appreciated) Back Exam: Normal Inspection. No: CVA Tenderness (L), CVA Tenderness (R) Extremities: Normal Inspection, No Pedal Edema Neurological: Alert, Oriented Psychiatric: Anxious Course - Vital Signs Last Recorded V/S: Last Vital Signs Temp 36.9 C 08/09/20 18:41 Pulse 88 08/09/20 18:41 Resp 20 08/09/20 18:41 BP 126/78 08/09/20 18:41 Pulse Ox 99 08/09/20 18:41 - Orders/Labs/Meds Orders: Active Orders 24 hr Category Date Time Status CORONAVIRUS COVID-19 PCR PHL Stat Lab 08/09/20 20:31 Received CULTURE URINE [RM] Stat Lab 08/09/20 19:55 Received UA W/MICROSCOPIC [URIN] Stat Lab 08/09/20 19:55 Results Labs: Laboratory Tests 08/09/20 08/09/20 08/09/20 Range/Units 19:45 19:45 19:55 WBC 5.74 (3.98-10.04) K/mm3 RBC 4.71 (3.98-5.22) M/mm3 Hgb 14.1 (11.2-15.7) gm/dl Hct 42.0 (34.1-44.9) % MCV 89.2 (79.4-94.8) fl MCH 29.9 (25.6-32.2) pg MCHC 33.6 (32.2-35.5) g/dl RDW Std Deviation 41.7 (36.4-46.3) fL Plt Count 318 (182-369) K/mm3 MPV 9.3 L (9.4-12.3) fl Neut % (Auto) 65.0 (34.0-71.1) % Lymph % (Auto) 21.4 (19.3-51.7) % [place] % (Auto) 9.9 (4.7-12.5) % Eos % (Auto) 2.8 (0.7-5.8) Baso % (Auto) 0.7 (0.1-1.2) % Neut # (Auto) 3.73 (1.56-6.13) K/mm3 Lymph # (Auto) 1.23 (1.18-3.74) K/mm3 [place] # (Auto) 0.57 H (0.24-0.36) K/mm3 Eos # (Auto) 0.16 (0.04-0.36) K/mm3 Baso # (Auto) 0.04 (0.01-0.08) K/mm3 Sodium 135 L (136-145) mEq/L Potassium 3.6 (3.5-5.1) mEq/L Chloride 102 (98-107) mEq/L Carbon Dioxide 25 (21-32) mEq/L Anion Gap 11.6 (5-15) BUN 8 (7-18) mg/dL Creatinine 0.9 (0.55-1.02) mg/dL Est Cr Clr Drug Dosing 77.11 mL/min Estimated GFR (MDRD) > 60 (>60) mL/min BUN/Creatinine Ratio 8.9 L (14-18) Glucose 104 (74-106) mg/dL Calcium 8.9 (8.5-10.1) mg/dL Total Bilirubin 0.3 (0.2-1.0) mg/dL AST 9 L (15-37) U/L ALT 23 (14-59) U/L Alkaline Phosphatase 71 (46-116) U/L Total Protein 7.5 (6.4-8.2) g/dl Albumin 3.4 (3.4-5.0) g/dl Globulin 4.1 gm/dL Albumin/Globulin Ratio 0.8 L (1-2) Lipase 154 (73-393) U/L Urine Color Yellow (Yellow) Urine Appearance Clear (Clear) Urine pH 7.0 (5.0-8.0) Ur Specific [place] 1.015 (1.005-1.030) Urine Protein Negative (Negative) Urine Glucose (UA) Negative (Negative) Urine Ketones Negative (Negative) Urine Occult Blood Trace-intact H (Negative) Urine Nitrite Negative (Negative) Urine Bilirubin Negative (Negative) Urine Urobilinogen 0.2 (0.2-1.0) Ur Leukocyte Esterase 1+ H (Negative) Meds: Medications Discontinued Medications Generic Name Dose Route Start Last Admin Trade Name Freq PRN Reason Stop Dose Admin Al Hydroxide/Mg Hydroxide 30 0 ml 08/09/20 19:19 08/09/20 20:00 ml/ Lidocaine HCl 15 ml PO 08/09/20 19:20 45 ml ONETIME ONE Administration - Re-Assessments/Exams Free Text/Narrative Re-Assessment/Exam: 08/09/20 21:13 Laboratory evaluation is unrevealing. The patient did not get much relief at all from the GI cocktail. Patient is somewhat frustrated and wants an immediate fix however that is not practical at this point at this point I will give the patient some Carafate have her take Protonix in about an hour or so and then start her on Carafate and Protonix as an outpatient and have her follow-up with her regular physician in 1 week Departure - Departure Time of Disposition: 21:14 Disposition: Home, Self-Care 01 Clinical Impression: Dyspepsia - Discharge Information Referrals: Madison Harvey MD [Primary Care Provider] - Forms: ED Department Discharge Additional Instructions: Return to the emergency room with any questions problems or worsening symptoms. Be sure and gargle with lots of water after using your Symbicort. You have been started on Carafate take this 4 times daily right at the beginning of breakfast lunch supper and at bedtime. Take your other medications at least 1 hour before or 2 hours after using the Carafate. You have also been started on omeprazole take this 1 hour before your morning meal. Follow-up with your regular healthcare provider in 1 week Sepsis Event Note (ED) - Evaluation Sepsis Screening Result: No Definite Risk - Focused Exam Vital Signs: Vital Signs Temp Pulse Resp BP Pulse Ox 08/09/20 18:41 36.9 C 88 20 126/78 99 - My Orders Last 24 Hours: My Active Orders 08/09/20 19:55 CULTURE URINE [RM] Stat UA W/MICROSCOPIC [URIN] Stat 08/09/20 20:31 CORONAVIRUS COVID-19 PCR PHL Stat - Assessment/Plan Last 24 Hours: My Active Orders 08/09/20 19:55 CULTURE URINE [RM] Stat UA W/MICROSCOPIC [URIN] Stat 08/09/20 20:31 CORONAVIRUS COVID-19 PCR PHL Stat
[2020-08-09] MEDS ORDERED: Alum Hydrox/Mag Hydrox/Simeth 30 ML, Lidocaine 2% 15 ML PO ONE ×2 (19:19)
[2020-08-09] MEDS ORDERED: Pantoprazole 40 MG Tab.CR PO ONE (21:14)
[2020-08-09] MEDS ORDERED: Sucralfate 1 GM Tab PO ONE (21:19)
[2020-08-09] MEDS ORDERED: Sucralfate 1 GM Tab PO SCH (22:00)
[2020-08-10] MEDS ORDERED: Pantoprazole 40 MG Tab.CR PO ONE (21:14)
== END 2020-08-09 21:44 | disposition home or self-care (01) ==
LOC: JD.ED 18:32
DX: R10.13 Epigastric pain (principal); J45.909 Unspecified asthma, uncomplicated; K21.9 Gastro-esophageal reflux disease without esophagitis; Z20.828 Contact with and (suspected) exposure to other viral communicable diseases; Z91.048 Other nonmedicinal substance allergy status; Z88.5 Allergy status to narcotic agent; Z88.6 Allergy status to analgesic agent; Z88.8 Allergy status to other drugs, medicaments and biological substances; Z79.899 Other long term (current) drug therapy
CPT/HCPCS: 36415; 80053; 81001; 83690; 85025; 87086; 99284; A9270; U0002; 99283

== ENCOUNTER 2020-08-31 06:29 | Emergency (ER) | payer MEDICARE, MEDICAID ==
[2020-08-31 06:51] VITALS: BP 107/74; PULSE 91
== END 2020-08-31 07:12 ==
LOC: JD.ED 06:29
DX: Z53.21 Procedure and treatment not carried out due to patient leaving prior to being seen by health care provider (principal)

== ENCOUNTER 2020-11-12 02:05 | Emergency (ER) | payer MEDICARE, MEDICAID ==
[2020-11-12 02:20] VITALS: BP 173/89; PULSE 120
[2020-11-12] MEDS ORDERED: methylPREDNISolone Sodium Succinate 125 MG/2 ML SDV IM ONE (02:34)
[2020-11-12] MEDS ORDERED: LORazepam 1 MG Tab PO ONE (02:34)
--- NOTE | 2020-11-12 02:41 | EDM.PDOC ---
ED HPI GENERAL MEDICAL PROBLEM - General Chief Complaint: Skin Complaint Stated Complaint: POSS RASH ON CHEST Time Seen by Provider: 11/12/20 02:10 Source of Information: Reports: Patient History Limitations: Reports: No Limitations - History of Present Illness INITIAL COMMENTS - FREE TEXT/NARRATIVE: The patient presents with a rash. She said the rash is between her breasts and it has been there for months. She has seen 5 to 6 different doctors. She saw dermatologists and allergists. No one can figure things out. She has been on oral steroids and topical medicines also and nothing helps. She has not been able to sleep soundly for 6 days. Tonight again she was woken up by the itching. Onset: Gradual Duration: Week(s): Location: Reports: Chest Quality: Reports: Burning Severity: Severe Improves with: Reports: None Worsens with: Reports: None Associated Symptoms: Reports: Rash. Denies: Chest Pain, Cough, Fever/Chills, Headaches, Nausea/Vomiting, Shortness of Breath - Related Data Allergies Allergy/AdvReac Type Severity Reaction Status Date / Time cat dander Allergy Severe Shortness Verified 11/12/20 02:21 of Breath dog dander Allergy Severe Shortness Verified 11/12/20 02:21 of Breath oxycodone [From Percocet] Allergy Severe Cannot Verified 11/12/20 02:21 Remember prochlorperazine Allergy Severe Cannot Verified 11/12/20 02:21 [From Compazine] Remember acetaminophen [From Percocet] AdvReac Severe Nausea and Verified 11/12/20 02:21 Vomiting aspirin [From Percodan] AdvReac Severe Nausea and Verified 11/12/20 02:21 Vomiting oxycodone HCl [From Percocet] AdvReac Severe Nausea and Verified 11/12/20 02:21 Vomiting oxycodone terephthalate AdvReac Severe Nausea and Verified 11/12/20 02:21 [From Percodan] Vomiting prochlorperazine edisylate AdvReac Severe Seizure Verified 11/12/20 02:21 [From Compazine] prochlorperazine maleate AdvReac Severe Seizure Verified 11/12/20 02:21 [From Compazine] Home Meds: Home Meds Budesonide/Formoterol Fumarate [Symbicort 160-4.5 Mcg Inhaler] 2 puff INH ASDIRECTED PRN 05/19/19 [History] desogestreL-ethinyl estradioL [Juleber 28 Day Tablet] 1 tab PO DAILY 10/10/19 [History] Omeprazole 40 mg PO QAM #30 capsule. 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 that put her at high risk for stroke or seizure Psychiatric History: Reports: Anxiety, Bipolar, Depression, Other (See Below) Other Psychiatric History: insominia Endocrine/Metabolic History: Reports: Hypothyroidism Hematologic History: Reports: Anemia Immunologic History: Reports: None Oncologic (Cancer) History: Reports: None Dermatologic History: Reports: Urticaria Other Dermatologic History: Itching for past 6 months - Infectious Disease History Infectious Disease History: Reports: Chicken Pox Other Infectious Disease History: latent TB - Past Surgical History Head Surgeries/Procedures: Reports: None HEENT Surgical History: Reports: Oral Surgery, Other (See Below) Other HEENT Surgeries/Procedures: Jaw Surgery, dental implants. Cardiovascular Surgical History: Reports: None Respiratory Surgical History: Reports: None GI Surgical History: Reports: Colonoscopy, EGD Other GI Surgeries/Procedures: biopsies with procedures. Female Surgical History: Reports: Breast Implant, D&C Other Female Surgeries/Procedures: IUD Endocrine Surgical History: Reports: None Neurological Surgical History: Reports: Other (See Below) Other Neurological Surgeries/Procedures: brain angiogram Musculoskeletal Surgical History: Reports: None Oncologic Surgical History: Reports: None Dermatological Surgical History: Reports: None Social & Family History - Family History Family Medical History: No Pertinent Family History - Tobacco Use Tobacco Use Status *Q: Never Tobacco User - Caffeine Use Caffeine Use: Reports: None Other Caffeine Use: states hasn't had in over one week. - Living Situation & Occupation Living situation: Reports: Single, with Family Occupation: Unemployed ED ROS GENERAL - Review of Systems Review Of Systems: See Below Constitutional: Reports: No Symptoms HEENT: Reports: No Symptoms Respiratory: Reports: No Symptoms Cardiovascular: Reports: No Symptoms Endocrine: Reports: No Symptoms GI/Abdominal: Reports: No Symptoms : Reports: No Symptoms Skin: Reports: Rash (to her chest) ED EXAM, SKIN/RASH Exam: See Below Exam Limited By: No Limitations General Appearance: Alert, No Apparent Distress Ears: Normal External Exam Nose: Normal Inspection Head: Atraumatic, Normocephalic Neck: Normal Inspection Respiratory/Chest: No Respiratory Distress Skin: Rash (macular papular rash to the mid chest) Course - Vital Signs Last Recorded V/S: Last Vital Signs Temp 97.8 F 11/12/20 02:16 Pulse 120 H 11/12/20 02:16 Resp 18 11/12/20 02:16 BP 173/89 H 11/12/20 02:16 Pulse Ox 98 11/12/20 02:16 - Orders/Labs/Meds Orders: Active Orders 24 hr Category Date Time Status LORazepam [Ativan] Med 11/12/20 02:34 Once 1 mg PO ONETIME ONE methylPREDNISolone Sod Succ [Solu-MEDROL] Med 11/12/20 02:34 Once 125 mg IM ONETIME ONE - Re-Assessments/Exams Free Text/Narrative Re-Assessment/Exam: 11/12/20 02:38 I will give her a shot of solu-medrol 125mg IM and some ativan so she can sleep. I will also get her a medrol dose pack and some lidocaine. Departure - Departure Time of Disposition: 02:40 Disposition: Home, Self-Care 01 Condition: Good Clinical Impression: Rash - Discharge Information *PRESCRIPTION DRUG MONITORING PROGRAM REVIEWED*: Not Applicable *COPY OF PRESCRIPTION DRUG MONITORING REPORT IN PATIENT SPENCER: Not Applicable Prescriptions: Lidocaine 4% [LMX 4] 1 gm .XX BEDTIME PRN #1 tube PRN Reason: Itching methylPREDNISolone [Medrol Dose Pack] 84 mg PO DAILY #1 dospk Additional Instructions: Take the medrol dose pack as prescribed. Try the lidocaine at night to see if it helps with the itching. Follow up with your doctor. Please return if you are worse. Sepsis Event Note (ED) - Evaluation Sepsis Screening Result: No Definite Risk - Focused Exam Vital Signs: Vital Signs Temp Pulse Resp BP Pulse Ox 11/12/20 02:16 97.8 F 120 H 18 173/89 H 98 - My Orders Last 24 Hours: My Active Orders 11/12/20 02:34 LORazepam [Ativan] 1 mg PO ONETIME ONE methylPREDNISolone Sod Succ [Solu-MEDROL] 125 mg IM ONETIME ONE - Assessment/Plan Last 24 Hours: My Active Orders 11/12/20 02:34 LORazepam [Ativan] 1 mg PO ONETIME ONE methylPREDNISolone Sod Succ [Solu-MEDROL] 125 mg IM ONETIME ONE
== END 2020-11-12 03:00 | disposition home or self-care (01) ==
LOC: JD.ED 02:05
DX: R21 Rash and other nonspecific skin eruption (principal); J45.909 Unspecified asthma, uncomplicated; K21.9 Gastro-esophageal reflux disease without esophagitis; Z79.899 Other long term (current) drug therapy; Z91.048 Other nonmedicinal substance allergy status; Z88.5 Allergy status to narcotic agent; Z88.6 Allergy status to analgesic agent; Z88.8 Allergy status to other drugs, medicaments and biological substances
CPT/HCPCS: 96372; 99282; A9270; J2930; 99283

== ENCOUNTER 2020-11-16 08:13 | Emergency (ER) | payer MEDICARE, MEDICAID ==
[2020-11-16 08:46] VITALS: BP 104/78; PULSE 83
--- NOTE | 2020-11-16 09:15 | EDM.PDOC ---
ED HPI GENERAL MEDICAL PROBLEM - General Chief Complaint: Skin Complaint Stated Complaint: RASH/SKIN COMPLAINT Time Seen by Provider: 11/16/20 08:58 Source of Information: Reports: Patient, RN Notes Reviewed - History of Present Illness INITIAL COMMENTS - FREE TEXT/NARRATIVE: 50 yr old female concerned about her breast implants which were placed around 20 yrs ago. More imediate concern is ongoing rash mid chest that has been present for many weeks, prior visit with that concern 4 days ago. Placed on medrol dose pack at that time, states rash is a little better but not going away. Bilateral Breast Pain Score (Numeric/FACES): 9 - Related Data Allergies Allergy/AdvReac Type Severity Reaction Status Date / Time cat dander Allergy Severe Shortness Verified 11/16/20 08:48 of Breath dog dander Allergy Severe Shortness Verified 11/16/20 08:48 of Breath oxycodone [From Percocet] Allergy Severe Cannot Verified 11/16/20 08:48 Remember prochlorperazine Allergy Severe Cannot Verified 11/16/20 08:48 [From Compazine] Remember acetaminophen [From Percocet] AdvReac Severe Nausea and Verified 11/16/20 08:48 Vomiting aspirin [From Percodan] AdvReac Severe Nausea and Verified 11/16/20 08:48 Vomiting oxycodone HCl [From Percocet] AdvReac Severe Nausea and Verified 11/16/20 08:48 Vomiting oxycodone terephthalate AdvReac Severe Nausea and Verified 11/16/20 08:48 [From Percodan] Vomiting prochlorperazine edisylate AdvReac Severe Seizure Verified 11/16/20 08:48 [From Compazine] prochlorperazine maleate AdvReac Severe Seizure Verified 11/16/20 08:48 [From Compazine] Home Meds: Home Meds Budesonide/Formoterol Fumarate [Symbicort 160-4.5 Mcg Inhaler] 2 puff INH ASDIRECTED PRN 05/19/19 [History] desogestreL-ethinyl estradioL [Juleber 28 Day Tablet] 1 tab PO DAILY 10/10/19 [History] Omeprazole 40 mg PO QAM #30 capsule. 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 that put her at high risk for stroke or seizure Psychiatric History: Reports: Anxiety, Bipolar, Depression, Other (See Below) Other Psychiatric History: insomnia Endocrine/Metabolic History: Reports: Hypothyroidism Hematologic History: Reports: Anemia Immunologic History: Reports: None Oncologic (Cancer) History: Reports: None Dermatologic History: Reports: Urticaria Other Dermatologic History: Itching for past 6 months - Infectious Disease History Infectious Disease History: Reports: Chicken Pox Other Infectious Disease History: latent TB - Past Surgical History HEENT Surgical History: Reports: Oral Surgery, Other (See Below) Other HEENT Surgeries/Procedures: Jaw Surgery, dental implants. GI Surgical History: Reports: Colonoscopy, EGD Other GI Surgeries/Procedures: biopsies with procedures. Female Surgical History: Reports: Breast Implant, D&C Other Female Surgeries/Procedures: IUD Neurological Surgical History: Reports: Other (See Below) Other Neurological Surgeries/Procedures: brain angiogram Social & Family History - Family History Family Medical History: No Pertinent Family History - Tobacco Use Tobacco Use Status *Q: Never Tobacco User Second Hand Smoke Exposure: No - Caffeine Use Caffeine Use: Reports: Soda Other Caffeine Use: states hasn't had in over one week. - Recreational Drug Use Recreational Drug Use: No - Living Situation & Occupation Living situation: Reports: Single, with Family Occupation: Unemployed ED ROS GENERAL - Review of Systems Review Of Systems: See Below Constitutional: Denies: Fever, Chills HEENT: Reports: No Symptoms Respiratory: Denies: Shortness of Breath Cardiovascular: Reports: No Symptoms GI/Abdominal: Reports: No Symptoms Musculoskeletal: Reports: No Symptoms Skin: Reports: Pruritis, Rash Neurological: Reports: No Symptoms Psychiatric: Reports: Anxiety ED EXAM, SKIN/RASH Exam: See Below General Appearance: Alert, Anxious Head: Atraumatic Neck: Supple Respiratory/Chest: No Respiratory Distress Extremities: Normal Inspection Neurological: Alert, No Motor/Sensory Deficits Skin: Warm, Dry, Rash (multiple raised excoriated erythematous maculopapular lesions anterior chest in between her breasts primarily. No breast mass or localized tenderness. ), Other (skin otherwise clear other than scattered excoriations) Course - Vital Signs Last Recorded V/S: Last Vital Signs Temp 97.7 F 11/16/20 08:43 Pulse 83 11/16/20 08:43 Resp 16 11/16/20 08:43 BP 104/78 11/16/20 08:43 Pulse Ox 99 11/16/20 08:43 - Re-Assessments/Exams Free Text/Narrative Re-Assessment/Exam: 11/16/20 11:11 Stephany RN with me at time of hx and exam. I am concerned with all of her scratching that there is a component of secondary infection. Will start on doxcycline. She states she is scheduled for a skin biopsy Thursday. 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 Prescription has been sent electronic to [facility]. Continue the medrol dose pack as prescribed. Lubriderm or similar non allergenic lotion 2 to 3 times daily as needed. Biopsy Thursday as planned. Continue to work with Ashley Che and your other medical providers. Sepsis Event Note (ED) - Evaluation Sepsis Screening Result: No Definite Risk - Focused Exam Vital Signs: Vital Signs Temp Pulse Resp BP Pulse Ox 11/16/20 08:43 97.7 F 83 16 104/78 99
== END 2020-11-16 09:35 | disposition home or self-care (01) ==
LOC: JD.ED 08:13
DX: L20.81 Atopic neurodermatitis (principal); J45.909 Unspecified asthma, uncomplicated; K21.9 Gastro-esophageal reflux disease without esophagitis; Z79.899 Other long term (current) drug therapy; Z91.048 Other nonmedicinal substance allergy status; Z88.5 Allergy status to narcotic agent; Z88.6 Allergy status to analgesic agent; Z88.8 Allergy status to other drugs, medicaments and biological substances
CPT/HCPCS: 99282; 99283

== ENCOUNTER 2020-12-16 02:11 | Emergency (ER) | payer MEDICARE, MEDICAID ==
[2020-12-16 02:39] VITALS: BP 139/91; PULSE 88
[2020-12-16] MEDS ORDERED: methylPREDNISolone Sodium Succinate 125 MG/2 ML SDV IM ONE (03:07)
[2020-12-16] MEDS ORDERED: LORazepam 1 MG Tab PO ONE (03:07)
--- NOTE | 2020-12-16 03:13 | EDM.PDOC ---
ED HPI GENERAL MEDICAL PROBLEM - General Chief Complaint: Skin Complaint Stated Complaint: rash on chest arms face getting worse Time Seen by Provider: 12/16/20 02:48 Source of Information: Reports: Patient, Family History Limitations: Reports: No Limitations - History of Present Illness INITIAL COMMENTS - FREE TEXT/NARRATIVE: This is a 50-year-old female. She has a rash on her chest and in her antecubital fossa's bilaterally for the last 2 months. She says she has been to multiple doctors who cannot seem to figure out what the rash is. She also has a lot of anxiety and difficulty in sleeping. She was seeing a couple family doctors but because of her many problems they no longer see her according to the patient. She has been to civil cad designer and preparation department supervisor but no one seems to know what is causing the rash. She is very anxious and she plays with her hair constantly and she touches her chest constantly while she is talking to me. She appears to be a keratinization of the skin where she is constantly touching it and rubbing it. She has tried all sorts of creams and lotions and hydrocortisone cream but everything she puts on there it sabillon because she constantly touches the skin and keeps it raw. I asked if she is ever talked to a counselor regarding her anxiety and continual fidgeting and she says there are no good. One of the doctors told her to stop her control because they think it is a reaction to it. She is not having sex with anyone so I suggest that she the medication at least momentarily to see if the rash does not get better. She says she will try this. She does have an appointment with an preparation department supervisor this coming week and I encouraged her to keep that appointment. Treatments LOG CUTTER: Reports: Other (see below) Other Treatments LOG CUTTER: creams and lotions Middle Chest Pain Score (Numeric/FACES): 10 - Related Data Allergies Allergy/AdvReac Type Severity Reaction Status Date / Time cat dander Allergy Severe Shortness Verified 12/16/20 02:39 of Breath dog dander Allergy Severe Shortness Verified 12/16/20 02:39 of Breath oxycodone [From Percocet] Allergy Severe Cannot Verified 12/16/20 02:39 Remember prochlorperazine Allergy Severe Cannot Verified 12/16/20 02:39 [From Compazine] Remember acetaminophen [From Percocet] AdvReac Severe Nausea and Verified 12/16/20 02:39 Vomiting aspirin [From Percodan] AdvReac Severe Nausea and Verified 12/16/20 02:39 Vomiting oxycodone HCl [From Percocet] AdvReac Severe Nausea and Verified 12/16/20 02:39 Vomiting oxycodone terephthalate AdvReac Severe Nausea and Verified 12/16/20 02:39 [From Percodan] Vomiting prochlorperazine edisylate AdvReac Severe Seizure Verified 12/16/20 02:39 [From Compazine] prochlorperazine maleate AdvReac Severe Seizure Verified 12/16/20 02:39 [From Compazine] Home Meds: Home Meds Budesonide/Formoterol Fumarate [Symbicort 160-4.5 Mcg Inhaler] 2 puff INH ASDIRECTED PRN 05/19/19 [History] desogestreL-ethinyl estradioL [Juleber 28 Day Tablet] 1 tab PO DAILY 10/10/19 [History] Omeprazole 40 mg PO QAM #30 capsule.dr 08/09/20 [Rx] Sucralfate 1 gm PO ASDIRECTED #40 tablet 08/09/20 [Rx] Lidocaine 4% [LMX 4] 1 gm .XX BEDTIME PRN #1 tube 11/12/20 [Rx] methylPREDNISolone [Medrol Dose Pack] 84 mg PO DAILY #1 dospk 11/12/20 [Rx] Past Medical History HEENT History: Reports: None Other HEENT History: jaw surgery for underbite Cardiovascular History: Reports: None Respiratory History: Reports: Asthma Other Respiratory History: latent TB Gastrointestinal History: Reports: GERD Genitourinary History: Reports: UTI, Recurrent HARVEST CONTRACTOR History: Reports: Other (See Below) Other HARVEST CONTRACTOR History: states has heavy periods, IUD Musculoskeletal History: Reports: None Neurological History: Reports: Head Trauma Other Neuro History: states has post-concussive disorder. 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 that put her at high risk for stroke or seizure Psychiatric History: Reports: Anxiety, Bipolar, Depression, Other (See Below) Other Psychiatric History: insomnia Endocrine/Metabolic History: Reports: Hypothyroidism Hematologic History: Reports: Anemia Immunologic History: Reports: None Oncologic (Cancer) History: Reports: None Dermatologic History: Reports: Urticaria Other Dermatologic History: Itching for past 6 months - Infectious Disease History Infectious Disease History: Reports: Chicken Pox Other Infectious Disease History: latent TB - Past Surgical History Head Surgeries/Procedures: Reports: None HEENT Surgical History: Reports: Oral Surgery, Other (See Below) Other HEENT Surgeries/Procedures: Jaw Surgery, dental implants. Cardiovascular Surgical History: Reports: None Respiratory Surgical History: Reports: None GI Surgical History: Reports: Colonoscopy, EGD Other GI Surgeries/Procedures: biopsies with procedures. Female Surgical History: Reports: Breast Implant, D&C Other Female Surgeries/Procedures: IUD Endocrine Surgical History: Reports: None Neurological Surgical History: Reports: Other (See Below) Other Neurological Surgeries/Procedures: brain angiogram Musculoskeletal Surgical History: Reports: None Oncologic Surgical History: Reports: None Dermatological Surgical History: Reports: None Social & Family History - Family History Family Medical History: No Pertinent Family History - Tobacco Use Tobacco Use Status *Q: Never Tobacco User - Caffeine Use Caffeine Use: Reports: Soda Other Caffeine Use: states hasn't had in over one week. - Recreational Drug Use Recreational Drug Use: No - Living Situation & Occupation Living situation: Reports: Single, with Family Occupation: Unemployed ED ROS GENERAL - Review of Systems Review Of Systems: See Below Constitutional: Denies: Fever, Chills HEENT: Reports: No Symptoms Respiratory: Denies: Shortness of Breath, Cough Cardiovascular: Reports: No Symptoms Endocrine: Reports: No Symptoms GI/Abdominal: Reports: No Symptoms : Reports: No Symptoms Musculoskeletal: Reports: No Symptoms Skin: Reports: Rash Neurological: Reports: No Symptoms Psychiatric: Reports: Anxiety Hematologic/Lymphatic: Reports: No Symptoms ED EXAM, SKIN/RASH Exam: See Below Exam Limited By: No Limitations General Appearance: Alert, WD/WN, No Apparent Distress, Anxious Eye Exam: Bilateral Eye: Normal Inspection Ears: Normal External Exam Nose: Normal Inspection Throat/Mouth: Normal Lips, Normal Voice, No Airway Compromise Head: Normocephalic Neck: Supple Respiratory/Chest: No Respiratory Distress Back Exam: Full Range of Motion Extremities: Normal Range of Motion, Other (The antecubital fossa's of both elbows she has scabs and a rash where she is constantly picking at them.) Neurological: Alert, Oriented Psychiatric: Anxious Skin: Other (A large patch of rash in her anterior chest down between her breasts. Again she is constantly touching it and rubbing it.) Characteristics: Papular, Fine, Other (Some scabbing to the rash as well where she is touching it all the time but there is no drainage or infection noted) Course - Vital Signs Last Recorded V/S: Last Vital Signs Temp 97.4 F 12/16/20 02:38 Pulse 88 12/16/20 02:38 Resp 22 H 12/16/20 02:38 BP 139/91 H 12/16/20 02:38 Pulse Ox 100 12/16/20 02:38 - Orders/Labs/Meds Orders: Active Orders 24 hr Category Date Time Status LORazepam [Ativan] Med 12/16/20 03:07 Once 2 mg PO ONETIME ONE Meds: Medications Discontinued Medications Generic Name Dose Route Start Last Admin Trade Name Freq PRN Reason Stop Dose Admin Methylprednisolone Sodium Succinate 125 mg 12/16/20 03:07 Methylprednisolone Sodium Succinate 125 Mg/2 Ml Sdv IM 12/16/20 03:08 ONETIME ONE - Re-Assessments/Exams Free Text/Narrative Re-Assessment/Exam: 12/16/20 03:14 I encouraged the patient to stop the control pills on the off chance it might be causing part of this rash. I am going to give her a Solu-Medrol shot and give her 2 mg of Ativan so she can go home and sleep. I encouraged her to follow-up with the preparation department supervisor for evaluation. I have also encouraged her not to touch the rash because that is what is causing it to continue. Departure - Departure Time of Disposition: 03:14 Disposition: Home, Self-Care 01 Condition: Fair Clinical Impression: Lichenification Anxiety disorder Qualifiers: Anxiety disorder type: generalized anxiety disorder Qualified Code(s): F41.1 - Generalized anxiety disorder - Discharge Information *PRESCRIPTION DRUG MONITORING PROGRAM REVIEWED*: Not Applicable *COPY OF PRESCRIPTION DRUG MONITORING REPORT IN PATIENT SPENCER: Not Applicable Instructions: Contact Dermatitis, [id number] Referrals: PCP,None [Primary Care Provider] - Additional Instructions: Stop your control on the off chance it might be causing some of this itching and rash, keep your hands off your rash because that is what is continuing it and its a process called lichenification, when you get home go to sleep because we gave you some Ativan to help you sleep, follow-up with the preparation department supervisor that you have scheduled for evaluation of your constant rash, I realized that any creams are going to make it burn because you keep touching that radiation making it raw, once you stop touching the rash and making it raw then probably hydrocortisone cream will help with the rash, return to the ER if needed Sepsis Event Note (ED) - Evaluation Sepsis Screening Result: No Definite Risk - Focused Exam Vital Signs: Vital Signs Temp Pulse Resp BP Pulse Ox 12/16/20 02:38 97.4 F 88 22 H 139/91 H 100 - My Orders Last 24 Hours: My Active Orders 12/16/20 03:07 LORazepam [Ativan] 2 mg PO ONETIME ONE - Assessment/Plan Last 24 Hours: My Active Orders 12/16/20 03:07 LORazepam [Ativan] 2 mg PO ONETIME ONE
== END 2020-12-16 03:45 | disposition home or self-care (01) ==
LOC: JD.ED 02:11
DX: L28.0 Lichen simplex chronicus (principal); F41.1 Generalized anxiety disorder; J45.909 Unspecified asthma, uncomplicated; K21.9 Gastro-esophageal reflux disease without esophagitis; Z91.048 Other nonmedicinal substance allergy status; Z88.5 Allergy status to narcotic agent; Z88.8 Allergy status to other drugs, medicaments and biological substances; Z88.6 Allergy status to analgesic agent; Z79.899 Other long term (current) drug therapy
CPT/HCPCS: 96372; 99283; A9270; J2930; 99284

== ENCOUNTER 2020-12-24 04:50 | Emergency (ER) | payer MEDICARE, MEDICAID ==
[2020-12-24 05:07] VITALS: BP 126/78; PULSE 98
[2020-12-24] MEDS ORDERED: Sodium Chloride 0.9% 10 ML Syringe FLUSH PRN (05:12)
[2020-12-24] MEDS ORDERED: methylPREDNISolone Sodium Succinate 40 MG/1 ML SDV IVPUSH ONE ×2 (05:16→05:56)
--- NOTE | 2020-12-24 05:17 | EDM.PDOC ---
ED HPI GENERAL MEDICAL PROBLEM - General Chief Complaint: Skin Complaint Stated Complaint: ITCHY NO SLEEP Time Seen by Provider: 12/24/20 04:53 Source of Information: Reports: Patient History Limitations: Reports: Other (Patient is psychotic and is unable to render a truly informative and focused history.) - History of Present Illness INITIAL COMMENTS - FREE TEXT/NARRATIVE: The patient has come in with a skin rash. She says she is itching and she cannot sleep. She has had a number of visits with exactly the same complaint. She is asking for a shot of steroids. Actually she is asking for "2 shots." She is also asking for Ativan. She does not report any fever dysuria or respiratory symptoms or any other symptom of acute medical illness though she talks and talks but does not present much of a focused history. - Related Data Allergies Allergy/AdvReac Type Severity Reaction Status Date / Time cat dander Allergy Severe Shortness Verified 12/24/20 05:07 of Breath dog dander Allergy Severe Shortness Verified 12/24/20 05:07 of Breath oxycodone [From Percocet] Allergy Unknown Cannot Verified 12/24/20 05:07 Remember prochlorperazine Allergy Unknown Cannot Verified 12/24/20 05:07 [From Compazine] Remember prochlorperazine edisylate AdvReac Severe Seizure Verified 12/24/20 05:07 [From Compazine] prochlorperazine maleate AdvReac Severe Seizure Verified 12/24/20 05:07 [From Compazine] acetaminophen [From Percocet] AdvReac Mild Nausea and Verified 12/24/20 05:07 Vomiting aspirin [From Percodan] AdvReac Mild Nausea and Verified 12/24/20 05:07 Vomiting oxycodone HCl [From Percocet] AdvReac Mild Nausea and Verified 12/24/20 05:07 Vomiting oxycodone terephthalate AdvReac Mild Nausea and Verified 12/24/20 05:07 [From Percodan] Vomiting Home Meds: Home Meds Budesonide/Formoterol Fumarate [Symbicort 160-4.5 Mcg Inhaler] 2 puff INH ASDIRECTED PRN 05/19/19 [History] Omeprazole 40 mg PO QAM #30 capsule. 08/09/20 [Rx] Sucralfate 1 gm PO ASDIRECTED #40 tablet 08/09/20 [Rx] Lidocaine 4% [LMX 4] 1 gm .XX BEDTIME PRN #1 tube 11/12/20 [Rx] Past Medical History HEENT History: Reports: None Other HEENT History: jaw surgery for underbite Cardiovascular History: Reports: None Respiratory History: Reports: Asthma Other Respiratory History: latent TB Gastrointestinal History: Reports: GERD Genitourinary History: Reports: UTI, Recurrent ANIMAL CONTROL SPECIALIST History: Reports: Other (See Below) Other ANIMAL CONTROL SPECIALIST History: states has heavy periods, IUD Musculoskeletal History: Reports: None Neurological History: Reports: Head Trauma Other Neuro History: states has post-concussive disorder. 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 that put her at high risk for stroke or seizure Psychiatric History: Reports: Anxiety, Bipolar, Depression, Other (See Below) Other Psychiatric History: insomnia Endocrine/Metabolic History: Reports: Hypothyroidism Hematologic History: Reports: Anemia Immunologic History: Reports: None Oncologic (Cancer) History: Reports: None Dermatologic History: Reports: Urticaria Other Dermatologic History: Itching for past 6 months - Infectious Disease History Infectious Disease History: Reports: Chicken Pox Other Infectious Disease History: latent TB - Past Surgical History Head Surgeries/Procedures: Reports: None HEENT Surgical History: Reports: Oral Surgery, Other (See Below) Other HEENT Surgeries/Procedures: Jaw Surgery, dental implants. Cardiovascular Surgical History: Reports: None Respiratory Surgical History: Reports: None GI Surgical History: Reports: Colonoscopy, EGD Other GI Surgeries/Procedures: biopsies with procedures. Female Surgical History: Reports: Breast Implant, D&C Other Female Surgeries/Procedures: IUD Endocrine Surgical History: Reports: None Neurological Surgical History: Reports: Other (See Below) Other Neurological Surgeries/Procedures: brain angiogram Musculoskeletal Surgical History: Reports: None Oncologic Surgical History: Reports: None Dermatological Surgical History: Reports: None Social & Family History - Family History Family Medical History: No Pertinent Family History - Tobacco Use Tobacco Use Status *Q: Never Tobacco User Second Hand Smoke Exposure: No - Caffeine Use Caffeine Use: Reports: Soda Other Caffeine Use: states hasn't had in over one week. - Recreational Drug Use Recreational Drug Use: No - Living Situation & Occupation Living situation: Reports: Single, with Family Occupation: Unemployed ED ROS GENERAL - Review of Systems Review Of Systems: Unable To Obtain (Patient is experiencing flight of ideas and is quite voluble and does not present any focused or meaningful review of systems) Reason Not Obtained: As above. ED EXAM, SKIN/RASH Exam: See Below Text/Narrative:: Exam the patient is alert and looks completely well. However she is quite active in the room. She is quite voluble. She talks and talks but does not give much information of value to the assessment. Head is normocephalic atraumatic. PERRLA EOMI. Neck is supple. Lungs are clear breath sounds are full and equal bilaterally. Heart is regular. Abdomen is soft nontender. No flank tenderness. No peripheral edema cyanosis or clubbing of the digits. Neurologically she is grossly intact with fluent speech, no weakness, moving all extremities, no motor or sensory deficit. Skin is warm and dry. There are areas of skin eruption, quite mild, bilaterally in the antecubital fossae as well as across the upper chest consistent with a m ild atopic dermatitis eruption Course - Vital Signs Text/Narrative:: The patient received 240 mg doses of Solu-Medrol IV. This is because she requested 2 doses so she got to small to moderate doses. She feels much better and feels that her itching is much less. She also received 2 mg of Ativan IV. Her mother is at bedside to drive her home. It is recommended that the patient follow-up with her primary and psychiatrist should it be possible to arrange. Last Recorded V/S: Last Vital Signs Temp 36.3 C 12/24/20 05:06 Pulse 98 12/24/20 05:06 Resp 20 12/24/20 05:06 BP 126/78 12/24/20 05:06 Pulse Ox 100 12/24/20 05:06 - Orders/Labs/Meds Orders: Active Orders 24 hr Category Date Time Status Peripheral IV Care [RC] . DIRECTED Care 12/24/20 05:13 Active Sodium Chloride 0.9% [Saline Flush] Med 12/24/20 05:12 Active 10 ml FLUSH ASDIRECTED PRN Peripheral IV Insertion Adult [OM.PC] Stat Oth 12/24/20 05:13 Ordered Medication Orders Sodium Chloride (Sodium Chloride 0.9% 10 Ml Syringe) 10 ml FLUSH ASDIRECTED PRN PRN Reason: Keep Vein Open Last Admin: 12/24/20 05:23 Dose: 10 ml Documented by: TEODORO Meds: Medications Generic Name Dose Route Start Last Admin Trade Name Freq PRN Reason Stop Dose Admin Sodium Chloride 10 ml 12/24/20 05:12 12/24/20 05:23 Sodium Chloride 0.9% 10 Ml Syringe FLUSH 10 ml ASDIRECTED PRN Administration Keep Vein Open Discontinued Medications Generic Name Dose Route Start Last Admin Trade Name Freq PRN Reason Stop Dose Admin Lorazepam 2 mg 12/24/20 05:56 Lorazepam 2 Mg/Ml Sdv IVPUSH 12/24/20 05:57 ONETIME ONE Methylprednisolone Sodium Succinate 40 mg 12/24/20 05:16 12/24/20 05:23 Methylprednisolone Sodium Succinate 40 Mg/1 Ml Sdv IVPUSH 12/24/20 05:17 40 mg ONETIME ONE Administration Methylprednisolone Sodium Succinate 40 mg 12/24/20 05:56 Methylprednisolone Sodium Succinate 40 Mg/1 Ml Sdv IVPUSH 12/24/20 05:57 ONETIME ONE Departure - Departure Time of Disposition: 06:02 Disposition: Home, Self-Care 01 Condition: Good Clinical Impression: Atopic dermatitis Qualifiers: Atopic dermatitis type: atopic neurodermatitis Qualified Code(s): L20.81 - At opic neurodermatitis Insomnia Qualifiers: Insomnia type: unspecified Qualified Code(s): G47.00 - Insomnia, unspecified - Discharge Information Referrals: PCP,None [Primary Care Provider] - Forms: ED Department Discharge Additional Instructions: You have been treated for an atopic dermatitis. If you can arrange to see your primary and get a referral to dermatology that would be good. Recommend follow- up closely with your primary and any specialist that your primary may wish to refer you to. Do not hesitate to return to the emergency department for any concern that you may have. Sepsis Event Note (ED) - Evaluation Sepsis Screening Result: No Definite Risk - Focused Exam Vital Signs: Vital Signs Temp Pulse Resp BP Pulse Ox 12/24/20 05:06 36.3 C 98 20 126/78 100 - My Orders Last 24 Hours: My Active Orders 12/24/20 05:12 Sodium Chloride 0.9% [Saline Flush] 10 ml FLUSH ASDIRECTED PRN 12/24/20 05:13 Peripheral IV Care [RC] . DIRECTED Peripheral IV Insertion Adult [OM.PC] Stat - Assessment/Plan Last 24 Hours: My Active Orders 12/24/20 05:12 Sodium Chloride 0.9% [Saline Flush] 10 ml FLUSH ASDIRECTED PRN 12/24/20 05:13 Peripheral IV Care [RC] . DIRECTED Peripheral IV Insertion Adult [OM.PC] Stat
[2020-12-24] MEDS ORDERED: LORazepam 2 MG/ML SDV IVPUSH ONE (05:56)
== END 2020-12-24 06:20 | disposition home or self-care (01) ==
LOC: JD.ED 04:50
DX: L20.81 Atopic neurodermatitis (principal); G47.00 Insomnia, unspecified; J45.909 Unspecified asthma, uncomplicated; K21.9 Gastro-esophageal reflux disease without esophagitis; Z91.048 Other nonmedicinal substance allergy status; Z88.5 Allergy status to narcotic agent; Z88.8 Allergy status to other drugs, medicaments and biological substances; Z88.6 Allergy status to analgesic agent; Z79.899 Other long term (current) drug therapy
CPT/HCPCS: 96374; 96375; 96376; 99282-25; 99284; J2060; J2920

== ENCOUNTER 2020-12-30 06:06 | Emergency (ER) | payer MEDICARE, MEDICAID ==
[2020-12-30 06:16] VITALS: BP 126/86; PULSE 94
--- NOTE | 2020-12-30 06:34 | EDM.PDOC ---
ED HPI GENERAL MEDICAL PROBLEM - General Chief Complaint: ENT Problem Stated Complaint: GLAND ON RT EYELID IS PAINFUL Time Seen by Provider: 12/30/20 06:28 Source of Information: Reports: Patient History Limitations: Reports: No Limitations - History of Present Illness INITIAL COMMENTS - FREE TEXT/NARRATIVE: This is a 50-year-old female. About 3 weeks ago she went to see an eye doctor because she had some redness on her eyelid and a very small bump. She was diagnosed with a sebaceous gland stye. She was given some Neosporin cream and told that it would make it better but it has not gotten bigger. Now she has a larger bump with a rolle on the stye itself. She states she has not been pinching it or messing with it and she has not been using warm compresses. I am going to put her on some Bactrim DS for 7 days and I encouraged her to use warm compresses and I will give her a name of an teller manager. Right Eyelid Pain Score (Numeric/FACES): 4 - Related Data Allergies Allergy/AdvReac Type Severity Reaction Status Date / Time cat dander Allergy Severe Shortness Verified 12/30/20 06:16 of Breath dog dander Allergy Severe Shortness Verified 12/30/20 06:16 of Breath oxycodone [From Percocet] Allergy Unknown Cannot Verified 12/30/20 06:16 Remember prochlorperazine Allergy Unknown Cannot Verified 12/30/20 06:16 [From Compazine] Remember prochlorperazine edisylate AdvReac Severe Seizure Verified 12/30/20 06:16 [From Compazine] prochlorperazine maleate AdvReac Severe Seizure Verified 12/30/20 06:16 [From Compazine] acetaminophen [From Percocet] AdvReac Mild Nausea and Verified 12/30/20 06:16 Vomiting aspirin [From Percodan] AdvReac Mild Nausea and Verified 12/30/20 06:16 Vomiting oxycodone HCl [From Percocet] AdvReac Mild Nausea and Verified 12/30/20 06:16 Vomiting oxycodone terephthalate AdvReac Mild Nausea and Verified 12/30/20 06:16 [From Percodan] Vomiting Home Meds: Home Meds Budesonide/Formoterol Fumarate [Symbicort 160-4.5 Mcg Inhaler] 2 puff INH ASDIRECTED PRN 05/19/19 [History] Crisaborole [Eucrisa] 1 mg TOP BEDTIME PRN 12/30/20 [History] Dupilumab [Dupixent Syringe] 300 mg SUBCUT ASDIRECTED 12/30/20 [History] Sulfamethoxazole/Trimethoprim [Bactrim Ds Tablet] 1 each PO BID #14 tablet 12/30/20 [Rx] Past Medical History HEENT History: Reports: None Other HEENT History: jaw surgery for underbite Cardiovascular History: Reports: None Respiratory History: Reports: Asthma Other Respiratory History: latent TB Gastrointestinal History: Reports: GERD Genitourinary History: Reports: UTI, Recurrent WASTE MANAGEMENT SPECIALIST History: Reports: Other (See Below) Other WASTE MANAGEMENT SPECIALIST History: states has heavy periods, IUD Musculoskeletal History: Reports: None Neurological History: Reports: Head Trauma Other Neuro History: states has post-concussive disorder. 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 that put her at high risk for stroke or seizure Psychiatric History: Reports: Anxiety, Bipolar, Depression, Other (See Below) Other Psychiatric History: insomnia Endocrine/Metabolic History: Reports: Hypothyroidism Hematologic History: Reports: Anemia Immunologic History: Reports: None Oncologic (Cancer) History: Reports: None Dermatologic History: Reports: Urticaria Other Dermatologic History: Itching for past 6 months - Infectious Disease History Infectious Disease History: Reports: Chicken Pox Other Infectious Disease History: latent TB - Past Surgical History Head Surgeries/Procedures: Reports: None HEENT Surgical History: Reports: Oral Surgery, Other (See Below) Other HEENT Surgeries/Procedures: Jaw Surgery, dental implants. Cardiovascular Surgical History: Reports: None Respiratory Surgical History: Reports: None GI Surgical History: Reports: Colonoscopy, EGD Other GI Surgeries/Procedures: biopsies with procedures. Female Surgical History: Reports: Breast Implant, D&C Other Female Surgeries/Procedures: IUD Endocrine Surgical History: Reports: None Neurological Surgical History: Reports: Other (See Below) Other Neurological Surgeries/Procedures: brain angiogram Musculoskeletal Surgical History: Reports: None Oncologic Surgical History: Reports: None Dermatological Surgical History: Reports: None Social & Family History - Family History Family Medical History: No Pertinent Family History - Tobacco Use Tobacco Use Status *Q: Never Tobacco User - Caffeine Use Caffeine Use: Reports: None Other Caffeine Use: states hasn't had in over one week. - Recreational Drug Use Recreational Drug Use: No - Living Situation & Occupation Living situation: Reports: Single, with Family Occupation: Unemployed ED ROS ENT - Review of Systems Review Of Systems: See Below Constitutional: Denies: Fever, Chills HEENT: Reports: Other (As per HPI) Respiratory: Reports: No Symptoms Cardiovascular: Reports: No Symptoms Endocrine: Reports: No Symptoms GI/Abdominal: Reports: No Symptoms : Reports: No Symptoms Musculoskeletal: Reports: No Symptoms Skin: Reports: No Symptoms Neurological: Reports: No Symptoms Psychiatric: Reports: No Symptoms Hematologic/Lymphatic: Reports: No Symptoms ED EXAM, ENT - Physical Exam Exam: See Below Exam Limited By: No Limitations General Appearance: Alert, WD/WN, No Apparent Distress Eye Exam: Bilateral Eye: Normal Inspection, Other (Eyelid has a stye in the upper lid midway.) Ears: Normal External Exam Nose: Normal Inspection Mouth/Throat: Normal Inspection, Normal Lips Head: Normocephalic Neck: Supple Respiratory/Chest: No Respiratory Distress Back: Normal Inspection, Full Range of Motion Extremities: Normal Inspection, Normal Range of Motion Neurological: Alert, Oriented Psychiatric: Anxious Skin: Warm, Dry Course - Vital Signs Last Recorded V/S: Last Vital Signs Temp 98.2 F 12/30/20 06:12 Pulse 94 12/30/20 06:12 Resp 18 12/30/20 06:12 BP 126/86 12/30/20 06:12 Pulse Ox 100 12/30/20 06:12 Departure - Departure Time of Disposition: 06:31 Disposition: Home, Self-Care 01 Condition: Good Clinical Impression: Hordeolum externum (stye) Qualifiers: Laterality: right Eyelid: upper Qualified Code(s): H00.011 - Hordeolum externum right upper eyelid - Discharge Information *PRESCRIPTION DRUG MONITORING PROGRAM REVIEWED*: Not Applicable *COPY OF PRESCRIPTION DRUG MONITORING REPORT IN PATIENT SPENCER: Not Applicable Prescriptions: Sulfamethoxazole/Trimethoprim [Bactrim Ds Tablet] 1 each PO BID #14 tablet Instructions: Stye Referrals: Nathanael Schmidt MD [Ordering Only Provider] - Additional Instructions: Use warm compresses to your eyelid 4 times a day to help this stye open up and drain, get the antibiotics start taking them twice a day to help with the infection, if it does not open and drain in the next 2 to 3 days you need to call Dr. Schmidt who is at the [facility] and make an appointment for him to missy the stye if that is what is needed, return to the ER if needed. Sepsis Event Note (ED) - Evaluation Sepsis Screening Result: No Definite Risk - Focused Exam Vital Signs: Vital Signs Temp Pulse Resp BP Pulse Ox 12/30/20 06:12 98.2 F 94 18 126/86 100
== END 2020-12-30 06:43 | disposition home or self-care (01) ==
LOC: JD.ED 06:06
DX: H00.011 Hordeolum externum right upper eyelid (principal); J45.909 Unspecified asthma, uncomplicated; Z91.048 Other nonmedicinal substance allergy status; Z88.5 Allergy status to narcotic agent; Z88.8 Allergy status to other drugs, medicaments and biological substances; Z88.6 Allergy status to analgesic agent
CPT/HCPCS: 99282; 99283

== ENCOUNTER 2021-03-31 02:29 | Emergency (ER) | payer MEDICARE, MEDICAID ==
[2021-03-31 02:48] VITALS: BP 125/80; PULSE 85
[2021-03-31] MEDS ORDERED: HYDROmorphone 1 MG/ML Syringe IM ONE (03:04)
--- NOTE | 2021-03-31 03:11 | EDM.PDOC ---
ED HPI GENERAL MEDICAL PROBLEM - General Chief Complaint: ENT Problem Stated Complaint: NOSE SURGERY THURSDAY PAIN AND WEAK Time Seen by Provider: 03/31/21 02:40 Source of Information: Reports: Patient, Family (Mother) History Limitations: Reports: No Limitations - History of Present Illness INITIAL COMMENTS - FREE TEXT/NARRATIVE: Ms. Raymundo is a pleasant 50-year-old woman who now presents to the ED stating that she underwent surgical repair of a deviated septum 2 days ago, this past 03/29/2021, at . Both an autism teacher and plastic surgeon were involved in the case. She was discharged home with a prescription for 12 tablets of [place], and, according to her discharge papers, the recommendation that she take ibuprofen and/or acetaminophen. The patient states that she took 2 tablets of [place] yesterday, but then flushed with the remaining 10 tablets down the toilet, because the 2 tablets of [place] did not work. She now presents the ED stating that she has severe nasal pain. She would like me to give her something to treat her pain, or, alternatively, something to put her to sleep. She states that she does not ordinarily take anything for insomnia, because "nothing works". She states that she took 3 tablets of acetaminophen at 22:00 last night; she does not know if it was regular strength or extra strength. She has not taken any ibuprofen. Here in the ED, the patient is found to be hemodynamically stable, afebrile, saturating 97% on room air. She appears to be somewhat manic, which is normal for her. She does not appear to be in acute distress. Other than her nasal pain, the patient denies having a recent fever, chills, sore throat, ear pain, nasal or sinus congestion, cough, dyspnea, chest pain, palpitations, nausea, vomiting, constipation, diarrhea, abdominal pain, urinary symptoms, recent weight gain or weight loss, recent bloody bowel movements or black bowel movements, recent joint aches, headaches, or rashes. The patient's PCP is Dr. Luisana Iverson. Her Proof Operator is Dr. Derek Gonzáles. Her Plastic Surgeon is Dr. Justa Zavala. Her Car Body Mechanic is Dr. Lady Friend. Her Neurologist is Dr. Vasiliy Christie. Her Neurosurgeon is Dr. Pro Hernandez. Her Pocket Cutter is Dr. Isiah Mays. Treatments GAS WELL PUMPER: Reports: Acetaminophen, Other (see below) Other Treatments GAS WELL PUMPER: hydrocodone Nose Pain Score (Numeric/FACES): 9 - Related Data Allergies Allergy/AdvReac Type Severity Reaction Status Date / Time cat dander Allergy Severe Shortness Verified 03/31/21 02:48 of Breath dog dander Allergy Severe Shortness Verified 03/31/21 02:48 of Breath oxycodone [From Percocet] Allergy Unknown Cannot Verified 03/31/21 02:48 Remember prochlorperazine Allergy Unknown Cannot Verified 03/31/21 02:48 [From Compazine] Remember prochlorperazine edisylate AdvReac Severe Seizure Verified 03/31/21 02:48 [From Compazine] prochlorperazine maleate AdvReac Severe Seizure Verified 03/31/21 02:48 [From Compazine] acetaminophen [From Percocet] AdvReac Mild Nausea and Verified 03/31/21 02:48 Vomiting aspirin [From Percodan] AdvReac Mild Nausea and Verified 03/31/21 02:48 Vomiting oxycodone HCl [From Percocet] AdvReac Mild Nausea and Verified 03/31/21 02:48 Vomiting oxycodone terephthalate AdvReac Mild Nausea and Verified 03/31/21 02:48 [From Percodan] Vomiting Home Meds: Home Meds . [No Known Home Meds] 03/31/21 [History] Past Medical History Respiratory History: Reports: Asthma (suspected, not PFT-tested) Gastrointestinal History: Reports: GERD (untreated) MAPPING SPECIALIST History: Reports: Other (See Below) (Mirena IUD) Neurological History: Reports: Head Trauma Psychiatric History: Reports: Anxiety (untreated), Bipolar (untreated), Depression (untreated), Other (See Below) (Insomnia - untreated) - Infectious Disease History Infectious Disease History: Reports: Chicken Pox - Past Surgical History HEENT Surgical History: Reports: Naso-Sinus Surgery (deviated septum 03/29/2021), Oral Surgery (dental extractions, implants), Other (See Below) (Mandible surgery to correct underbite) GI Surgical History: Reports: Colonoscopy (x 2), EGD (x 2) Other GI Surgeries/Procedures: biopsies with procedures. Female Surgical History: Reports: Breast Implant, D&C (x 3) Social & Family History - Tobacco Use Tobacco Use Status *Q: Never Tobacco User Second Hand Smoke Exposure: No - Caffeine Use Caffeine Use: Reports: None Other Caffeine Use: states hasn't had in over one week. - Alcohol Use Alcohol Use History: Yes Alcohol Use Frequency: Rarely - Recreational Drug Use Recreational Drug Use: No - Living Situation & Occupation Living situation: Reports: Single, with Family Occupation: Unemployed ED ROS ENT - Review of Systems Review Of Systems: Comprehensive ROS is negative, except as noted in HPI. ED EXAM, ENT - Physical Exam Exam: See Below Exam Limited By: No Limitations General Appearance: Alert, WD/WN, No Apparent Distress Eye Exam: Bilateral Eye: EOMI, Normal Inspection Ears: Normal External Exam, Hearing Grossly Normal Nose: Other (There is a splint over the nose, with gauze taped across the nostrils. These were not removed. Some bloody mucus is visible within both nostrils.) Mouth/Throat: Normal Inspection, Normal Gums, Normal Lips, Normal Oropharynx (no posterior oropharyngeal blood), Normal Teeth Head: Atraumatic, Normocephalic Neck: Normal Inspection, Supple, Non-Tender, Full Range of Motion. No: Lymphadenopathy (L), Lymphadenopathy (R) Course - Vital Signs Last Recorded V/S: Last Vital Signs Temp 36.6 C 03/31/21 02:42 Pulse 85 03/31/21 02:42 Resp 16 03/31/21 02:42 BP 125/80 03/31/21 02:42 Pulse Ox 97 03/31/21 02:42 - Orders/Labs/Meds Meds: Medications Discontinued Medications Generic Name Dose Route Start Last Admin Trade Name Ezioq PRN Reason Stop Dose Admin Hydromorphone HCl 1 mg 03/31/21 03:04 03/31/21 03:13 Hydromorphone 1 Mg/Ml Syringe IM 03/31/21 03:05 1 mg ONETIME ONE Administration - Re-Assessments/Exams Free Text/Narrative Re-Assessment/Exam: 03/31/21 03:05 As above, the patient underwent surgery for a deviated septum on Thursday, and was prescribed 12 tablets of [place]. She states that she took 2 tablets yesterday, which she states did not work to treat her pain, therefore she flushed the remaining 10 down the toilet. She now presents with 9/10 pain. I have ordered 1 mg of IM Dilaudid, however, I explained to the patient that I will not be prescribing any opioids, and she should not return to the ED for continued pain, as additional opioids will not be offered to her. I recommended that she start taking 600 mg of ibuprofen every 8 hours, [id number]. If that is inadeq uate to treat her pain, she will need to talk with one of her surgeons on Thursday. Departure - Departure Time of Disposition: 03:07 Disposition: Home, Self-Care 01 Condition: Good Clinical Impression: Postoperative pain - Discharge Information *PRESCRIPTION DRUG MONITORING PROGRAM REVIEWED*: Not Applicable *COPY OF PRESCRIPTION DRUG MONITORING REPORT IN PATIENT SPENCER: Not Applicable Instructions: Pain Relief Before and After Surgery Referrals: Luisana Iverson MD [Primary Care Provider] - Justa Zavala MD [Ordering Only Provider] - Derek Gonzáles MD [Ordering Only Provider] - Lady Friend MD [Ordering Only Provider] - Vasiliy Christie MD [Ordering Only Provider] - Isiah Mays MD [Ordering Only Provider] - Pro Hernandez MD [Ordering Only Provider] - Forms: ED Department Discharge Additional Instructions: You were seen in the emergency room for nasal pain following surgical repair of a deviated septum on Thursday, after flushing your pain medications down the toilet. You were given a single intramuscular dose of Dilaudid in the ER. Going forward, we recommend that you take [id number] ibuprofen, 3 tablets (600 mg) every 8 hours, [id number]. You may also take [id number] acetaminophen (Tylenol), 2 tablets every 4-6 hours, as needed for breakthrough pain. As discussed, it is not appropriate for the emergency room to continue to give you pain medication. If you are still having pain despite taking ibuprofen and acetaminophen, you need to contact one of your surgeons on Thursday morning. If any other problems, please do not hesitate to return to the ER. Sepsis Event Note (ED) - Evaluation Sepsis Screening Result: No Definite Risk - Focused Exam Vital Signs: Vital Signs Temp Pulse Resp BP Pulse Ox 03/31/21 02:42 36.6 C 85 16 125/80 97
== END 2021-03-31 03:20 | disposition home or self-care (01) ==
LOC: JD.ED 02:29
DX: G89.18 Other acute postprocedural pain (principal); J34.89 Other specified disorders of nose and nasal sinuses
CPT/HCPCS: 96372; 99283; J1170

== ENCOUNTER 2021-07-07 03:43 | Emergency (ER) | payer MEDICARE, MEDICAID ==
[2021-07-07 03:57] VITALS: BP 151/100; PULSE 94
[2021-07-07] MEDS ORDERED: Ketorolac 15 MG/ML SDV IM ONE (04:45)
--- NOTE | 2021-07-07 04:45 | EDM.PDOC ---
ED HPI GENERAL MEDICAL PROBLEM - General Chief Complaint: General Stated Complaint: ISSUES AFTER NOSE SURGERY Time Seen by Provider: 07/07/21 04:45 Source of Information: Reports: Patient History Limitations: Reports: No Limitations - History of Present Illness INITIAL COMMENTS - FREE TEXT/NARRATIVE: Patient is a 51-year-old female presenting to the emergency room with a chief complaint of nasal pain. Patient states she had a rhinoplasty performed on March [id number] and has had issues with it ever since. She has not seen her surgeon since April 05 when the splints were removed but states that she has had continued pain, discomfort, and feels that they have ignored her concerns. Patient denies any bleeding from the nose but has noticed some clearish discharge. She states she has had a shot of Dilaudid in the past which has not helped her pain at all. She reports recently, she has very little energy use unable to get out of bed. Furthermore, she is unable to sleep and she feels extremely fatigued. Patient states she cannot get the vaccine because she will get all of the side effects. And she cannot get Covid because she will . Denies any difficulty breathing, chest pain, vomiting. Nose Pain Score (Numeric/FACES): 7 - Related Data Allergies Allergy/AdvReac Type Severity Reaction Status Date / Time cat dander Allergy Severe Shortness Verified 07/07/21 03:58 of Breath dog dander Allergy Severe Shortness Verified 07/07/21 03:58 of Breath oxycodone [From Percocet] Allergy Unknown Cannot Verified 07/07/21 03:58 Remember prochlorperazine Allergy Unknown Cannot Verified 07/07/21 03:58 [From Compazine] Remember prochlorperazine edisylate AdvReac Severe Seizure Verified 07/07/21 03:58 [From Compazine] prochlorperazine maleate AdvReac Severe Seizure Verified 07/07/21 03:58 [From Compazine] acetaminophen [From Percocet] AdvReac Mild Nausea and Verified 07/07/21 03:58 Vomiting aspirin [From Percodan] AdvReac Mild Nausea and Verified 07/07/21 03:58 Vomiting oxycodone HCl [From Percocet] AdvReac Mild Nausea and Verified 07/07/21 03:58 Vomiting oxycodone terephthalate AdvReac Mild Nausea and Verified 07/07/21 03:58 [From Percodan] Vomiting Home Meds: Home Meds . [No Known Home Meds] 03/31/21 [History] Past Medical History HEENT History: Reports: None Other HEENT History: jaw surgery for underbite Cardiovascular History: Reports: None Respiratory History: Reports: Asthma Other Respiratory History: latent TB Gastrointestinal History: Reports: GERD Genitourinary History: Reports: UTI, Recurrent CONFERENCE CENTER COORDINATOR History: Reports: Other (See Below) Other CONFERENCE CENTER COORDINATOR History: states has heavy periods, IUD Musculoskeletal History: Reports: None Neurological History: Reports: Head Trauma Other Neuro History: states has post-concussive disorder. 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 that put her at high risk for stroke or seizure Psychiatric History: Reports: Anxiety, Bipolar, Depression, Other (See Below) Other Psychiatric History: insomnia Endocrine/Metabolic History: Reports: Hypothyroidism Hematologic History: Reports: Anemia Immunologic History: Reports: None Oncologic (Cancer) History: Reports: None Dermatologic History: Reports: Urticaria Other Dermatologic History: Itching for past 6 months - Infectious Disease History Infectious Disease History: Reports: Chicken Pox Other Infectious Disease History: latent TB - Past Surgical History Head Surgeries/Procedures: Reports: None HEENT Surgical History: Reports: Naso-Sinus Surgery, Oral Surgery, Other (See Below) Other HEENT Surgeries/Procedures: Jaw Surgery, dental implants. septoplasy 03/29/21 Cardiovascular Surgical History: Reports: None Respiratory Surgical History: Reports: None GI Surgical History: Reports: Colonoscopy, EGD Other GI Surgeries/Procedures: biopsies with procedures. Female Surgical History: Reports: Breast Implant, D&C Other Female Surgeries/Procedures: IUD Endocrine Surgical History: Reports: None Neurological Surgical History: Reports: Other (See Below) Other Neurological Surgeries/Procedures: brain angiogram Musculoskeletal Surgical History: Reports: None Oncologic Surgical History: Reports: None Dermatological Surgical History: Reports: None Social & Family History - Family History Family Medical History: No Pertinent Family History - Tobacco Use Tobacco Use Status *Q: Never Tobacco User - Caffeine Use Caffeine Use: Reports: Soda Other Caffeine Use: states hasn't had in over one week. - Recreational Drug Use Recreational Drug Use: No - Living Situation & Occupation Living situation: Reports: Single, with Family Occupation: Unemployed ED ROS GENERAL - Review of Systems Review Of Systems: See Below Free Text/Narrative/Comment: In addition to that documented in the HPI above, the additional ROS was obtained: Constitutional: Denies fevers or chills Eyes: Denies vision changes ENMT: Denies sore throat CV: Denies chest pain Resp: Denies SOB GI: Denies vomiting or diarrhea : Denies painful urination MSK: Denies recent trauma Skin: Denies new rashes Neuro: Denies new numbness or tingling or weakness Endocrine: Denies unexpected weight loss Heme: Denies bleeding disorders ED EXAM, GENERAL - Physical Exam Exam: See Below Free Text/Narrative:: I have reviewed the triage vital signs Const: Patient is hyperactive and bed, making grand gestures Eyes: Pupils Equal and reactive to light bilaterally, no conjunctival injection HENT: No external signs of trauma to the nose. Internal exam does not demonstrate any evidence of septal hematoma, nasal discharge or other significant abnormalities. There is no perforation and septum. No signs of trauma or swelling, Neck supple without meningismus CV: Regular Rate Rhythm, Warm, well-perfused extremities RESP: Unlabored respiratory effort GI: soft, non-tender, non-distended, no masses MSK: No gross deformities appreciated Skin: Warm, dry. No rashes Neuro: Alert, filling hauler II-XII grossly intact. Sensation and motor function of extremities grossly intact. Psych: Appropriate mood and affect. Course - Vital Signs Last Recorded V/S: Last Vital Signs Temp 36.6 C 07/07/21 03:52 Pulse 94 07/07/21 03:52 Resp 20 07/07/21 03:52 BP 151/100 H 07/07/21 03:52 Pulse Ox 100 07/07/21 03:52 - Orders/Labs/Meds Orders: Active Orders 24 hr Category Date Time Status CORONAVIRUS COVID-19 OLU [MOLEC] Stat Lab 07/07/21 04:46 Received Meds: Medications Discontinued Medications Generic Name Dose Route Start Last Admin Trade Name Yo PRN Reason Stop Dose Admin Ketorolac Tromethamine 30 mg 07/07/21 04:45 07/07/21 04:52 Ketorolac 15 Mg/Ml Sdv IM 07/07/21 04:46 30 mg ONETIME ONE Administration Departure - Departure Time of Disposition: 05:13 Disposition: Home, Self-Care 01 Clinical Impression: Nose pain - Discharge Information Referrals: Rosa Che NP [Primary Care Provider] - Forms: ED Department Discharge Sepsis Event Note (ED) - Evaluation Sepsis Screening Result: No Definite Risk - Focused Exam Vital Signs: Vital Signs Temp Pulse Resp BP Pulse Ox 07/07/21 03:52 36.6 C 94 20 151/100 H 100 - My Orders Last 24 Hours: My Active Orders 07/07/21 04:46 CORONAVIRUS COVID-19 OLU [MOLEC] Stat - Assessment/Plan Last 24 Hours: My Active Orders 07/07/21 04:46 CORONAVIRUS COVID-19 OLU [MOLEC] Stat Assessment:: Patient is a 51-year-old female presenting to the emergency room with nasal pain. Patient has no evidence of infection or obvious injury. Patient does have similar presentation on March 31. She does appear to be somewhat manic which also appears to be around her baseline. She does have symptoms of fatigue, insomnia and lethargy which could be secondary to COVID-19 so COVID-19 test was sent. Otherwise, I have low suspicion for sinusitis, dental infection, encephalitis. I did urge patient to follow-up with her ENT doctors on Thursday. Return precautions were given as usual. Patient agrees with plan of care.
== END 2021-07-07 05:00 | disposition home or self-care (01) ==
LOC: JD.ED 03:43
DX: J34.89 Other specified disorders of nose and nasal sinuses (principal); Z91.09 Other allergy status, other than to drugs and biological substances; Z88.8 Allergy status to other drugs, medicaments and biological substances; Z20.822 Contact with and (suspected) exposure to COVID-19
CPT/HCPCS: 96372; 99283; J1885; U0002

== ENCOUNTER 2021-08-05 18:29 | Emergency (ER) | payer MEDICARE, MEDICAID | END 2021-08-05 18:50 | disposition left against medical advice (07) | LOC: JD.ED 18:29 | DX: Z53.21 Procedure and treatment not carried out due to patient leaving prior to being seen by health care provider (principal) ==

== ENCOUNTER 2021-09-19 17:43 | Emergency (ER) | payer MEDICARE, MEDICAID ==
[2021-09-19] MEDS ORDERED: Famotidine 20 MG/2 ML SDV IVPUSH PRN (19:38)
[2021-09-19] MEDS ORDERED: Sodium Chloride 0.9% 10 ML Syringe FLUSH PRN (19:38)
[2021-09-19] MEDS ORDERED: EPINEPHrine 1 MG/ML SDV IM PRN (19:38)
[2021-09-19] MEDS ORDERED: methylPREDNISolone Sodium Succinate 125 MG/2 ML SDV IVPUSH PRN (19:38)
[2021-09-19] MEDS ORDERED: diphenhydrAMINE 50 MG/ML SDV IVPUSH PRN (19:38)
--- NOTE | 2021-09-19 19:44 | EDM.PDOC ---
ED HPI GENERAL MEDICAL PROBLEM - General Chief Complaint: General Stated Complaint: COVID + Time Seen by Provider: 09/19/21 19:31 Source of Information: Reports: Patient, RN Notes Reviewed History Limitations: Reports: No Limitations - History of Present Illness INITIAL COMMENTS - FREE TEXT/NARRATIVE: Patient is a 51-year-old female who presents to the ER for her COVID-19. Pat coco states that she developed a cough and cold-like symptoms about 2 days ago. And she did test positive for COVID-19 today. She came to the ER for the monoclonal antibody infusion due to her "being immunosuppressed". Patient is very anxious in the room, and does speak about a somewhat recent nasal surgery that she had in March, so she always had nasal congestion and states she did not really think much of her symptoms. She did not have a fever while being in the ER, not complaining of any chills, she does have a cough with some mild shortness of breath, no nausea vomiting or diarrhea. - Related Data Allergies Allergy/AdvReac Type Severity Reaction Status Date / Time cat dander Allergy Severe Shortness Verified 09/19/21 18:52 of Breath dog dander Allergy Severe Shortness Verified 09/19/21 18:52 of Breath oxycodone [From Percocet] Allergy Unknown Cannot Verified 09/19/21 18:52 Remember prochlorperazine Allergy Unknown Cannot Verified 09/19/21 18:52 [From Compazine] Remember prochlorperazine edisylate AdvReac Severe Seizure Verified 09/19/21 18:52 [From Compazine] prochlorperazine maleate AdvReac Severe Seizure Verified 09/19/21 18:52 [From Compazine] acetaminophen [From Percocet] AdvReac Mild Nausea and Verified 09/19/21 18:52 Vomiting aspirin [From Percodan] AdvReac Mild Nausea and Verified 09/19/21 18:52 Vomiting oxycodone HCl [From Percocet] AdvReac Mild Nausea and Verified 09/19/21 18:52 Vomiting oxycodone terephthalate AdvReac Mild Nausea and Verified 09/19/21 18:52 [From Percodan] Vomiting Home Meds: Home Meds Celecoxib 200 mg PO ASDIRECTED 09/19/21 [History] Gabapentin [Neurontin] 1 tab PO ASDIRECTED 09/19/21 [History] Past Medical History HEENT History: Reports: Other (See Below) Other HEENT History: jaw surgery for underbite Respiratory History: Reports: Asthma Other Respiratory History: latent TB Gastrointestinal History: Reports: GERD Genitourinary History: Reports: UTI, Recurrent 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 that put her at high risk for stroke or seizure Psychiatric History: Reports: Anxiety, Bipolar, Depression, Other (See Below) Other Psychiatric History: insomnia Endocrine/Metabolic History: Reports: Hypothyroidism Hematologic History: Reports: Anemia Dermatologic History: Reports: Urticaria Other Dermatologic History: Itching for past 6 months - Infectious Disease History Infectious Disease History: Reports: Chicken Pox, Novel Coronavirus (09/19/21) Other Infectious Disease History: latent TB - Past Surgical History HEENT Surgical History: Reports: Naso-Sinus Surgery, Oral Surgery, Other (See Below) Other HEENT Surgeries/Procedures: Jaw Surgery, dental implants. septoplasy 03/29/21 Cardiovascular Surgical History: Reports: None GI Surgical History: Reports: Colonoscopy, EGD Other GI Surgeries/Procedures: biopsies with procedures. Female Surgical History: Reports: Breast Implant, D&C Other Female Surgeries/Procedures: IUD Neurological Surgical History: Reports: Other (See Below) Other Neurological Surgeries/Procedures: brain angiogram Social & Family History - Family History Family Medical History: No Pertinent Family History - Tobacco Use Tobacco Use Status *Q: Never Tobacco User Second Hand Smoke Exposure: No - Caffeine Use Caffeine Use: Reports: Soda Other Caffeine Use: states hasn't had in over one week. - Recreational Drug Use Recreational Drug Use: No - Living Situation & Occupation Living situation: Reports: Single, with Family Occupation: Unemployed ED ROS GENERAL - Review of Systems Review Of Systems: Comprehensive ROS is negative, except as noted in HPI. ED EXAM, GENERAL - Physical Exam Exam: See Below Exam Limited By: No Limitations General Appearance: Alert, WD/WN, No Apparent Distress, Anxious Respiratory/Chest: No Respiratory Distress, Lungs Clear, Normal Breath Sounds, No Accessory Muscle Use, Chest Non-Tender Cardiovascular: Normal Peripheral Pulses, Regular Rate, Rhythm, No Edema Peripheral Pulses: 2+: Radial (L), Radial (R) Extremities: Normal Inspection, Normal Capillary Refill Neurological: Alert, Oriented, Normal Cognition, No Motor/Sensory Deficits Psychiatric: Normal Affect, Normal Mood Skin Exam: Warm, Dry, Intact, Normal Color, No Rash Course - Vital Signs Last Recorded V/S: Last Vital Signs Temp 98.7 F 09/19/21 18:50 Pulse 100 09/19/21 18:50 Resp 20 09/19/21 18:50 BP 166/66 H 09/19/21 18:50 Pulse Ox 96 09/19/21 18:50 - Orders/Labs/Meds Orders: Active Orders 24 hr Category Date Time Status Peripheral IV Care [RC] . DIRECTED Care 09/19/21 19:38 Ordered Vital Signs [RC] Q15M Care 09/19/21 19:38 Ordered Chest 1V Frontal [CR] Stat Exams 09/19/21 19:38 Ordered EPINEPHrine [Adrenalin] Med 09/19/21 19:38 Active 0.3 mg IM ASDIRECTED PRN Famotidine [Pepcid] Med 09/19/21 19:38 Active 20 mg IVPUSH ASDIRECTED PRN Sodium Chloride 0.9% [Saline Flush] Med 09/19/21 19:38 Active 10 ml FLUSH ASDIRECTED PRN Sodium Chloride 0.9% [Saline Flush] Med 09/19/21 19:45 Active 30 ml FLUSH ASDIRECTED diphenhydrAMINE [Benadryl] Med 09/19/21 19:38 Active 50 mg IVPUSH ASDIRECTED PRN methylPREDNISolone Sod Succ [Solu-MEDROL] Med 09/19/21 19:38 Active 125 mg IVPUSH ASDIRECTED PRN Peripheral IV Insertion Adult [OM.PC] Routine Oth 09/19/21 19:38 Ordered Medication Orders Diphenhydramine HCl (Diphenhydramine 50 Mg/Ml Sdv) 50 mg IVPUSH ASDIRECTED PRN PRN Reason: hypersensitivity reaction Epinephrine HCl (Epinephrine 1 Mg/Ml Sdv) 0.3 mg IM ASDIRECTED PRN PRN Reason: hypersensitivity reaction Famotidine (Famotidine 20 Mg/2 Ml Sdv) 20 mg IVPUSH ASDIRECTED PRN PRN Reason: hypersensitivity reaction Methylprednisolone Sodium Succinate (Methylprednisolone Sodium Succinate 125 Mg/2 Ml Sdv) 125 mg IVPUSH ASDIRECTED PRN PRN Reason: hypersensitivity reaction Sodium Chloride (Sodium Chloride 0.9% 10 Ml Syringe) 30 ml FLUSH ASDIRECTED SANA Sodium Chloride (Sodium Chloride 0.9% 10 Ml Syringe) 10 ml FLUSH ASDIRECTED PRN PRN Reason: Keep Vein Open Labs: Laboratory Tests 09/19/21 09/19/21 Range/Units 20:39 20:39 WBC 4.15 (3.98-10.04) K/mm3 RBC 4.24 (3.98-5.22) M/mm3 Hgb 12.9 (11.2-15.7) gm/dl Hct 38.8 (34.1-44.9) % MCV 91.5 (79.4-94.8) fl MCH 30.4 (25.6-32.2) pg MCHC 33.2 (32.2-35.5) g/dl RDW Std Deviation 41.6 (36.4-46.3) fL Plt Count 228 D (182-369) K/mm3 MPV 9.2 L (9.4-12.3) fl Neut % (Auto) 64.5 (34.0-71.1) % Lymph % (Auto) 14.5 L (19.3-51.7) % [place] % (Auto) 17.8 H (4.7-12.5) % Eos % (Auto) 1.7 (0.7-5.8) Baso % (Auto) 1.0 (0.1-1.2) % Neut # (Auto) 2.68 (1.56-6.13) K/mm3 Lymph # (Auto) 0.60 L (1.18-3.74) K/mm3 [place] # (Auto) 0.74 H (0.24-0.36) K/mm3 Eos # (Auto) 0.07 (0.04-0.36) K/mm3 Baso # (Auto) 0.04 (0.01-0.08) K/mm3 Sodium 136 (136-145) mEq/L Potassium 3.6 (3.5-5.1) mEq/L Chloride 103 (98-107) mEq/L Carbon Dioxide 22 (21-32) mEq/L Anion Gap 14.6 (5-15) BUN 13 (7-18) mg/dL Creatinine 1.0 (0.55-1.02) mg/dL Est Cr Clr Drug Dosing 68.65 mL/min Estimated GFR (MDRD) 59 (>60) mL/min BUN/Creatinine Ratio 13.0 L (14-18) Glucose 91 (70-99) mg/dL Calcium 7.9 L (8.5-10.1) mg/dL Total Bilirubin 0.2 (0.2-1.0) mg/dL AST 29 (15-37) U/L ALT 42 (14-59) U/L Alkaline Phosphatase 83 (46-116) U/L C-Reactive Protein 2.6 H* (<1.0) mg/dL Total Protein 7.2 (6.4-8.2) g/dl Albumin 3.1 L (3.4-5.0) g/dl Globulin 4.1 gm/dL Albumin/Globulin Ratio 0.8 L (1-2) Meds: Medications Generic Name Dose Route Start Last Admin Trade Name Freq PRN Reason Stop Dose Admin Diphenhydramine HCl 50 mg 09/19/21 19:38 Diphenhydramine 50 Mg/Ml Sdv IVPUSH ASDIRECTED PRN hypersensitivity reaction Epinephrine HCl 0.3 mg 09/19/21 19:38 Epinephrine 1 Mg/Ml Sdv IM ASDIRECTED PRN hypersensitivity reaction Famotidine 20 mg 09/19/21 19:38 Famotidine 20 Mg/2 Ml Sdv IVPUSH ASDIRECTED PRN hypersensitivity reaction Methylprednisolone Sodium Succinate 125 mg 09/19/21 19:38 Methylprednisolone Sodium Succinate 125 Mg/2 Ml Sdv IVPUSH ASDIRECTED PRN hypersensitivity reaction Sodium Chloride 30 ml 09/19/21 19:45 Sodium Chloride 0.9% 10 Ml Syringe FLUSH ASDIRECTED SANA Sodium Chloride 10 ml 09/19/21 19:38 Sodium Chloride 0.9% 10 Ml Syringe FLUSH ASDIRECTED PRN Keep Vein Open Discontinued Medications Generic Name Dose Route Start Last Admin Trade Name Freq PRN Reason Stop Dose Admin CASIRIVIMAB/IMDEVIMAB 10 ml/ 110 mls @ 220 mls/hr 09/19/21 19:38 09/19/21 20:04 Sodium Chloride IV 09/19/21 20:07 220 mls/hr ONETIME ONE Administration - Re-Assessments/Exams Free Text/Narrative Re-Assessment/Exam: 09/19/21 19:44 Patient presents to the ER for COVID-19 symptoms. I spoke with the patient to provide information about monoclonal antibody treatment. I offered them the "Patient and caregiver EUA monoclonal antibody fact sheet" to read and review. I stated that the drug has been approved by an emergency use authorization (EUA) process and has not been fully FDA reviewed or approved. The patient meets the EUA requirements. I discussed there are other potential treatment options that are currently not FDA approved to treat COVID-19. I did offer an opportunity to ask questions and all questions were answered. The patient voiced understanding and agreed to proceed with the treatment. She will also get some basic labs and chest x-ray for ongoing management. 09/19/21 20:32 The patient's chest x-ray shows no obvious sign of acute consolidative processes. 09/19/21 21:27 Patient's laboratory evaluation is essentially unremarkable, CRP is little bit elevated at 2.7 but she is infectious with COVID at this time. We will go ahead and discharge her home with general recommendations. Departure - Departure Time of Disposition: 20:48 Disposition: Home, Self-Care 01 Condition: Good Clinical Impression: COVID-19 - Discharge Information *PRESCRIPTION DRUG MONITORING PROGRAM REVIEWED*: No *COPY OF PRESCRIPTION DRUG MONITORING REPORT IN PATIENT SPENCER: No Instructions: 10 Things You Can Do to Manage Your COVID-19 Symptoms at Home - [facility] (04/05/2021) Referrals: Rosa Che NP [Primary Care Provider] - Forms: ED Department Discharge Additional Instructions: You were seen in the ER today for ongoing and/or worsening respiratory symptoms. Your chest x-ray showed no signs of pneumonia at this time. Your oxygen levels were great at 95-96% on room air. You were given IV monoclonal antibody therapy at today's visit, this medication is thought to work by making you a little less sick, and helps to decrease the length of time that you are sick. Please try to increase your oral fluid intake, and eat multiple small meals throughout the day, to keep yourself healthy. You need to keep yourself ainsley shed in order to fight off this disease. You can try a liquid diet like gatorade/powerade as well to get your electrolytes. You may take 500 mg Tylenol every hours 6 hours for pain/fever relief. Do not exceed 4000 mg Tylenol in a 24-hour time span. However, running a fever is your body's natural response to illness, and it allows the body to develop antibodies to disease, we are recommending trying to limit the use of Tylenol as much as possible to allow your body's natural immune response. Recommend you obtain a pulse oximeter and monitor your oxygen levels at home, you should place the monitor on your finger, and sit in a calm, quiet position for a few minutes and then record the number that is on the screen. If this consistently below 90% on room air without movement, this would be cause for concern to come back to the hospital for further management of your COVID-19 disease. CDC current guidelines for Covid quarantine/isolation you are to stay home the first 5 days of illness and you may venture out of your house with a mask on days 5 through 10. Sepsis Event Note (ED) - Focused Exam Vital Signs: Vital Signs Temp Pulse Resp BP Pulse Ox 09/19/21 18:50 98.7 F 100 20 166/66 H 96 - My Orders Last 24 Hours: My Active Orders 09/19/21 19:38 Peripheral IV Care [RC] . DIRECTED Vital Signs [RC] Q15M Chest 1V Frontal [CR] Stat EPINEPHrine [Adrenalin] 0.3 mg IM ASDIRECTED PRN Famotidine [Pepcid] 20 mg IVPUSH ASDIRECTED PRN Sodium Chloride 0.9% [Saline Flush] 10 ml FLUSH ASDIRECTED PRN diphenhydrAMINE [Benadryl] 50 mg IVPUSH ASDIRECTED PRN methylPREDNISolone Sod Succ [Solu-MEDROL] 125 mg IVPUSH ASDIRECTED PRN Peripheral IV Insertion Adult [OM.PC] Routine 09/19/21 19:45 Sodium Chloride 0.9% [Saline Flush] 30 ml FLUSH ASDIRECTED - Assessment/Plan Last 24 Hours: My Active Orders 09/19/21 19:38 Peripheral IV Care [RC] . DIRECTED Vital Signs [RC] Q15M Chest 1V Frontal [CR] Stat EPINEPHrine [Adrenalin] 0.3 mg IM ASDIRECTED PRN Famotidine [Pepcid] 20 mg IVPUSH ASDIRECTED PRN Sodium Chloride 0.9% [Saline Flush] 10 ml FLUSH ASDIRECTED PRN diphenhydrAMINE [Benadryl] 50 mg IVPUSH ASDIRECTED PRN methylPREDNISolone Sod Succ [Solu-MEDROL] 125 mg IVPUSH ASDIRECTED PRN Peripheral IV Insertion Adult [OM.PC] Routine 09/19/21 19:45 Sodium Chloride 0.9% [Saline Flush] 30 ml FLUSH ASDIRECTED
[2021-09-19] MEDS ORDERED: Sodium Chloride 0.9% 10 ML Syringe FLUSH SCH (19:45)
[2021-09-19 21:57] VITALS: BP 116/68; PULSE 101
--- NOTE | 2021-09-20 08:32 | CR ---
Chest: Portable view of the chest was obtained. Comparison: Prior chest x-ray of 09/15/19. Heart size and mediastinum are within normal limits. Lungs are clear with no acute parenchymal change. Bony structures show nothing acute. Impression: 1. Nothing acute is seen on portable chest x-ray. Diagnostic code #1
== END 2021-09-19 21:49 | disposition home or self-care (01) ==
LOC: JD.ED 17:43
DX: U07.1 COVID-19 (principal); Z88.5 Allergy status to narcotic agent; Z91.09 Other allergy status, other than to drugs and biological substances; Z88.8 Allergy status to other drugs, medicaments and biological substances
CPT/HCPCS: 36415; 71045; 80053; 85025; 86140; 99283; M0243; Q0243

== ENCOUNTER 2021-09-22 18:29 | Emergency (ER) | payer MEDICARE, MEDICAID ==
[2021-09-22 19:15] VITALS: BP 118/83; PULSE 87
--- NOTE | 2021-09-22 19:58 | EDM.PDOC ---
ED HPI GENERAL MEDICAL PROBLEM - General Chief Complaint: Gastrointestinal Problem Stated Complaint: covid + Time Seen by Provider: 09/22/21 18:47 Source of Information: Reports: Patient History Limitations: Reports: No Limitations - History of Present Illness INITIAL COMMENTS - FREE TEXT/NARRATIVE: 51-year-old female presents the emergency department with complaints of "feeling crappy". Patient was diagnosed with Covid on September 18, 2021 and received antibody treatment here in the emergency department. She states that her symptoms are progressively getting better and she is only coughed 3 times today. She denies any shortness of breath. She denies any fever chills or body discomfort however she states that she did develop diarrhea today. She states she is drinking plenty of fluids well. She states she has had 3-4 diet Cokes today and one bottle of Gatorade. She states she is eating small frequent meals. She was under the understanding that the antibody treatment was a cure for her Covid symptoms and she is questioning why she is not better. 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 - Related Data Allergies Allergy/AdvReac Type Severity Reaction Status Date / Time cat dander Allergy Severe Shortness Verified 09/22/21 19:16 of Breath dog dander Allergy Severe Shortness Verified 09/22/21 19:16 of Breath oxycodone [From Percocet] Allergy Unknown Cannot Verified 09/22/21 19:16 Remember prochlorperazine Allergy Unknown Cannot Verified 09/22/21 19:16 [From Compazine] Remember prochlorperazine edisylate AdvReac Severe Seizure Verified 09/22/21 19:16 [From Compazine] prochlorperazine maleate AdvReac Severe Seizure Verified 09/22/21 19:16 [From Compazine] acetaminophen [From Percocet] AdvReac Mild Nausea and Verified 09/22/21 19:16 Vomiting aspirin [From Percodan] AdvReac Mild Nausea and Verified 09/22/21 19:16 Vomiting oxycodone HCl [From Percocet] AdvReac Mild Nausea and Verified 09/22/21 19:16 Vomiting oxycodone terephthalate AdvReac Mild Nausea and Verified 09/22/21 19:16 [From Percodan] Vomiting Home Meds: Home Meds Celecoxib 200 mg PO ASDIRECTED 09/19/21 [History] Gabapentin [Neurontin] 1 tab PO ASDIRECTED 09/19/21 [History] Past Medical History HEENT History: Reports: Other (See Below) Other HEENT History: jaw surgery for underbite Cardiovascular History: Reports: None Respiratory History: Reports: Asthma Other Respiratory History: latent TB Gastrointestinal History: Reports: GERD Genitourinary History: Reports: UTI, Recurrent 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 that put her at high risk for stroke or seizure Psychiatric History: Reports: Anxiety, Bipolar, Depression, Other (See Below) Other Psychiatric History: insomnia Endocrine/Metabolic History: Reports: Hypothyroidism Hematologic History: Reports: Anemia Immunologic History: Reports: None Oncologic (Cancer) History: Reports: None Dermatologic History: Reports: Urticaria Other Dermatologic History: Itching for past 6 months - Infectious Disease History Infectious Disease History: Reports: Chicken Pox, Novel Coronavirus Other Infectious Disease History: latent TB - Past Surgical History Head Surgeries/Procedures: Reports: None HEENT Surgical History: Reports: Naso-Sinus Surgery, Oral Surgery, Other (See Below) Other HEENT Surgeries/Procedures: Jaw Surgery, dental implants. septoplasy 03/29/21 Cardiovascular Surgical History: Reports: None Respiratory Surgical History: Reports: None GI Surgical History: Reports: Colonoscopy, EGD Other GI Surgeries/Procedures: biopsies with procedures. Female Surgical History: Reports: Breast Implant, D&C Other Female Surgeries/Procedures: IUD Endocrine Surgical History: Reports: None Neurological Surgical History: Reports: Other (See Below) Other Neurological Surgeries/Procedures: brain angiogram Musculoskeletal Surgical History: Reports: None Oncologic Surgical History: Reports: None Dermatological Surgical History: Reports: None Social & Family History - Family History Family Medical History: No Pertinent Family History - Tobacco Use Tobacco Use Status *Q: Never Tobacco User - Caffeine Use Caffeine Use: Reports: Soda Other Caffeine Use: states hasn't had in over one week. - Recreational Drug Use Recreational Drug Use: No - Living Situation & Occupation Living situation: Reports: Single, with Family Occupation: Unemployed ED ROS GENERAL - Review of Systems Review Of Systems: Comprehensive ROS is negative, except as noted in HPI. ED EXAM, GI/ABD - Physical Exam Exam: See Below Exam Limited By: No Limitations General Appearance: Alert, WD/WN, No Apparent Distress Eyes: Bilateral: Normal Appearance Ears: Normal External Exam, Hearing Grossly Normal Nose: Normal Inspection Throat/Mouth: Normal Inspection, Normal Lips, Normal Oropharynx, Normal Voice, No Airway Compromise Head: Atraumatic, Normocephalic Neck: Normal Inspection, Supple Respiratory/Chest: No Respiratory Distress, Lungs Clear, Normal Breath Sounds, No Accessory Muscle Use, Chest Non-Tender Cardiovascular: Normal Peripheral Pulses, Regular Rate, Rhythm, No Edema, No Murmur GI/Abdominal Exam: Normal Bowel Sounds, Soft, Non-Tender, No Distention (Female) Exam: Deferred Rectal (Female) Exam: Deferred Back Exam: Normal Inspection Extremities: Normal Inspection Neurological: Alert, Oriented, Normal Cognition Psychiatric: Anxious Skin Exam: Warm, Dry, Intact, Normal Color, No Rash Lymphatic: No Adenopathy Course - Vital Signs Text/Narrative:: As stated above, patient presents with Covid symptoms that have not resolved despite receiving antibody treatment. Patient however is not ill-appearing. Her O2 saturations were percent on room air. The she denies any shortness of breath and has only coughed 3 times today. She has been eating and drinking appropriately however states she developed some diarrhea today. Physical exam is unremarkable. Her lungs are clear abdomen is soft and nontender bowel tones are positive in all 4 quadrants and her heart rate is regular. I did offer to do lab studies on the patient and she has stated that she does not think that is necessary. I did remind her that she needs to quarantine for 10 days time from the onset of her symptoms and she is very upset about this as she states she wants to go to play her sports prior to have supper. Patient will be discharged home. Last Recorded V/S: Last Vital Signs Temp 98.8 F 09/22/21 19:07 Pulse 87 09/22/21 19:07 Resp 20 09/22/21 19:07 BP 118/83 09/22/21 19:07 Pulse Ox 100 09/22/21 19:07 Departure - Departure Time of Disposition: 20:01 Disposition: Home, Self-Care 01 Condition: Good Clinical Impression: COVID-19 - Discharge Information Instructions: 10 Things You Can Do to Manage Your COVID-19 Symptoms at Home - [facility] (04/05/2021), COVID-19: Quarantine vs. Isolation - [facility] (09/06/2020) Referrals: Rosa Che NP [Primary Care Provider] - Forms: ED Department Discharge Additional Instructions: You were seen in the emergency department today due to the fact that your Covid symptoms have not resolved despite receiving antibiotic treatment. As discussed the antibody treatment is not a cure for Covid it only lessens the severity of your symptoms and the length of time that you have them. Your symptoms, you stated, were significantly better and you have had minimal coughing and no shortness of breath. Your appetite has been good and you are drinking well. However you did state that you developed diarrhea today. This is a symptom of Covid. You may take some Imodium per label instructions to treat your diarrhea symptoms. Continue to get plenty of rest and drink plenty of fluids. You do need to continue your quarantine for total of 10 days time from the onset of your symptoms. Follow-up with your primary care provider as needed. Should your condition worsen or change, do not hesitate returning to the emergency department. Sepsis Event Note (ED) - Focused Exam Vital Signs: Vital Signs Temp Pulse Resp BP Pulse Ox 09/22/21 19:07 98.8 F 87 20 118/83 100
== END 2021-09-22 20:15 | disposition home or self-care (01) ==
LOC: JD.ED 18:29
DX: U07.1 COVID-19 (principal); Z91.09 Other allergy status, other than to drugs and biological substances; Z88.5 Allergy status to narcotic agent; Z88.8 Allergy status to other drugs, medicaments and biological substances; Z88.6 Allergy status to analgesic agent
CPT/HCPCS: 99283